=== PATIENT | female | born 2000 ===

== ENCOUNTER → 2020-02-12 11:30 | Outpatient (BNVA) | payer BC, OTHER, SELFPAY | PROVIDERS: PCP Physician Assistant; Referring Provider Physician Assistant; Visit Provider Internal Medicine Gastroenterology | DX: Z76.89 Persons encountering health services in other specified circumstances (principal) ==

== ENCOUNTER 2020-03-27 14:07 | Outpatient (REF) | payer BC, OTHER, SELFPAY | END 2020-03-27 14:08 | disposition home or self-care (01) | LOC: HO.LAB 14:07 | PROVIDERS: PCP Physician Assistant; Visit Provider Internal Medicine | DX: Z20.828 Contact with and (suspected) exposure to other viral communicable diseases (principal) | CPT/HCPCS: C9803; U0003 ==

== ENCOUNTER 2020-04-29 10:54 | Outpatient (REF) | payer BC, OTHER, SELFPAY ==
--- NOTE | 2020-04-29 11:18 | XR_ITS ---
EXAMINATION: XR ABDOMEN COMPLETE CLINICAL INDICATION: Generalized abdominal pain COMPARISON: None TECHNIQUE: 2 views of the abdomen. FINDINGS: The bowel gas pattern is normal with no evidence of ileus or obstruction. No unusual soft tissue calcifications are noted. The bones are unremarkable. XR/XR abdomen min 2V IMPRESSION: Unremarkable examination.
[2020-04-29 11:31] LABS: MANUAL DIFF FLAG NO
[2020-04-29 11:36] LABS: Basophils Percent Auto 0.8 % (0-2); Eosinophils Absolute Auto 0.1 X10*3/uL (0.0-0.4); Eosinophils Percent Auto 2.3 % (0-4); Hematocrit 39.1 % (37-47); Hemoglobin 13.3 g/dl (12.0-16.0); Imm Gran Abs Auto 0.01 X10*3/uL (0.00-0.03); Imm Gran Pct Auto 0.2 % (0.0-0.4); Lymphocytes Absolute Auto 1.6 X10*3/uL (1.2-4.9); Lymphocytes Percent Auto 30.2 % (20-40); Mean Corpuscular Hemoglobin 30.2 pg (27.0-33.0); Mean Corpuscular Volume 88.7 fL (80-98); Monocytes Absolute Auto 0.4 X10*3/uL (0.1-1.2); Monocytes Percent Auto 7.6 % (2-11); Neutrophils Absolute Auto 3.1 X10*3/uL (2.0-8.3); Neutrophils Percent Auto 58.9 % (45-73); Platelet Count 365 X10*3/uL (160-400); Red Blood Count 4.41 X10*6/uL (4.20-5.50); Red Cell Distribution Width 12.8 % (11.0-16.0); White Blood Count 5.3 X10*3/uL (4.8-10.8)
[2020-04-29 11:58] LABS: Alanine Aminotransferase 9 U/L (0-31); Albumin Level 4.6 g/dL (3.5-5.0); Alkaline Phosphatase 50 U/L (39-117); Anion Gap 14 (12-20); Aspartate Amino Transferase 12 U/L (5-31); Bilirubin Direct 0.3 mg/dL (0.0-0.5); Bilirubin Total 0.6 mg/dL (0.0-1.0); Blood Urea Nitrogen 6 mg/dL (9-16); Calcium 9.6 mg/dL (8.4-10.2); Carbon Dioxide 27 mmol/L (22-29); Chloride 104 mmol/L (96-108); Estimated Glomerular Filt Rate > 60; Glucose Fasting 78 mg/dL (60-99); Sodium 141 mmol/L (135-145); Total Protein 7.4 g/dL (6.5-8.0)
== END 2020-04-29 10:55 | disposition home or self-care (01) ==
LOC: HO.LAB 10:54
PROVIDERS: Absent Provider Physician Assistant; PCP Physician Assistant; Visit Provider Nurse Practitioner Family
DX: R10.84 Generalized abdominal pain (principal); R11.0 Nausea; K21.9 Gastro-esophageal reflux disease without esophagitis
CPT/HCPCS: 36415; 74019; 80048; 80076; 85025

== ENCOUNTER → 2020-05-13 11:34 | Outpatient (BNVA) | payer BC, OTHER, SELFPAY | PROVIDERS: PCP Physician Assistant; Visit Provider Internal Medicine Gastroenterology ==

== ENCOUNTER 2020-05-21 09:05 | Outpatient (REF) | payer BC, OTHER, SELFPAY ==
--- NOTE | ~2020-05-21 | FL_ITS ---
EXAMINATION: SMALL BOWEL CLINICAL INFORMATION: Generalized abdominal pain. COMPARISON: None. TECHNIQUE: KUB was obtained. Subsequently, 2 cups of barium was administered and sequential images obtained over the abdomen. FINDINGS: KUB: There is scattered stool and gas seen. No distention. Following oral administration of 2 cups of barium, there is good opacification of stomach, duodenal bulb and sweep. There is contrast opacifying small bowel loops which are normal in course and caliber. No stricture, distention or mass effect seen. On spot images, the ileocecal junction, terminal ileum and cecum appear normal. Appendix is not seen. The small bowel transit time is 60 minutes. FLUOROSCOPY TIME: 0.5 minutes. DOSE AREA PRODUCT: 2.366 uGy-m2 (microgray-meter squared). FL/FL upper GI small bowel IMPRESSION: Unremarkable small bowel follow-through.
== END 2020-05-21 09:06 | disposition home or self-care (01) ==
LOC: HO.XRAY 09:05
PROVIDERS: Visit Provider Physician Assistant
DX: R10.84 Generalized abdominal pain (principal)
CPT/HCPCS: 74240; 74248

== ENCOUNTER 2021-04-21 05:53 | Emergency (ER) | payer BC, SELFPAY ==
--- NOTE | ~2021-04-21 | CT_ITS ---
EXAMINATION: CT ABDOMEN AND PELVIS WITH CONTRAST CLINICAL INFORMATION: Abdominal pain. COMPARISON: Small bowel follow-through fluoroscopic study dated from 05/21/2020 and abdominal ultrasound dated from 11/02/2019. TECHNIQUE: Multidetector volumetric images were obtained from the superior aspect of the liver through the pubic symphysis following administration 85 mL of Omnipaque 350 intravenous contrast. Sagittal and coronal reformatted images were obtained on the technologist's workstation. Oral contrast: No This CT examination was performed using dose optimization techniques as appropriate, variously including the following: *Automated exposure control *Adjustment of mA and/or kV according to patient size (this includes techniques or standardized protocols for targeted exams where dose is matched to indication/reason for exam; i.e. extremities or head) *Use of iterative reconstruction technique DLP: 414 mGy-cm FINDINGS: LUNG BASES: The visualized lung bases are unremarkable. LIVER, GALLBLADDER, AND BILIARY TREE: The liver is normal in size, shape, and attenuation. No focal hepatic lesion or biliary ductal dilatation is present. The gallbladder is unremarkable with no evidence of radiopaque gallstones, gallbladder wall thickening, or obvious pericholecystic inflammatory changes. PANCREAS: Unremarkable. SPLEEN: Unremarkable. ADRENAL GLANDS: Unremarkable. KIDNEYS AND URETERS: There are patchy bilateral nephrograms with a few too small to characterize cortical hypodensities that likely represent simple cysts. No nephrolithiasis or hydronephrosis. No significant perinephric fat stranding. BLADDER: Unremarkable. GASTROINTESTINAL TRACT: The stomach and the small bowel are nondilated. Normal appendix. The distal colon is under distended which limits assessment of wall thickening. However, there is no significant pericolic inflammatory changes to suspect acute colitis or acute diverticulitis. No bowel obstruction. ABDOMINAL WALL: No significant hernia is appreciated. LYMPH NODES: There is subtle symmetric fat stranding of the lower anterior mesentery (5:20) which is likely in part related with volume averaging and of uncertain significance. There is no lymphadenopathy by size criteria. VASCULAR: Unremarkable. PELVIC VISCERA: Questionable small intramural fibroid in the fundus measuring 1.2 cm on image 34 of series 5. The left ovary is identified on image 55 and the right ovary is identified on image 61 of series 3. These are within normal limits. There is trace amount of free fluid layering in the cul-de-sac which is likely physiologic. OSSEOUS STRUCTURES: No acute or aggressive osseous abnormalities. CT/CT abdomen pelvis w con IMPRESSION: Bilateral striated nephrograms are indeterminate and could be related with acute pyelonephritis in the appropriate clinical context. This critical result was discussed with Dr. Grace at 04/21/2021 10:31 AM and it was ascertained that the content and urgency of the report was understood at the time of direct communication.
[2021-04-21 06:09] VITALS: BP 108/58; PULSE 96; RESP 20; TEMP 35.6; O2SAT 100; BMI 23.8
[2021-04-21] MEDS: ondansetron HCL 4 MG/2 ML VIAL IVPUSH ×2 (06:13→07:50)
--- NOTE | 2021-04-21 06:21 | PC.NURSE ---
Pt medicated for vomiting. Pt aware of plan for urine sample once able.
--- NOTE | 2021-04-21 07:25 | PC.NURSE ---
awaiting md stock, c/o severe low abd pain, skin wpd, still has nausea, no vomitting
--- NOTE | 2021-04-21 07:40 | ED.FEMALEGU ---
HPI - Female Genitourinary General Chief complaint: Urogenital-Female Stated complaint: vomiting Time Seen by Provider: 04/21/21 06:04 Source: patient Mode of arrival: ambulatory Limitations: no limitations History of Present Illness HPI Narrative: This is a 21 years old of female presented to the emergency department with chief complaint of nausea abdominal cramps, she states that each time she gets periods she get nausea and vomiting MD elicited complaint: other (vomiting) Onset (ago): day(s) (1) Severity: moderate Female Urogenital Radiation: Non-Radiating Quality of pain: cramping Consistency: constant Exacerbating factors: none Relieving factors: none Treatment prior to arrival: none Related Data Previous Rx's Medication Instructions Recorded metronidazole 1 % topical gel 1 appl TOPICAL DAILY 30 Days #60 g 08/13/20 ondansetron HCl 8 mg tablet 8 mg PO Q12H PRN #30 tab 08/13/20 promethazine 12.5 mg tablet 12.5 mg PO BEDTIME PRN 30 Days #30 03/30/21 tab MDD 1 pantoprazole 20 mg tablet,delayed 20 mg PO DAILY #30 tab 04/13/21 release cephalexin 500 mg capsule 500 mg PO Q8H #21 cap 04/21/21 metoclopramide HCl 10 mg tablet 10 mg PO Q6H PRN #15 tab 04/21/21 (Reglan) Allergies Allergy/AdvReac Type Severity Reaction Status Date / Time seasonal Allergy Unknown sneezing, Uncoded 04/21/21 06:13 stuffy nose Review of Systems Constitutional: Constitutional: Reports no additional constitutional complaints Cardiovascular: Cardiovascular: Reports no additional cardiovascular complaints Respiratory: Respiratory: Reports no additional respiratory complaints Gastrointestinal: Gastrointestinal: Reports no additional gastrointestinal complaints [facility] Past Medical History Medical History GERD (gastroesophageal reflux disease) Headache Nausea Surgical History History of placement of ear tubes Family History Family History Father In good health Mother Mood disorder Depression Chronic mental illness Maternal Grandmother Lymphoma Social History Social History Household Members: Family Household Members Other:: Mother Alcohol intake: never Advance Directives: No Advance Directives Information Provided: Yes Patient : No 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 [employer] Physical Exam Vital Signs: Vital Signs: Last Vital Signs Temp 98.8 F 04/21/21 10:36 Pulse 61 04/21/21 10:36 Resp 16 04/21/21 10:36 BP 114/80 04/21/21 10:36 Pulse Ox 100 04/21/21 10:36 BMI result Body Mass Index 23.8 Const: General: cooperative Nutritional Appearance: average body habitus Orientation/consciousness: patient oriented x3 Limitations: no limitations HENMT: Head: Yes normal to inspection General nose exam: Normal external nose present Face and sinus: Yes normal facial exam Mouth: Normal oral and palatal mucosa present Neck: Neck: Yes normal visual inspection and Yes full ROM Chest: Chest palpation & inspection: normal inspection of the chest Resp: Effort & Inspection: normal respiratory effort Auscultation: clear to auscultation bilaterally Cardio: Jugular venous distension: no JVD Rate: regular rate Rhythm: regular rhythm GI: Other: soft no tender no peritoneal sign : External Female Exam: normal external appearance Speculum Exam - Vagina: normal appearance of the vagina Speculum Exam - Cervix: normal appearance of the cervix and Other cervical findings present (minimal bleeding) Skin: General skin exam: no rashes or lesions noted and elasticity normal Wounds: no wounds Neuro: General: patient oriented x3 Course Reevaluation(s) Reevaluation #1: She is feeling much better now she is tolerating p.o. well CT scan read by the radiologist as a possible pyelo, but UA is not impressive. At this will discharge pt home with follow-up with primary care physician,I will give a couse of AB given reading in the ct MDM - Female Genitourinary Lab Data Result diagrams: 04/21/21 07:44 04/21/21 07:44 Labs: Lab Results 04/21/21 04/21/21 04/21/21 Range/Units 07:44 07:44 10:33 WBC 14.0 H (4.8-10.8) X10*3/uL RBC 4.49 (4.20-5.50) X10*6/uL Hgb 13.7 (12.0-16.0) g/dl Hct 39.6 (37.0-47.0) % MCV 88.2 (80.0-98.0) fL MCH 30.5 (27.0-33.0) pg MCHC 34.6 (31.0-35.0) g/dl RDW 12.4 (11.0-16.0) % Plt Count 368 (160-400) X10*3/uL MPV 9.3 L (9.4-12.3) fL Immature Gran % (Auto) 0.6 H (0.0-0.4) % Neut % (Auto) 78.9 H (45-73) % Lymph % (Auto) 10.2 L (20-40) % [place] % (Auto) 9.3 (2-11) % Eos % (Auto) 0.6 (0-4) % Baso % (Auto) 0.4 (0-2) % Lymph # (Auto) 1.4 (1.2-4.9) X10*3/uL [place] # (Auto) 1.3 H (0.1-1.2) X10*3/uL Eos # (Auto) 0.1 (0.0-0.4) X10*3/uL Baso # (Auto) 0.1 (0.0-0.2) X10*3/uL Abs Immat Gran (auto) 0.09 H (0.00-0.03) X10*3/uL Absolute Neuts (auto) 11.1 H (2.0-8.3) x10*3/uL Absolute Nucleated RBC 0.000 (0.0-0.012) X10*3/uL Nucleated RBC % (auto) 0.0 (0.0-0.2) /100WBC Sodium 140 (135-145) mmol/L Potassium 3.3 (3.3-5.1) mmol/L Chloride 109 H (96-108) mmol/L Carbon Dioxide 18 L (22-29) mmol/L Anion Gap 16 (12-20) BUN 12 (9-16) mg/dL Creatinine 0.88 (0.5-1.4) mg/dL Estim Creat Clear Calc 79.9 Estimated GFR > 60 Random Glucose 148 H (60-115) mg/dL Calcium 10.0 (8.4-10.2) mg/dL Total Bilirubin 0.6 (0.0-1.0) mg/dL AST 14 (5-31) U/L ALT 13 (0-31) U/L Alkaline Phosphatase 52 (39-117) U/L Total Protein 7.3 (6.5-8.0) g/dL Albumin 4.2 (3.5-5.0) g/dL Beta HCG, Quant < 2 mIU/mL Urine Color PINK Urine Appearance HAZY Urine pH 7.0 (5.0-8.0) Ur Specific [place] 1.015 (1.005-1.025) Urine Protein TRACE (NEG-TRACE) MG/DL Urine Glucose (UA) NEG (NEG) MG/DL Urine Ketones 15 (NEG) MG/DL Urine Blood 3+ H (NEG) Urine Nitrite NEG (NEG) Ur Leukocyte Esterase TRACE H (NEG) Urine RBC TNTC H (0) /HPF Urine WBC 1-4 (0-4) /HPF Ur Squamous Epith Cells 1+ /LPF Urine Bacteria NONE /LPF Urine Test (NEGATIVE) 04/21/21 Range/Units 10:33 WBC (4.8-10.8) X10*3/uL RBC (4.20-5.50) X10*6/uL Hgb (12.0-16.0) g/dl Hct (37.0-47.0) % MCV (80.0-98.0) fL MCH (27.0-33.0) pg MCHC (31.0-35.0) g/dl RDW (11.0-16.0) % Plt Count (160-400) X10*3/uL MPV (9.4-12.3) fL Immature Gran % (Auto) (0.0-0.4) % Neut % (Auto) (45-73) % Lymph % (Auto) (20-40) % [place] % (Auto) (2-11) % Eos % (Auto) (0-4) % Baso % (Auto) (0-2) % Lymph # (Auto) (1.2-4.9) X10*3/uL [place] # (Auto) (0.1-1.2) X10*3/uL Eos # (Auto) (0.0-0.4) X10*3/uL Baso # (Auto) (0.0-0.2) X10*3/uL Abs Immat Gran (auto) (0.00-0.03) X10*3/uL Absolute Neuts (auto) (2.0-8.3) x10*3/uL Absolute Nucleated RBC (0.0-0.012) X10*3/uL Nucleated RBC % (auto) (0.0-0.2) /100WBC Sodium (135-145) mmol/L Potassium (3.3-5.1) mmol/L Chloride (96-108) mmol/L Carbon Dioxide (22-29) mmol/L Anion Gap (12-20) BUN (9-16) mg/dL Creatinine (0.5-1.4) mg/dL Estim Creat Clear Calc Estimated GFR Random Glucose (60-115) mg/dL Calcium (8.4-10.2) mg/dL Total Bilirubin (0.0-1.0) mg/dL AST (5-31) U/L ALT (0-31) U/L Alkaline Phosphatase (39-117) U/L Total Protein (6.5-8.0) g/dL Albumin (3.5-5.0) g/dL Beta HCG, Quant mIU/mL Urine Color Urine Appearance Urine pH (5.0-8.0) Ur Specific [place] (1.005-1.025) Urine Protein (NEG-TRACE) MG/DL Urine Glucose (UA) (NEG) MG/DL Urine Ketones (NEG) MG/DL Urine Blood (NEG) Urine Nitrite (NEG) Ur Leukocyte Esterase (NEG) Urine RBC (0) /HPF Urine WBC (0-4) /HPF Ur Squamous Epith Cells /LPF Urine Bacteria /LPF Urine Test NEGATIVE (NEGATIVE) Imaging Data CT scan - abdomen: Radiologist's impression: anterior mesentery (5:20) which is likely in part related with volume averaging and of uncertain significance. There is no lymphadenopathy by size criteria. VASCULAR: Unremarkable. PELVIC VISCERA: Questionable small intramural fibroid in the fundus measuring 1.2 cm on image 34 of series 5. The left ovary is identified on image 55 and the right ovary is identified on image 61 of series 3. These are within normal limits. There is trace amount of free fluid layering in the cul-de-sac which is likely physiologic.? OSSEOUS STRUCTURES: No acute or aggressive osseous abnormalities.? CT/CT abdomen pelvis w con IMPRESSION: ? Bilateral striated nephrograms are indeterminate and could be related with acute pyelonephritis in the appropriate clinical context. ? This critical result was discussed with Dr. Grace at 04/21/2021 10:31 AM and it was ascertained that the content and urgency of the report was understood at the time of direct communication. ? Dictated By: Daphnie Solano Signed By: <Electronically signed by Daphnie? Russ in OV> 04/21/21 1032 DD/ 0954 TD/TT:? 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: Dictated By: Discharge Plan Discharge Clinical Impression: Vomiting, UTI (urinary tract infection), Nausea Patient Disposition: Home, Self-Care Instructions: Acute Nausea and Vomiting (ED) Additional Instructions: Follow-up with your primary care physician, clear liquid diet today, return if you worse Prescriptions: New cephalexin 500 mg capsule 500 mg PO Q8H Qty: 21 RF: 0 metoclopramide HCl [Reglan] 10 mg tablet 10 mg PO Q6H PRN (Reason: nausea and vomiting) Qty: 15 RF: 0 No Action promethazine 12.5 mg tablet 12.5 mg PO BEDTIME MDD 1 PRN (Reason: nausea and vomiting) 30 Days Qty: 30 RF: 3 pantoprazole 20 mg tablet,delayed release (DR/EC) 20 mg PO DAILY Qty: 30 RF: 3 metronidazole 1 % gel 1 appl topical DAILY 30 Days Qty: 60 RF: 0 ondansetron HCl 8 mg tablet 8 mg PO Q12H PRN (Reason: nausea and vomiting) Qty: 30 RF: 1 Referrals: Derek Dia PA-C [Primary Care Provider] - 2 days
[2021-04-21 07:47] LABS: MANUAL DIFF FLAG NO
[2021-04-21] MEDS: Ketorolac Tromethamine 30 MG/ML VIAL 15 MG IVPUSH (07:47)
[2021-04-21] MEDS: 0.9 % Sodium Chloride 1,000 ML 999 ML IVCONT ×3 (07:50→10:07)
[2021-04-21 07:51] LABS: Basophils Absolute Auto 0.1 X10*3/uL (0.0-0.2); Basophils Percent Auto 0.4 % (0-2); Eosinophils Absolute Auto 0.1 X10*3/uL (0.0-0.4); Eosinophils Percent Auto 0.6 % (0-4); Hematocrit 39.6 % (37.0-47.0); Hemoglobin 13.7 g/dl (12.0-16.0); Imm Gran Abs Auto 0.09 X10*3/uL (0.00-0.03); Imm Gran Pct Auto 0.6 % (0.0-0.4); Lymphocytes Absolute Auto 1.4 X10*3/uL (1.2-4.9); Lymphocytes Percent Auto 10.2 % (20-40); Mean Corpuscular HGB Conc 34.6 g/dl (31.0-35.0); Mean Corpuscular Hemoglobin 30.5 pg (27.0-33.0); Mean Corpuscular Volume 88.2 fL (80.0-98.0); Mean Platelet Volume 9.3 fL (9.4-12.3); Monocytes Absolute Auto 1.3 X10*3/uL (0.1-1.2); Monocytes Percent Auto 9.3 % (2-11); Neutrophils Absolute Auto 11.1 x10*3/uL (2.0-8.3); Neutrophils Percent Auto 78.9 % (45-73); Platelet Count 368 X10*3/uL (160-400); Red Blood Count 4.49 X10*6/uL (4.20-5.50); Red Cell Distribution Width 12.4 % (11.0-16.0)
[2021-04-21 08:06] LABS: Alanine Aminotransferase 13 U/L (0-31); Albumin Level 4.2 g/dL (3.5-5.0); Alkaline Phosphatase 52 U/L (39-117); Anion Gap 16 (12-20); Aspartate Amino Transferase 14 U/L (5-31); Bilirubin Total 0.6 mg/dL (0.0-1.0); Blood Urea Nitrogen 12 mg/dL (9-16); Carbon Dioxide 18 mmol/L (22-29); Chloride 109 mmol/L (96-108); Creatinine Clr Calc Pharmacy 79.9; Estimated Glomerular Filt Rate > 60; Glucose Random 148 mg/dL (60-115); Potassium 3.3 mmol/L (3.3-5.1); Sodium 140 mmol/L (135-145); Total Protein 7.3 g/dL (6.5-8.0)
[2021-04-21 08:12] LABS: HCG Quantitative < 2 mIU/mL
[2021-04-21] MEDS: diphenhydrAMINE HCL 50 MG/ML VIAL 12.5 MG IVPUSH (09:29)
[2021-04-21] MEDS: Metoclopramide HCl 10 MG/2 ML VIAL IVPUSH (09:32)
[2021-04-21] MEDS: iohexoL 350 MG/ML 100 ML INFUS..BTL 85 ML IV (09:33)
[2021-04-21 10:36] VITALS: BP 114/80; PULSE 61; RESP 16; TEMP 37.1; O2SAT 100
[2021-04-21 10:44] LABS: Appearance Urine HAZY; Glucose Urine UA NEG (NEG); Leukocyte Esterase Urine TRACE (NEG); Nitrite Urine NEG (NEG); Specific Gravity - Urine 1.015 (1.005-1.025); UACC Culture Trigger YES; Urine Blood 3+ (NEG); Urine Ketones 15 MG/DL (NEG); Urine Protein TRACE MG/DL (NEG-TRACE)
[2021-04-21 10:45] LABS: Color Urine PINK
[2021-04-21 10:47] LABS: UPreg QC Valid YES; Urine Pregnancy NEGATIVE (NEGATIVE)
[2021-04-21 10:59] LABS: RBC Urine TNTC /HPF (0); Squamous Epithelial Cell Urine 1+ /LPF
[2021-04-21] MEDS: cefTRIAXone sodium 1 GM in 0.9 % Sodium Chloride 50 ML IV (12:06)
== END 2021-04-21 14:26 | disposition home or self-care (01) ==
PROVIDERS: Student in an Organized Health Care Education/Training Program; Emergency Provider Emergency Medicine; PCP Physician Assistant
DX: R11.2 Nausea with vomiting, unspecified (principal); N39.0 Urinary tract infection, site not specified
CPT/HCPCS: 36415; 74177; 80053; 81001; 81025; 84702; 85025; 87086; 87147; 96361; 96365; 96375; 96376; 99283; 99285; J0696; J1200; J1885; J2405; J2765; Q9967

== ENCOUNTER 2021-05-15 13:27 | Emergency (ER) | payer BC, SELFPAY ==
[2021-05-15 13:36] VITALS: BP 111/68; PULSE 97; RESP 16; TEMP 36.4; O2SAT 100; BMI 23.8
[2021-05-15 14:10] LABS: MANUAL DIFF FLAG NO
[2021-05-15 14:15] LABS: Basophils Percent Auto 0.4 % (0-2); Eosinophils Percent Auto 0.2 % (0-4); Hematocrit 39.7 % (37.0-47.0); Hemoglobin 13.6 g/dl (12.0-16.0); Imm Gran Abs Auto 0.05 X10*3/uL (0.00-0.03); Imm Gran Pct Auto 0.5 % (0.0-0.4); Lymphocytes Absolute Auto 0.8 X10*3/uL (1.2-4.9); Lymphocytes Percent Auto 8.6 % (20-40); Mean Corpuscular HGB Conc 34.3 g/dl (31.0-35.0); Mean Corpuscular Hemoglobin 30.6 pg (27.0-33.0); Mean Corpuscular Volume 89.4 fL (80.0-98.0); Mean Platelet Volume 9.5 fL (9.4-12.3); Monocytes Absolute Auto 0.6 X10*3/uL (0.1-1.2); Neutrophils Absolute Auto 7.9 x10*3/uL (2.0-8.3); Neutrophils Percent Auto 84.3 % (45-73); Platelet Count 336 X10*3/uL (160-400); Red Blood Count 4.44 X10*6/uL (4.20-5.50); Red Cell Distribution Width 12.4 % (11.0-16.0); White Blood Count 9.4 X10*3/uL (4.8-10.8)
[2021-05-15 14:29] LABS: Alanine Aminotransferase 10 U/L (0-31); Albumin Level 4.4 g/dL (3.5-5.0); Alkaline Phosphatase 54 U/L (39-117); Anion Gap 15 (12-20); Aspartate Amino Transferase 16 U/L (5-31); Bilirubin Total 0.7 mg/dL (0.0-1.0); Blood Urea Nitrogen 7 mg/dL (9-16); Calcium 9.5 mg/dL (8.4-10.2); Carbon Dioxide 20 mmol/L (22-29); Chloride 109 mmol/L (96-108); Creatinine Clr Calc Pharmacy 108.2; Estimated Glomerular Filt Rate > 60; Glucose Random 106 mg/dL (60-115); Potassium 3.6 mmol/L (3.3-5.1); Sodium 140 mmol/L (135-145); Total Protein 7.5 g/dL (6.5-8.0)
[2021-05-15 15:12] VITALS: BP 112/63; PULSE 97; RESP 16; TEMP 36.8; O2SAT 99
[2021-05-15 15:23] LABS: Appearance Urine CLEAR; Color Urine YELLOW; Glucose Urine UA NEG (NEG); Leukocyte Esterase Urine NEG (NEG); Nitrite Urine NEG (NEG); PH 7.5 (5.0-8.0); UACC Culture Trigger NO; Urine Blood 3+ (NEG); Urine Ketones 40 MG/DL (NEG); Urine Protein TRACE MG/DL (NEG-TRACE)
[2021-05-15 15:24] LABS: UPreg QC Valid YES; Urine Pregnancy NEGATIVE (NEGATIVE)
[2021-05-15 15:30] LABS: Bacteria Urine 1+ /LPF; Squamous Epithelial Cell Urine 1+ /LPF; WBC Urine 0 /HPF (0-4)
[2021-05-15] MEDS: Ondansetron ODT 4 MG TAB.RAPDIS TRANSLINGU (15:30)
--- NOTE | 2021-05-15 16:43 | ED_ITS ---
HPI - Abdominal Pain General Chief Complaint: Abdominal Pain Stated Complaint: Abd pain/Vomiting/Chills Time Seen by Provider: 05/15/21 16:42 Source: patient Mode of arrival: ambulatory Limitations: no limitations History of Present Illness HPI narrative: 21-year-old female healthy presents to the ED for painful menstruation. Patient states patient states every time she is on her menstruation she has severe abdo power cramping pain with nausea and vomiting and once her menstruation done the symptoms resolved. Patient states having these symptoms since she started having menstruation in her early teens. Patient states she has never followed up with OBGYN doctor for this issue. Patient states mother has similar issue but then started taking control pill and no longer had menstruation and symptoms resolved. Denies any recent trauma or any recent unprotected sex. Patient states no dysuria or hematuria. Related Data Previous Rx's Medication Instructions Recorded metronidazole 1 % topical gel 1 appl TOPICAL DAILY 30 Days #60 g 08/13/20 ondansetron HCl 8 mg tablet 8 mg PO Q12H PRN #30 tab 08/13/20 promethazine 12.5 mg tablet 12.5 mg PO BEDTIME PRN 30 Days #30 03/30/21 tab MDD 1 pantoprazole 20 mg tablet,delayed 20 mg PO DAILY #30 tab 04/13/21 release cephalexin 500 mg capsule 500 mg PO Q8H #21 cap 04/21/21 metoclopramide HCl 10 mg tablet 10 mg PO Q6H PRN #15 tab 04/21/21 (Reglan) naproxen 500 mg tablet 500 mg PO BID PRN 10 Days #20 tab 05/15/21 Allergies Allergy/AdvReac Type Severity Reaction Status Date / Time seasonal Allergy Unknown sneezing, Uncoded 04/21/21 06:13 stuffy nose Review of Systems Review of Systems Painful menstruation with nausea abdominal cramping Yes all other systems are reviewed and are negative Physical Exam Verdana 4l Vital Signs: Verdana 4d Verdana 4d Vital Signs: Verdana 4d Verdana 4Bd Last Vital Signs Verdana 4d Compliance Monitor New 4d Compliance Monitor New 4d Temp 98.3 F 05/15/21 15:12 Compliance Monitor New 4d Pulse 97 05/15/21 15:12 Compliance Monitor New 4d Resp 16 05/15/21 15:12 BP 112/63 05/15/21 15:12 Pulse Ox 99 05/15/21 15:12 BMI result Body Mass Index 23.8 Const: General: cooperative, healthy appearing, comfortable, no acute distress, well developed, alert, awake and Physically active Orientation/consciousness: oriented to time and patient oriented x3 HENMT: Head: Yes normal to inspection, Yes No palpable skull fracture present and Yes normocephalic Eyes: General: appearance normal, both eyes and all related structures Neck: Neck: Yes normal visual inspection, Yes full ROM, Yes no lymphadenopathy, Yes no meningeal signs, Yes trachea midline, Yes supple, No anterior neck swelling and No tender Chest: Chest palpation & inspection: normal inspection of the chest and normal palpation of entire chest wall Resp: Effort & Inspection: normal respiratory effort and able to speak in complete sentences Auscultation: clear to auscultation bilaterally Cardio: Jugular venous distension: no JVD Heart sounds: S1 normal heart sound present and S2 normal heart sound present GI: Inspection: Yes normal to inspection and No abdominal wall ecchymosis Palpation (GI): Soft to palpation, not firm, nontender, no guarding and not rigid : General: No CVA tenderness and Yes no CVA tenderness Back/Spine/Pelvis: Back: no CVA tenderness, No CVA tenderness and No back tenderness Skin: General skin exam: no rashes or lesions noted and elasticity normal Neuro: General: oriented to time, patient oriented x3, gait normal, no meningeal signs and CN's II-XI intact bilaterally Cranial nerves: Yes CN's II-XII intact bilaterally Extrem: General: Yes normal to inspection and Yes full ROM Psych: Appearance: grossly normal, well kempt and not disheveled Course Course Course Narrative: Patient will have basic labs and UA she sent. Pain med orders. Reevaluation(s) Reevaluation #1: Patient's abdominal cramping resolved after receiving Toradol. Patient states nausea resolved after receiving Zofran. Patient presently denies having any heavy vaginal bleeding. Patient states bleeding is normal flow. patient informed she may need to follow-up with OBGYN to re-evaluate for outpatient ultrasound and also to be evaluated for the endometriosis. Patient given information to call Dr. Street Time: 16:50 MDM - Abdominal Pain MDM Narrative Medical decision making narrative: Dysmenorrhea Lab Data Result diagrams: 05/15/21 14:06 05/15/21 14:06 Labs: Lab Results 05/15/21 05/15/21 05/15/21 Range/Units 14:06 14:06 15:13 WBC 9.4 (4.8-10.8) X10*3/uL RBC 4.44 (4.20-5.50) X10*6/uL Hgb 13.6 (12.0-16.0) g/dl Hct 39.7 (37.0-47.0) % MCV 89.4 (80.0-98.0) fL MCH 30.6 (27.0-33.0) pg MCHC 34.3 (31.0-35.0) g/dl RDW 12.4 (11.0-16.0) % Plt Count 336 (160-400) X10*3/uL MPV 9.5 (9.4-12.3) fL Immature Gran % (Auto) 0.5 H (0.0-0.4) % Neut % (Auto) 84.3 H (45-73) % Lymph % (Auto) 8.6 L (20-40) % [place] % (Auto) 6.0 (2-11) % Eos % (Auto) 0.2 (0-4) % Baso % (Auto) 0.4 (0-2) % Lymph # (Auto) 0.8 L (1.2-4.9) X10*3/uL [place] # (Auto) 0.6 (0.1-1.2) X10*3/uL Eos # (Auto) 0.0 (0.0-0.4) X10*3/uL Baso # (Auto) 0.0 (0.0-0.2) X10*3/uL Abs Immat Gran (auto) 0.05 H (0.00-0.03) X10*3/uL Absolute Neuts (auto) 7.9 (2.0-8.3) x10*3/uL Absolute Nucleated RBC 0.000 (0.0-0.012) X10*3/uL Nucleated RBC % (auto) 0.0 (0.0-0.2) /100WBC Sodium 140 (135-145) mmol/L Potassium 3.6 (3.3-5.1) mmol/L Chloride 109 H (96-108) mmol/L Carbon Dioxide 20 L (22-29) mmol/L Anion Gap 15 (12-20) BUN 7 L (9-16) mg/dL Creatinine 0.65 (0.5-1.4) mg/dL Estim Creat Clear Calc 108.2 Estimated GFR > 60 Random Glucose 106 (60-115) mg/dL Calcium 9.5 (8.4-10.2) mg/dL Total Bilirubin 0.7 (0.0-1.0) mg/dL AST 16 (5-31) U/L ALT 10 (0-31) U/L Alkaline Phosphatase 54 (39-117) U/L Total Protein 7.5 (6.5-8.0) g/dL Albumin 4.4 (3.5-5.0) g/dL Urine Color YELLOW Urine Appearance CLEAR Urine pH 7.5 (5.0-8.0) Ur Specific [place] 1.010 (1.005-1.025) Urine Protein TRACE (NEG-TRACE) MG/DL Urine Glucose (UA) NEG (NEG) MG/DL Urine Ketones 40 (NEG) MG/DL Urine Blood 3+ H (NEG) Urine Nitrite NEG (NEG) Ur Leukocyte Esterase NEG (NEG) Urine RBC 15-29 H (0) /HPF Urine WBC 0 (0-4) /HPF Ur Squamous Epith Cells 1+ /LPF Urine Bacteria 1+ /LPF Urine Test (NEGATIVE) 05/15/21 Range/Units 15:13 WBC (4.8-10.8) X10*3/uL RBC (4.20-5.50) X10*6/uL Hgb (12.0-16.0) g/dl Hct (37.0-47.0) % MCV (80.0-98.0) fL MCH (27.0-33.0) pg MCHC (31.0-35.0) g/dl RDW (11.0-16.0) % Plt Count (160-400) X10*3/uL MPV (9.4-12.3) fL Immature Gran % (Auto) (0.0-0.4) % Neut % (Auto) (45-73) % Lymph % (Auto) (20-40) % [place] % (Auto) (2-11) % Eos % (Auto) (0-4) % Baso % (Auto) (0-2) % Lymph # (Auto) (1.2-4.9) X10*3/uL [place] # (Auto) (0.1-1.2) X10*3/uL Eos # (Auto) (0.0-0.4) X10*3/uL Baso # (Auto) (0.0-0.2) X10*3/uL Abs Immat Gran (auto) (0.00-0.03) X10*3/uL Absolute Neuts (auto) (2.0-8.3) x10*3/uL Absolute Nucleated RBC (0.0-0.012) X10*3/uL Nucleated RBC % (auto) (0.0-0.2) /100WBC Sodium (135-145) mmol/L Potassium (3.3-5.1) mmol/L Chloride (96-108) mmol/L Carbon Dioxide (22-29) mmol/L Anion Gap (12-20) BUN (9-16) mg/dL Creatinine (0.5-1.4) mg/dL Estim Creat Clear Calc Estimated GFR Random Glucose (60-115) mg/dL Calcium (8.4-10.2) mg/dL Total Bilirubin (0.0-1.0) mg/dL AST (5-31) U/L ALT (0-31) U/L Alkaline Phosphatase (39-117) U/L Total Protein (6.5-8.0) g/dL Albumin (3.5-5.0) g/dL Urine Color Urine Appearance Urine pH (5.0-8.0) Ur Specific [place] (1.005-1.025) Urine Protein (NEG-TRACE) MG/DL Urine Glucose (UA) (NEG) MG/DL Urine Ketones (NEG) MG/DL Urine Blood (NEG) Urine Nitrite (NEG) Ur Leukocyte Esterase (NEG) Urine RBC (0) /HPF Urine WBC (0-4) /HPF Ur Squamous Epith Cells /LPF Urine Bacteria /LPF Urine Test NEGATIVE (NEGATIVE) Discharge Plan Discharge Clinical Impression: Dysmenorrhea Patient Disposition: Home, Self-Care Instructions: Dysmenorrhea (ED) Additional Instructions: Your blood work and urine came back normal. Please follow-up with your primary care provider. You should follow-up with outpatient OBGYN for further evaluation. Return to ED for any worsening abdominal pain, profuse vaginal bleeding, weakness, dizziness, flank pain, fever, chills, dysuria, or any other concerning symptoms. Prescriptions: New naproxen 500 mg tablet 500 mg PO BID PRN (Reason: pain) 10 Days Qty: 20 0RF No Action promethazine 12.5 mg tablet 12.5 mg PO BEDTIME MDD 1 PRN (Reason: nausea and vomiting) 30 Days Qty: 30 3RF Rx Instructions: Take one tablet by mouth once a day at bedtime as needed for nausea pantoprazole 20 mg tablet,delayed release (DR/EC) 20 mg PO DAILY Qty: 30 3RF cephalexin 500 mg capsule 500 mg PO Q8H Qty: 21 0RF metoclopramide HCl [Reglan] 10 mg tablet 10 mg PO Q6H PRN (Reason: nausea and vomiting) Qty: 15 0RF metronidazole 1 % gel 1 appl topical DAILY 30 Days Qty: 60 0RF ondansetron HCl 8 mg tablet 8 mg PO Q12H PRN (Reason: nausea and vomiting) Qty: 30 1RF Referrals: Kirit Street MD [Physician] - 2 days (Dysmenorrhea) Interventions: ED Discharge Assessment Last Done: 05/15/21 17:09 Discharge Date/Time: 05/15/21 17:10 Print Language: [place] [facility] Past Medical History Medical History GERD (gastroesophageal reflux disease) Headache Nausea Surgical History History of placement of ear tubes Family History Family History Father In good health Mother Mood disorder Depression Chronic mental illness Maternal Grandmother Lymphoma Social History Social History Household Members: Family Household Members Other:: Mother Alcohol intake: never Advance Directives: No Advance Directives Information Provided: No 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
== END 2021-05-15 17:10 | disposition home or self-care (01) ==
PROVIDERS: Emergency Provider Emergency Medicine Emergency Medical Services; PCP Physician Assistant
DX: N94.6 Dysmenorrhea, unspecified (principal); R11.0 Nausea
CPT/HCPCS: 36415; 80053; 81001; 81025; 85025; 99283; 99284

== ENCOUNTER → 2021-06-11 08:55 | Outpatient (BNVA) | payer BC, SELFPAY | PROVIDERS: PCP Physician Assistant; Visit Provider Advanced Practice Midwife ==

== ENCOUNTER 2021-12-10 11:58 | Outpatient (REF) | payer BC, SELFPAY ==
[2021-12-10 14:07] LABS: Hematocrit 40.9 % (37.0-47.0); Hemoglobin 13.7 g/dl (12.0-16.0); Mean Corpuscular HGB Conc 33.5 g/dl (31.0-35.0); Mean Corpuscular Hemoglobin 30.4 pg (27.0-33.0); Mean Corpuscular Volume 90.7 fL (80.0-98.0); Mean Platelet Volume 9.9 fL (9.4-12.3); Platelet Count 386 X10*3/uL (160-400); Red Blood Count 4.51 X10*6/uL (4.20-5.50); Red Cell Distribution Width 12.6 % (11.0-16.0); White Blood Count 8.1 X10*3/uL (4.8-10.8)
== END 2021-12-10 11:59 | disposition home or self-care (01) ==
LOC: HO.HMGCLDS 11:58
PROVIDERS: Emergency Medicine; PCP Physician Assistant; Visit Provider Physician Assistant
DX: R53.83 Other fatigue (principal)
CPT/HCPCS: 36415; 85027

== ENCOUNTER 2021-12-16 17:37 | Emergency (ER) | payer BC, SELFPAY ==
[2021-12-16 17:40] VITALS: BP 134/88; PULSE 81; RESP 18; TEMP 36.7; O2SAT 100; BMI 22.8
[2021-12-17 00:08] VITALS: BP 131/74; PULSE 68; RESP 16; TEMP 36.6; O2SAT 100
--- NOTE | 2021-12-17 00:47 | ED_ITS ---
HPI - General Adult General Chief complaint: Weakness Stated complaint: R side numbness/body aches Time Seen by Provider: 12/17/21 00:45 Source: patient and family Limitations: no limitations History of Present Illness HPI narrative: This is a 21-year-old female with a history of dysmenorrhea, depression, and some new, GERD, atypical chest pain, chronic abdominal pain, who complains that for several days she has had pain in her body, also a feeling of tingling in her right arm right leg and left leg. She also gets a tingling that goes up into her throat and tongue, which causes her to have trouble swallowing sometimes. Symptoms wax and wane. Patient denies any headache. She denies any fever. She denies any neck pain or stiffness. She denies any chest pain or shortness of breath. She has had nausea but denies vomiting. She was seen at a clinic objectively last week and had blood work done but does not know the results. She had a form with her PCP however it was canceled Related Data Previous Rx's Medication Instructions Recorded metoclopramide HCl 10 mg tablet 10 mg PO Q6H PRN nausea and 04/21/21 (Reglan) vomiting #15 tabs naproxen 500 mg tablet 500 mg PO BID PRN pain 10 days #20 05/15/21 tabs levonorgestrel 0.15 mg-ethinyl 1 tab PO DAILY #91 ea 06/11/21 estradiol 30 mcg tablets,3 mos pack(91) (Aura) ondansetron 4 mg disintegrating 4 mg PO QID PRN nausea and 06/16/21 tablet vomiting #14 tabs hydroxyzine HCl 10 mg tablet 20 mg PO BEDTIME 15 days #30 tabs 08/18/21 promethazine 12.5 mg tablet 12.5 mg PO BEDTIME PRN nausea and 10/06/21 vomiting 30 days #30 tabs ondansetron HCl 8 mg tablet 8 mg PO Q12H PRN nausea and 10/21/21 vomiting #30 tabs Allergies Allergy/AdvReac Type Severity Reaction Status Date / Time seasonal Allergy Unknown sneezing, Uncoded 12/10/21 11:20 stuffy nose Review of Systems Review of Systems: Yes all other systems are reviewed and are negative Constitutional: Constitutional: Reports as per HPI and Denies fever(s) Eyes: Eyes: Reports as per HPI, Reports no additional eye complaints and Denies blurry vision Comments: Patient did have brief blurred vision right eye but it resolved ENT: Reports system reviewed and no additional complaints, except as documented, Reports as per HPI, Denies nasal congestion, Denies nasal discharge and Denies sore throat Cardiovascular: Cardiovascular: Reports as per HPI, Denies chest pain and Denies dyspnea Respiratory: Respiratory: Reports as per HPI, Denies cough and Denies dyspnea Gastrointestinal: Gastrointestinal: Reports as per HPI, Denies abdominal pain, Denies diarrhea, Reports nausea and Denies vomiting Genitourinary: Comments: Irregular menses, was on control pill until a few weeks ago, had started in July Musculoskeletal: Musculoskeletal: Reports no additional musculoskeletal complaints and Denies numbness Integumentary/Breasts: Skin/Breast: Reports as per HPI and Denies rash Neurologic: Reports as per HPI, Denies focal weakness, Denies numbness and Reports paresthesias Psychiatric: Psychiatric: Reports no additional psychiatric complaints and Reports as per HPI Endocrine: Endocrine: Reports no additional endocrine complaints and Reports as per HPI Hematologic/Lymphatic: Hematologic/Lymphatic: Reports no additional hematologic/lymphatic complaints, Reports as per HPI and Reports other (No peripheral edema) [facility] Past Medical History Medical History GERD (gastroesophageal reflux disease) Headache Nausea Surgical History History of placement of ear tubes Family History Family History Father In good health Mother Mood disorder Depression Chronic mental illness Maternal Grandmother Lymphoma History of breast cancer Social History Social History (Updated 08/18/21 @ 16:20 by Derek Dia PA-C) Household Members: Family Household Members Other:: Mother Housing: Apartment Alcohol intake: never Patient Tobacco Use Status: Never used Tobacco e-Cigarette/Vaping Use: Never Used Second Hand Smoke Exposure: No Use of substances other than those prescribed or required for medical reasons: No Substance Use Type: Marijuana Advance Directives: No Advance Directives Information Provided: No service: No 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al status: student 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: [employer]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- [employer] Cognitive needs: No Hearing needs: No Vision needs: Yes (Glasses) Physical Exam ED Vital Signs: Vital Signs - 24 hr 12/16/21 17:40 12/17/21 00:08 Temperature 98.0 F 97.9 F Pulse Rate 81 68 Respiratory Rate 18 16 Blood Pressure 134/88 131/74 Pulse Oximetry 100 100 Oxygen Delivery Method Room Air Room Air BMI result Body Mass Index 22.8 Const General: no acute distress Orientation/consciousness: patient oriented x3 HENMT Head: Yes normal to inspection General nose exam: Normal external nose present Mouth: moist mucous membranes Throat: Yes posterior oropharynx normal, Yes tonsils normal and Yes uvula midline Eyes Eyelids: Yes eyelids normal Conjunctivae: conjunctivae normal Pupils: Equal, round and reactive pupils present Neck Neck: Yes supple Resp Effort & Inspection: normal respiratory effort Auscultation: clear to auscultation bilaterally Cardio Rate: regular rate Rhythm: regular rhythm Heart sounds: S1 normal heart sound present, S2 normal heart sound present, no gallops, no murmurs and no rubs GI Inspection: No distended Palpation (GI): Soft to palpation and nontender Auscultation: normal bowel sounds Skin General skin exam: other (Warm and dry) Neuro General: patient oriented x3 and CN's II-XI intact bilaterally Cranial nerves: Yes Equal, round and reactive pupils present Extrem General: Yes no pedal edema Psych Affect: normal affect Attitude: cooperative Medical Decision Making [facility] Narrative Medical decision making narrative: Patient with multiple complaints, states symptoms are worse when she is at work. Patient appears well clinically. The patient can have an outpatient workup by her primary care physician, may need Neurology referral. Doubt systemic neurologic disorder such as multiple sclerosis. Symptoms do not seem to fit into any particular pattern which might suggest collagen vascular disease. Doubt tick-borne illness. CBC drawn recently in clinic was normal. Discharge Plan Discharge Clinical Impression: Paresthesias, Myalgia Patient Disposition: Home, Self-Care Instructions: Paresthesia (ED), Musculoskeletal Pain (ED) Additional Instructions: Follow-up with her primary care physician. You can also follow up with Neurology Prescriptions: No Action ondansetron 4 mg tablet,disintegrating 4 mg PO QID PRN (Reason: nausea and vomiting) Qty: 14 0RF promethazine 12.5 mg tablet 12.5 mg PO BEDTIME MDD 1 PRN (Reason: nausea and vomiting) 30 Days Qty: 30 3RF Rx Instructions: Take one tablet by mouth once a day at bedtime as needed for nausea ondansetron HCl 8 mg tablet 8 mg PO Q12H PRN (Reason: nausea and vomiting) Qty: 30 1RF metoclopramide HCl [Reglan] 10 mg tablet 10 mg PO Q6H PRN (Reason: nausea and vomiting) Qty: 15 0RF naproxen 500 mg tablet 500 mg PO BID PRN (Reason: pain) 10 Days Qty: 20 0RF hydroxyzine HCl 10 mg tablet 20 mg PO BEDTIME 15 Days Qty: 30 0RF levonorgestrel-ethinyl estrad [Jolessa] 0.15 mg-30 mcg (91) tablets,dose pack,3 month 1 tab PO DAILY Qty: 91 1RF Referrals: Taryn Johnson MD [Physician] - 1 week Stand Alone Forms: Work/School Release Interventions: ED Discharge Assessment Last Done: 12/17/21 01:19 Discharge Date/Time: 12/17/21 01:23
== END 2021-12-17 01:23 | disposition home or self-care (01) ==
PROVIDERS: Emergency Provider Emergency Medicine; PCP Physician Assistant
DX: R20.2 Paresthesia of skin (principal); M79.10 Myalgia, unspecified site; Z79.899 Other long term (current) drug therapy; F12.90 Cannabis use, unspecified, uncomplicated
CPT/HCPCS: 99282; 99284

== ENCOUNTER 2021-12-23 11:39 | Outpatient (REF) | payer BC, SELFPAY ==
[2021-12-23 13:51] LABS: Hematocrit 39.4 % (37.0-47.0); Hemoglobin 13.5 g/dl (12.0-16.0); Mean Corpuscular HGB Conc 34.3 g/dl (31.0-35.0); Mean Corpuscular Hemoglobin 30.3 pg (27.0-33.0); Mean Corpuscular Volume 88.5 fL (80.0-98.0); Mean Platelet Volume 10.4 fL (9.4-12.3); Platelet Count 337 X10*3/uL (160-400); Red Blood Count 4.45 X10*6/uL (4.20-5.50); Red Cell Distribution Width 12.4 % (11.0-16.0); White Blood Count 5.6 X10*3/uL (4.8-10.8)
[2021-12-23 14:02] LABS: Anion Gap 12 (12-20); Blood Urea Nitrogen 8 mg/dL (9-16); Calcium 9.3 mg/dL (8.4-10.2); Carbon Dioxide 25 mmol/L (22-29); Chloride 106 mmol/L (96-108); Estimated Glomerular Filt Rate > 60; Glucose Random 89 mg/dL (60-115); Potassium 4.3 mmol/L (3.3-5.1); Sodium 139 mmol/L (135-145)
[2021-12-23 14:23] LABS: Vitamin D 25-OH Total 8.5 ng/mL (>30)
[2021-12-23 14:48] LABS: Folate 11.6 ng/mL (> or = 4.0); Vitamin B12 337 pg/mL (200-900)
[2021-12-26 05:21] LABS: Lyme Abs Screen <0.90 index
[2021-12-26 17:46] LABS: Cyclic Citrullinated Peptide <16 UNITS
[2021-12-27 14:47] LABS: Anti Nuclear Antibody Screen NEGATIVE (NEGATIVE)
[2021-12-29 22:57] LABS: Anti DNA DS Antibody 6 IU/mL
== END 2021-12-23 11:40 | disposition home or self-care (01) ==
LOC: HO.10HDL 11:39
PROVIDERS: Visit Provider Physician Assistant
DX: M79.10 Myalgia, unspecified site (principal); E53.8 Deficiency of other specified B group vitamins; R20.2 Paresthesia of skin
CPT/HCPCS: 36415; 80048; 82306; 82607; 82746; 85027; 86038; 86039; 86200; 86225; 86617; 86618

== ENCOUNTER 2022-03-17 10:00 | Outpatient (RCR) | payer BC, SELFPAY ==
--- NOTE | 2022-02-20 10:47 | MHC.PT.EP ---
[facility] [place] Office [place] Office [place] Office [address] Abena Lainez [address] [phone] F: [phone] F: [phone] F: [phone] F: [phone] Physical Therapy Plan of Care Date of Evaluation: Date of Surgery: n/a Diagnosis: pain in R leg, pain in L leg Assessment: Patient is a 21 year old female presenting to PT with complaints of pain in her B legs but more specifically her entire body R>L. Pt reports onset of pain began July 2021 due to insidious onset. She presents today with impairments in pain, LE strength, balance, reports of N+T. Pt's current occupation is at [employer], with baseline physical activities including work, ADLs, stair negotiation, ambulating. Pt expresses retirement goal of reducing pain/sx, and is motivated to work towards this in PT. Clinical presentation today is somewhat unclear as she is presenting with whole body sx and is pending further work up by a neurologist and scale agent however at this time pt will benefit from skilled PT to address the following problems and impairments noted upon evaluation: pain, LE strength, balance, reports of N+T. These problems limit the patient with the following functional activities: ambulating, stair negotiation, ADLs, work. The prescribed treatment plan of care is medically necessary. Co-morbidities of none were identified and taken into considerations of plan of care. Pt was educated on HEP, role of PT, prognosis, POC. Frequency and Duration: The patient will be seen 2 x week x 4 weeks Short Term Goals: Pt will demonstrate improved hip MMT to at least 4+/5 in 2 weeks for improved lumbopelvic stability. Pt will demonstrate ability to SLS on foam with min ankle or hip strategy for improved balance in 2 weeks. Residential Goals: Pt will demonstrate improved LEFI score by 9 points in 4 weeks for improved functional mobility. Pt will demonstrate improved ability to negotiate stairs with min to no pain/feelings of weakness in 4 weeks for improved access to her home. Pt will demonstrate ability to complete ADLs and work with less reports of fatigue in 4 weeks for return to PLOF. Treatment Plan: Modalities to reduce pain, spasms and effusion. Manual therapy to restore motion and function. Therapeutic exercise to improve strength and flexibility. Neuromuscular re-education for posture and balance. Therapeutic activities to return to functional activities of daily living. Electronically signed by: Dasia Joaquin, PT, DPT, ATC Please sign and return to therapist. Thank you for your referral.
--- NOTE | 2022-04-20 15:57 | MHC.PT.DC ---
[facility] [place] Office [place] Office [place] Office [address]z [address] [phone] F: [phone] F: [phone] F: [phone] F: [phone] Physical Therapy Discharge Report Diagnosis: pain in R leg, pain in L leg Date of Surgery: n/a Date of Evaluation: 02/20/22 Date of Discharge: 04/20/22 Treatments to Date: 6 Cancellations to Date: 2 No Shows to Date: 1 Discharge Status: Visit Non-compliance Discharge Summary: Pt has not returned to skilled PT in >30 days. Pt status unknown at this time and to be d/c per policy. Electronically signed by: Dasia Joaquin, PT, DPT, ATC Please sign and return to therapist. Thank you for your referral.
== END 2022-04-20 15:57 | disposition home or self-care (01) ==
LOC: HO.PTCHIC 10:00
PROVIDERS: PCP Physician Assistant; Visit Provider Physician Assistant
DX: M79.604 Pain in right leg (principal); M79.605 Pain in left leg
CPT/HCPCS: 97110; 97162

== ENCOUNTER 2022-03-31 08:26 | Outpatient (REF) | payer BC, SELFPAY ==
--- NOTE | ~2022-03-31 | MR_ITS ---
EXAMINATION: MR BRAIN WITHOUT CONTRAST CLINICAL INFORMATION: Ocular pain. Paresthesias. COMPARISON: None. TECHNIQUE: Multiplanar, multisequence imaging of the brain was performed without contrast. FINDINGS: No diffusion abnormalities are identified to suggest an acute infarct. The ventricles are normal in size. No mass effect or midline shift is seen. No brain parenchymal signal abnormality is noted. No extra-axial fluid collections are seen. The brainstem and cerebellum are normal. 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 The gradient refocused acquisition demonstrates no pathologic magnetic susceptibility artifact to indicate underlying acute or chronic blood products. The craniovertebral junction, marrow signal, and midline structures are normal. The major intracranial flow voids at the level of the [place] are preserved. The dural venous sinus flow voids are maintained. The mastoid air cells and paranasal sinuses are well aerated. 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 Otherwise, relatively normal MRI of the brain.
== END 2022-03-31 08:27 | disposition home or self-care (01) ==
LOC: HO.MRI 08:26
PROVIDERS: Visit Provider Psychiatry & Neurology Neurology
DX: H57.10 Ocular pain, unspecified eye (principal); R20.0 Anesthesia of skin; R20.2 Paresthesia of skin
CPT/HCPCS: 70551

== ENCOUNTER → 2022-05-12 07:59 | Outpatient (BNVA) | payer BC, SELFPAY | PROVIDERS: PCP Physician Assistant; Visit Provider Internal Medicine Endocrinology, Diabetes & Metabolism | DX: E23.6 Other disorders of pituitary gland (principal) ==

== ENCOUNTER 2022-05-12 09:03 | Outpatient (REF) | payer BC, SELFPAY ==
[2022-05-12 11:47] LABS: Osmolality Urine 778 mosm/kg (373-1093)
[2022-05-12 12:07] LABS: Anion Gap 12 (12-20); Blood Urea Nitrogen 8 mg/dL (9-16); Calcium 9.6 mg/dL (8.4-10.2); Carbon Dioxide 26 mmol/L (22-29); Chloride 106 mmol/L (96-108); Estimated Glomerular Filt Rate > 60; Glucose Random 86 mg/dL (60-115); Potassium 4.2 mmol/L (3.3-5.1); Sodium 140 mmol/L (135-145)
[2022-05-12 12:11] LABS: Free T4 (Free Thyroxine) 0.91 ng/dL (0.71-1.85); Thyroid Stimulating Hormone 1.42 uIU/mL (0.32-4.0)
[2022-05-12 12:47] LABS: Cortisol Random 18.2 ug/dL
[2022-05-13 22:20] LABS: Prolactin 14.4 ng/mL
== END 2022-05-12 09:04 | disposition home or self-care (01) ==
LOC: HO.10HDL 09:03
PROVIDERS: Visit Provider Internal Medicine Endocrinology, Diabetes & Metabolism
DX: E23.6 Other disorders of pituitary gland (principal)
CPT/HCPCS: 36415; 80048; 82533; 83935; 84146; 84439; 84443

== ENCOUNTER 2022-10-01 07:21 | Emergency (ER) | payer BC, SELFPAY ==
--- NOTE | ~2022-10-01 | US_ITS ---
EXAMINATION: US PELVIS CLINICAL INFORMATION: Pelvic pain COMPARISON: CT abdomen pelvis 04/21/2021, pelvic ultrasound 05/29/2019 TECHNIQUE: Ultrasound of the pelvis is performed using both transabdominal and transvaginal transducers along with Doppler. Transvaginal imaging is performed due to inadequate visualization transabdominally. FINDINGS: Uterus: The uterus is anteverted and measures 6.4 x 3.6 x 4.1 cm. The double wall endometrial thickness is 0.5 mm. The uterus is smooth in contour and has normal myometrial echogenicity. No visible fibroid. Nabothian cysts are present in the cervix. Adnexa: Both ovaries are visualized. There is normal color flow to the adnexa. There is no ovarian torsion. There is no pelvic ascites or fluid collection. Right ovary measures 2.8 x 3.0 x 2.9 cm for a volume of 17.3 mL and includes a 2.7 x 2.7 x 2.4 cm isoechoic lesion possibly an endometrioma or a hemorrhagic cyst. Left ovary measures 3.6 x 2.8 x 2.5 cm for a volume of 13.2 mL which includes a avascular slightly hypoechoic lesion measuring 1.7 x 1.3 x 1.6 cm, also possibly a complex cyst or endometrioma There is normal arterial flow and venous flow in both ovaries. US/US pelvic ovarian doppler IMPRESSION: 1. No evidence of ovarian torsion. 2. Bilateral ovarian lesions as described above. These could represent hemorrhagic cysts or endometriomas. These are new findings when compared to 05/29/2019. Follow-up transabdominal and endovaginal study in 3 months is recommended.
--- NOTE | ~2022-10-01 | US_ITS ---
EXAMINATION: US PELVIS CLINICAL INFORMATION: Pelvic pain COMPARISON: CT abdomen pelvis 04/21/2021, pelvic ultrasound 05/29/2019 TECHNIQUE: Ultrasound of the pelvis is performed using both transabdominal and transvaginal transducers along with Doppler. Transvaginal imaging is performed due to inadequate visualization transabdominally. FINDINGS: Uterus: The uterus is anteverted and measures 6.4 x 3.6 x 4.1 cm. The double wall endometrial thickness is 0.5 mm. The uterus is smooth in contour and has normal myometrial echogenicity. No visible fibroid. Nabothian cysts are present in the cervix. Adnexa: Both ovaries are visualized. There is normal color flow to the adnexa. There is no ovarian torsion. There is no pelvic ascites or fluid collection. Right ovary measures 2.8 x 3.0 x 2.9 cm for a volume of 17.3 mL and includes a 2.7 x 2.7 x 2.4 cm isoechoic lesion possibly an endometrioma or a hemorrhagic cyst. Left ovary measures 3.6 x 2.8 x 2.5 cm for a volume of 13.2 mL which includes a avascular slightly hypoechoic lesion measuring 1.7 x 1.3 x 1.6 cm, also possibly a complex cyst or endometrioma There is normal arterial flow and venous flow in both ovaries. US/US pelvic and transvaginal IMPRESSION: 1. No evidence of ovarian torsion. 2. Bilateral ovarian lesions as described above. These could represent hemorrhagic cysts or endometriomas. These are new findings when compared to 05/29/2019. Follow-up transabdominal and endovaginal study in 3 months is recommended.
[2022-10-01 07:25] VITALS: BP 126/76; PULSE 80; RESP 16; TEMP 36.7; O2SAT 100; BMI 20.1
--- NOTE | 2022-10-01 08:10 | ED_ITS ---
HPI - Female Genitourinary General Chief complaint: Urogenital-Female Stated complaint: Abdominal Pain Time Seen by Provider: 10/01/22 07:32 Source: patient and family (Mother) Mode of arrival: ambulatory History of Present Illness HPI Narrative: 22-year-old female who presents with chronic, ongoing lower abdominal pelvic pain, last period was 2 days ago, this is not been associated with fever, chills but is been associated with nausea and difficulty urinating/defecating. Patient states she is not sexually active at this time. Related Data Home Medications Medication Instructions Recorded Confirmed meloxicam 15 mg tablet 15 mg PO DAILY 03/20/22 05/07/22 Previous Rx's Medication Instructions Recorded ondansetron 4 mg disintegrating 4 mg PO QID PRN nausea and 06/16/21 tablet vomiting #14 tabs promethazine 12.5 mg tablet 12.5 mg PO BEDTIME PRN nausea and 10/06/21 vomiting 30 days #30 tabs gabapentin 100 mg capsule See Rx Instructions PO BEDTIME #90 03/20/22 caps Allergies Allergy/AdvReac Type Severity Reaction Status Date / Time seasonal Allergy Unknown sneezing, Uncoded 05/07/22 16:38 stuffy nose Review of Systems Review of Systems: Pertinent positives and negatives as stated in HPI PMFSH Past Medical History Source: nursing notes reviewed Medical History Anxiety GERD (gastroesophageal reflux disease) Headache Nausea Surgical History History of placement of ear tubes Family History Family History Father Heart problem Osteoarthritis Mother Mood disorder Depression Chronic mental illness Maternal Grandmother Lymphoma History of breast cancer Social History Social History Household Members: Family Household Members Other:: Mother Housing: Apartment Alcohol intake: never Patient Tobacco Use Status: Never used Tobacco e-Cigarette/Vaping Use: Never Used Second Hand Smoke Exposure: No Substance Use Type: Marijuana Advance Directives: No Advance Directives Information Provided: No service: No 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al status: student 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 GENERAL: Well developed, thin, in moderate painful distress. HEAD: Normocephalic/atraumatic EYES: PERRLA, EOMI EARS: Ext canals without abnormality NOSE: Nares patent bilateral OROPHARYNX: no oral lesions noted, posterior pharynx clear NECK: Supple, no adenopathy LUNGS: Normal breath sounds. No adventitious sounds or accessory muscle use. SpO2<100> CARDIOVASCULAR: Regular rate and rhythm without noted murmurs ABDOMEN: Soft, tenderness in the suprapubic, non-distended with bowel sounds. MUSCULOSKELETAL: No tenderness, deformities, or effusions noted on gross inspection. EXTREMITIES: No cyanosis, clubbing or edema. SKIN: Inspection of the skin reveals no rashes NEUROLOGIC: Alert and oriented x 4. Strength and sensation to light touch were grossly intact x 4. Medications Administered Generic Name Dose Route Start Last Admin Trade Name Freq PRN Reason Stop Dose Admin Sodium Chloride 1,000 mls @ 999 mls/hr 10/01/22 15:00 10/01/22 15:06 Ns IV 10/01/22 16:00 999 mls/hr .Q1H1M MITZY Administration Discontinued Medications Generic Name Dose Route Start Last Admin Trade Name Freq PRN Reason Stop Dose Admin Sodium Chloride 1,000 mls @ 999 mls/hr 10/01/22 08:15 10/01/22 10:39 Ns IV 10/01/22 09:15 Infused .Q1H1M MITZY Infusion Potassium Chloride 10 meq in 100 mls @ 100 mls/hr 10/01/22 11:45 10/01/22 15:05 Potassium Chloride/H20 IV 10/01/22 13:44 100 mls/hr Q1H MITZY Administration Ketorolac Tromethamine 15 mg 10/01/22 08:09 10/01/22 09:05 Ketorolac Tromethamine 30 Mg/Ml Vial IVPUSH 10/01/22 08:10 15 mg ONCE ONE Administration Ondansetron HCl 4 mg 10/01/22 15:00 10/01/22 15:06 Ondansetron Hcl 4 Mg/2 Ml Vial IVPUSH 10/01/22 15:01 4 mg ONCE ONE Administration Potassium Chloride 60 meq 10/01/22 11:42 10/01/22 12:19 Potassium Chloride Er 20 Meq Tab.Er.Prt PO 10/01/22 11:43 60 meq ONCE ONE Administration Medical Decision Making Medical Decision Making [facility] Narrative: 0815: 22-year-old female with history and clinical presentation after review of prior documentation and problem list, my suspicion is that patient may have underlying endometriosis or interstitial cystitis but will rule out more concerning diagnoses such as ectopic/torsions/PID/UTI/renal colic. Low clinical suspicion for appendicitis/diverticulitis. - Labs, IVF, Toradol - Pelvic US 22-year-old female after review of all investigations my interpretation is that patient has any eating disorder there is led to her dehydration and hypokalemia, she is noted to have bilateral ovarian cysts for which she was encouraged to follow-up as an outpatient with her auto damage adjuster. I did reach out to the care team who provided additional information an outpatient resources for eating disorders and this was provided to the patient and her mother. She is hemodynamically stable, rehydrated in stable for discharge to home. Differential Diagnosis Please see the discussion above Lab Data Please see the discussion above 10/01/22 09:08 10/01/22 09:08 Labs: Lab Results 10/01/22 10/01/22 10/01/22 Range/Units 09:08 09:08 09:08 WBC 9.6 (4.8-10.8) X10*3/uL RBC 4.20 (4.20-5.50) X10*6/uL Hgb 13.0 (12.0-16.0) g/dl Hct 37.9 (37.0-47.0) % MCV 90.2 (80.0-98.0) fL MCH 31.0 (27.0-33.0) pg MCHC 34.3 (31.0-35.0) g/dl RDW 12.7 (11.0-16.0) % Plt Count 349 (160-400) X10*3/uL MPV 9.3 L (9.4-12.3) fL Immature Gran % (Auto) 0.6 H (0.0-0.4) % Neut % (Auto) 78.3 H (45-73) % Lymph % (Auto) 14.1 L (20-40) % [place] % (Auto) 6.0 (2-11) % Eos % (Auto) 0.5 (0-4) % Baso % (Auto) 0.5 (0-2) % Lymph # (Auto) 1.4 (1.2-4.9) X10*3/uL [place] # (Auto) 0.6 (0.1-1.2) X10*3/uL Eos # (Auto) 0.1 (0.0-0.4) X10*3/uL Baso # (Auto) 0.1 (0.0-0.2) X10*3/uL Abs Immat Gran (auto) 0.06 H (0.00-0.03) X10*3/uL Absolute Neuts (auto) 7.5 (2.0-8.3) x10*3/uL Absolute Nucleated RBC 0.000 (0.0-0.012) X10*3/uL Nucleated RBC % (auto) 0.0 (0.0-0.2) /100WBC Sodium 137 (135-145) mmol/L Potassium 2.7 L D (3.3-5.1) mmol/L Chloride 106 (96-108) mmol/L Carbon Dioxide 18 L (22-29) mmol/L Anion Gap 16 (12-20) BUN 10 (9-16) mg/dL Creatinine 0.69 (0.5-1.4) mg/dL Estim Creat Clear Calc 100.7 Estimated GFR > 60 Random Glucose 136 H (60-115) mg/dL Calcium 9.5 (8.4-10.2) mg/dL Magnesium 1.7 (1.6-2.6) mg/dL Total Bilirubin 1.1 H (0.0-1.0) mg/dL AST 14 (5-31) U/L ALT 8 (0-31) U/L Alkaline Phosphatase 54 (39-117) U/L Total Protein 7.2 (6.5-8.0) g/dL Albumin 4.3 (3.5-5.0) g/dL Beta HCG, Quant mIU/mL Urine Color Urine Appearance Urine pH (5.0-9.0) Ur Specific [place] (1.005-1.025) Urine Protein (Neg-Trace) mg/dL Urine Glucose (UA) (Negative) mg/dL Urine Ketones (Negative) mg/dL Urine Blood (Negative) Urine Nitrite (Negative) Ur Leukocyte Esterase (Negative) Urine Test (NEGATIVE) Chlam trachomat DNA PCR NOT DETECTED (Not Detect.) N.gonorrhoeae DNA (PCR) NOT DETECTED (Not Detect.) 10/01/22 10/01/22 10/01/22 Range/Units 09:08 09:09 09:09 WBC (4.8-10.8) X10*3/uL RBC (4.20-5.50) X10*6/uL Hgb (12.0-16.0) g/dl Hct (37.0-47.0) % MCV (80.0-98.0) fL MCH (27.0-33.0) pg MCHC (31.0-35.0) g/dl RDW (11.0-16.0) % Plt Count (160-400) X10*3/uL MPV (9.4-12.3) fL Immature Gran % (Auto) (0.0-0.4) % Neut % (Auto) (45-73) % Lymph % (Auto) (20-40) % [place] % (Auto) (2-11) % Eos % (Auto) (0-4) % Baso % (Auto) (0-2) % Lymph # (Auto) (1.2-4.9) X10*3/uL [place] # (Auto) (0.1-1.2) X10*3/uL Eos # (Auto) (0.0-0.4) X10*3/uL Baso # (Auto) (0.0-0.2) X10*3/uL Abs Immat Gran (auto) (0.00-0.03) X10*3/uL Absolute Neuts (auto) (2.0-8.3) x10*3/uL Absolute Nucleated RBC (0.0-0.012) X10*3/uL Nucleated RBC % (auto) (0.0-0.2) /100WBC Sodium (135-145) mmol/L Potassium (3.3-5.1) mmol/L Chloride (96-108) mmol/L Carbon Dioxide (22-29) mmol/L Anion Gap (12-20) BUN (9-16) mg/dL Creatinine (0.5-1.4) mg/dL Estim Creat Clear Calc Estimated GFR Random Glucose (60-115) mg/dL Calcium (8.4-10.2) mg/dL Magnesium (1.6-2.6) mg/dL Total Bilirubin (0.0-1.0) mg/dL AST (5-31) U/L ALT (0-31) U/L Alkaline Phosphatase (39-117) U/L Total Protein (6.5-8.0) g/dL Albumin (3.5-5.0) g/dL Beta HCG, Quant < 2 mIU/mL Urine Color Yellow Urine Appearance Turbid Urine pH 8.0 (5.0-9.0) Ur Specific [place] 1.020 (1.005-1.025) Urine Protein Negative (Neg-Trace) mg/dL Urine Glucose (UA) Negative (Negative) mg/dL Urine Ketones >=160 (Negative) mg/dL Urine Blood Negative (Negative) Urine Nitrite Negative (Negative) Ur Leukocyte Esterase Negative (Negative) Urine Test NEGATIVE (NEGATIVE) Chlam trachomat DNA PCR (Not Detect.) N.gonorrhoeae DNA (PCR) (Not Detect.) 10/01/22 Range/Units 15:12 WBC (4.8-10.8) X10*3/uL RBC (4.20-5.50) X10*6/uL Hgb (12.0-16.0) g/dl Hct (37.0-47.0) % MCV (80.0-98.0) fL MCH (27.0-33.0) pg MCHC (31.0-35.0) g/dl RDW (11.0-16.0) % Plt Count (160-400) X10*3/uL MPV (9.4-12.3) fL Immature Gran % (Auto) (0.0-0.4) % Neut % (Auto) (45-73) % Lymph % (Auto) (20-40) % [place] % (Auto) (2-11) % Eos % (Auto) (0-4) % Baso % (Auto) (0-2) % Lymph # (Auto) (1.2-4.9) X10*3/uL [place] # (Auto) (0.1-1.2) X10*3/uL Eos # (Auto) (0.0-0.4) X10*3/uL Baso # (Auto) (0.0-0.2) X10*3/uL Abs Immat Gran (auto) (0.00-0.03) X10*3/uL Absolute Neuts (auto) (2.0-8.3) x10*3/uL Absolute Nucleated RBC (0.0-0.012) X10*3/uL Nucleated RBC % (auto) (0.0-0.2) /100WBC Sodium 138 (135-145) mmol/L Potassium 3.6 D (3.3-5.1) mmol/L Chloride 113 H (96-108) mmol/L Carbon Dioxide 19 L (22-29) mmol/L Anion Gap 10 L (12-20) BUN 8 L (9-16) mg/dL Creatinine 0.54 (0.5-1.4) mg/dL Estim Creat Clear Calc 128.7 Estimated GFR > 60 Random Glucose 90 (60-115) mg/dL Calcium 8.3 L D (8.4-10.2) mg/dL Magnesium (1.6-2.6) mg/dL Total Bilirubin (0.0-1.0) mg/dL AST (5-31) U/L ALT (0-31) U/L Alkaline Phosphatase (39-117) U/L Total Protein (6.5-8.0) g/dL Albumin (3.5-5.0) g/dL Beta HCG, Quant mIU/mL Urine Color Urine Appearance Urine pH (5.0-9.0) Ur Specific [place] (1.005-1.025) Urine Protein (Neg-Trace) mg/dL Urine Glucose (UA) (Negative) mg/dL Urine Ketones (Negative) mg/dL Urine Blood (Negative) Urine Nitrite (Negative) Ur Leukocyte Esterase (Negative) Urine Test (NEGATIVE) Chlam trachomat DNA PCR (Not Detect.) N.gonorrhoeae DNA (PCR) (Not Detect.) Independent Interpretation I performed an independent interpretation of an: EKG Interpretation: Normal sinus rhythm, HR -68, no STEMI, NV/QRS/QTC is within normal limits. Radiology Impression Radiologist Impression: My interpretation is in agreement with radiology's impression. External Record Review External record reviewed: Outpatient record and Prior outpatient labs Discharge Plan Discharge Clinical Impression: Eating disorder, Dehydration, Hypokalemia, Ovarian cyst, bilateral Patient Disposition: Home, Self-Care Instructions: Ovarian Cyst (ED), Dehydration (ED), Potassium Content of Foods List (ED), Hypokalemia (ED), Cognitive Behavioral Therapy (ED) Additional Instructions: 1. Eating disorder: Please follow-up with the outpatient resources that you have been provided with. 2. Ovarian Cysts: Please follow-up with your auto damage adjuster for re-evaluation and further outpatient management. Return to the ER for any worsening symptoms. Prescriptions: No Action ondansetron 4 mg tablet,disintegrating 4 mg PO QID PRN (Reason: nausea and vomiting) Qty: 14 0RF promethazine 12.5 mg tablet 12.5 mg PO BEDTIME MDD 1 PRN (Reason: nausea and vomiting) 30 Days Qty: 30 3RF Rx Instructions: Take one tablet by mouth once a day at bedtime as needed for nausea meloxicam 15 mg tablet 15 mg PO DAILY gabapentin 100 mg capsule See Rx Instructions PO BEDTIME Qty: 90 3RF Rx Instructions: 1-3 caps orally bedtime; Referrals: Derek Dia PA-C [Primary Care Provider] -
[2022-10-01] MEDS: Ketorolac Tromethamine 30 MG/ML VIAL 15 MG IVPUSH (09:05)
[2022-10-01] MEDS: 0.9 % Sodium Chloride 1,000 ML 999 ML IV ×2 (09:06→15:06)
[2022-10-01 09:19] LABS: MANUAL DIFF FLAG NO
[2022-10-01 09:20] LABS: Basophils Absolute Auto 0.1 X10*3/uL (0.0-0.2); Basophils Percent Auto 0.5 % (0-2); Eosinophils Absolute Auto 0.1 X10*3/uL (0.0-0.4); Eosinophils Percent Auto 0.5 % (0-4); Hematocrit 37.9 % (37.0-47.0); Imm Gran Abs Auto 0.06 X10*3/uL (0.00-0.03); Imm Gran Pct Auto 0.6 % (0.0-0.4); Lymphocytes Absolute Auto 1.4 X10*3/uL (1.2-4.9); Lymphocytes Percent Auto 14.1 % (20-40); Mean Corpuscular HGB Conc 34.3 g/dl (31.0-35.0); Mean Corpuscular Volume 90.2 fL (80.0-98.0); Mean Platelet Volume 9.3 fL (9.4-12.3); Monocytes Absolute Auto 0.6 X10*3/uL (0.1-1.2); Neutrophils Absolute Auto 7.5 x10*3/uL (2.0-8.3); Neutrophils Percent Auto 78.3 % (45-73); Platelet Count 349 X10*3/uL (160-400); Red Cell Distribution Width 12.7 % (11.0-16.0); White Blood Count 9.6 X10*3/uL (4.8-10.8)
[2022-10-01 09:21] LABS: Appearance Urine Turbid; Color Urine Yellow; Glucose Urine UA Negative (Negative); Leukocyte Esterase Urine Negative (Negative); Nitrite Urine Negative (Negative); Urine Blood Negative (Negative); Urine Ketones >=160 mg/dL (Negative); Urine Protein Negative (Neg-Trace)
--- NOTE | 2022-10-01 09:21 | PC.NURSE ---
20g iv inserted in LAC, pt c/o 8/ abd pain, both pain med and iv fluid given as ordered. pt taken to ultra sound. mom at bedside.
[2022-10-01 09:24] LABS: UPreg QC Valid YES; Urine Pregnancy NEGATIVE (NEGATIVE)
[2022-10-01 09:36] LABS: Alanine Aminotransferase 8 U/L (0-31); Albumin Level 4.3 g/dL (3.5-5.0); Alkaline Phosphatase 54 U/L (39-117); Anion Gap 16 (12-20); Aspartate Amino Transferase 14 U/L (5-31); Bilirubin Total 1.1 mg/dL (0.0-1.0); Blood Urea Nitrogen 10 mg/dL (9-16); Calcium 9.5 mg/dL (8.4-10.2); Carbon Dioxide 18 mmol/L (22-29); Chloride 106 mmol/L (96-108); Creatinine Clr Calc Pharmacy 100.7; Estimated Glomerular Filt Rate > 60; Glucose Random 136 mg/dL (60-115); Potassium 2.7 mmol/L (3.3-5.1); Sodium 137 mmol/L (135-145); Total Protein 7.2 g/dL (6.5-8.0)
[2022-10-01 09:47] LABS: HCG Quantitative < 2 mIU/mL
--- NOTE | 2022-10-01 09:54 | ECG_ITS ---
Test Reason : HYPOKALEMIA Blood Pressure : / mmHG Vent. Rate : 068 BPM Atrial Rate : 068 BPM P-R Int : 196 ms QRS Dur : 068 ms QT Int : 386 ms P-R-T Axes : 047 045 005 degrees QTc Int : 410 ms Normal sinus rhythm Normal ECG When compared with ECG of 23-OCT-2019 22:30, No significant change was found Referred By: Silke Verdugo Electronically Signed By:NABIL LIANG
[2022-10-01 11:00] LABS: CT PCR NOT DETECTED (Not Detect.); NG PCR NOT DETECTED (Not Detect.)
[2022-10-01 11:27] LABS: Magnesium 1.7 mg/dL (1.6-2.6)
[2022-10-01] MEDS: Potassium Chloride ER 20 MEQ TAB.ER.PRT 60 MEQ PO (12:19)
[2022-10-01] MEDS: Potassium Chloride/H20 10 MEQ/100 ML PIGGYBACK 100 MEQ IV ×2 (12:33→15:05)
--- NOTE | 2022-10-01 12:44 | PC.NURSE ---
pt's mother reported bright red blood after pt tried to have a bm. this rn noted 3 spots of bright red blood observed in the toilet. pt reports that she feels like she has to have a bm but nothing comes out when she goes to the toilet. PO Magnesium and iv Magnesium given as ordered. pt continues to report nausea/continues to spit up, small amount of bile observed, Dr. Verdugo aware. will continue to observe. mother at bedside.
--- NOTE | 2022-10-01 13:41 | P.CONOB_ITS ---
ACCOUNT SERVICES MANAGER - CN: HPI Data of Consult Consult date: 10/01/22 Primary Care Provider: Derek Dia PA-C Consult Narrative Narrative: I was consulted Ashley Wick who is a 22 year old female 22-year-old female presented to the emergency roon with chronic, ongoing lower abdominal pelvic pain, last menstrual period was 2 days ago no associated fever, chills. The workup in the emergency room include the following CBC, chemistry, hCG less than 2, urine all negative, GC/CT negative and a pelvic ultrasound cc:: CC: OB [facility] Past Medical History Medical History Anxiety GERD (gastroesophageal reflux disease) Headache Nausea Family History Family History Father Heart problem Osteoarthritis Mother Mood disorder Depression Chronic mental illness Maternal Grandmother Lymphoma History of breast cancer Surgical History Surgical History History of placement of ear tubes Social History Social History Household Members: Family Household Members Other:: Mother Housing: Apartment Alcohol intake: never Patient Tobacco Use Status: Never used Tobacco e-Cigarette/Vaping Use: Never Used Second Hand Smoke Exposure: No Substance Use Type: Marijuana Advance Directives: No Advance Directives Information Provided: No service: No 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al status: student 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- [employer] Cognitive needs: No Hearing needs: No Vision needs: Yes (Glasses) Meds Allergies Allergy/AdvReac Type Severity Reaction Status Date / Time seasonal Allergy Unknown sneezing, Uncoded 05/07/22 16:38 stuffy nose Active Medications: Current Medications Potassium Chloride (Potassium Chloride/H20) 10 meq in 100 mls @ 100 mls/hr IV Q1H MITZY Stop: 10/01/22 13:44 Last Admin: 10/01/22 12:33 Dose: 100 mls/hr Home Medications Medication Instructions Recorded Confirmed Last Taken Type meloxicam 15 mg tablet 15 mg PO DAILY 03/20/22 05/07/22 Unknown History ACCOUNT SERVICES MANAGER Physical Exam Vitals Vital signs: Temp Pulse Resp BP Pulse Ox O2 Del Method 98.1 F 80 16 126/76 100 Room Air 10/01/22 07:25 10/01/22 07:25 10/01/22 07:25 10/01/22 07:25 10/01/22 07:25 10/01/22 07:25 BMI result Body Mass Index 20.1 Additional Comments: Reported by Dr. Verdugo as benign abdominal exam ACCOUNT SERVICES MANAGER - Results Labs 10/01/22 09:08 10/01/22 09:08 Labs: Short CBC 10/01/22 Range/Units 09:08 WBC 9.6 (4.8-10.8) X10*3/uL Hgb 13.0 (12.0-16.0) g/dl Hct 37.9 (37.0-47.0) % Plt Count 349 (160-400) X10*3/uL BMP 10/01/22 09:08 Sodium 137 Potassium 2.7 L D Chloride 106 Carbon Dioxide 18 L BUN 10 Creatinine 0.69 Calcium 9.5 Liver Function 10/01/22 Range/Units 09:08 Total Bilirubin 1.1 H (0.0-1.0) mg/dL AST 14 (5-31) U/L ALT 8 (0-31) U/L Alkaline Phosphatase 54 (39-117) U/L Albumin 4.3 (3.5-5.0) g/dL Urine 10/01/22 10/01/22 Range/Units 09:09 09:09 Urine Color Yellow Urine Appearance Turbid Urine pH 8.0 (5.0-9.0) Ur Specific [place] 1.020 (1.005-1.025) Urine Protein Negative (Neg-Trace) mg/dL Urine Glucose (UA) Negative (Negative) mg/dL Urine Test NEGATIVE (NEGATIVE) Imaging US - abdomen: Radiologist's impression: ITS Impressions Doppler Study Ultrasound 10/01/22 10:42 IMPRESSION: 1. No evidence of ovarian torsion. 2. Bilateral ovarian lesions as described above. These could represent hemorrhagic cysts or endometriomas. These are new findings when compared to 05/29/2019. Follow-up transabdominal and endovaginal study in 3 months is recommended. Pelvic/Transvag US 10/01/22 10:42 IMPRESSION: 1. No evidence of ovarian torsion. 2. Bilateral ovarian lesions as described above. These could represent hemorrhagic cysts or endometriomas. These are new findings when compared to 05/29/2019. Follow-up transabdominal and endovaginal study in 3 months is recommended. Assessment and Plan (1) Complex cyst of both ovaries: Status: Acute Plan Discussed with Dr. Verdugo the differential diagnosis of the complex ovarian cyst by ultrasound, the main limitation of transvaginal ultrasonography alone as a diagnostic tool to distinguish benign from malignant masses relates to its lac k of specificity and low positive predictive value for cancer. The differential diagnosis discussed includes the following but not limited to: benign and malignant gynecological and non-gynecological causes. Recommended close outpatient follow-up and Instructions to be given the patient to come back to emergency room in case of worsening pelvic pain, fever above 100.4, nausea or vomiting or heavy vaginal bleeding. All questions were answered & the patient verbalized understanding and agreed with the plan. I spent a total of 20 minutes reviewing the chart, communicating with the emergency room provider and documenting in the medical record Time Spent With Patient Time: Total time managing care of this patient today ____ minutes.
[2022-10-01 14:21] VITALS: BP 121/79; PULSE 62; RESP 17; TEMP 36.6; O2SAT 100
[2022-10-01] MEDS: ondansetron HCL 4 MG/2 ML VIAL IVPUSH (15:06)
[2022-10-01 15:36] LABS: Anion Gap 10 (12-20); Blood Urea Nitrogen 8 mg/dL (9-16); Calcium 8.3 mg/dL (8.4-10.2); Carbon Dioxide 19 mmol/L (22-29); Chloride 113 mmol/L (96-108); Creatinine Clr Calc Pharmacy 128.7; Estimated Glomerular Filt Rate > 60; Glucose Random 90 mg/dL (60-115); Potassium 3.6 mmol/L (3.3-5.1); Sodium 138 mmol/L (135-145)
--- NOTE | 2022-10-01 15:57 | PC.NURSE ---
pt seen by Dr. Verdugo. second bag of magnesium started, fluid infusing. pt resting quietly, no apparent distress. mother at bedside
--- NOTE | 2022-10-01 16:14 | PC.NURSE ---
pt cleared for discharge. discharge instructions reviewed with pt and mother at her bedside. fluids ended, iv removed. family members present at the time of discharge
== END 2022-10-01 16:21 | disposition home or self-care (01) ==
PROVIDERS: Emergency Provider Student in an Organized Health Care Education/Training Program; PCP Physician Assistant
DX: N83.202 Unspecified ovarian cyst, left side (principal); N83.201 Unspecified ovarian cyst, right side; F50.9 Eating disorder, unspecified; Z68.20 Body mass index [BMI] 20.0-20.9, adult; E86.0 Dehydration; E87.6 Hypokalemia; R10.2 Pelvic and perineal pain
CPT/HCPCS: 0353U; 36415; 76830; 76856; 80048; 80053; 81003; 81025; 83735; 84702; 85025; 93005; 93975; 96361; 96365; 96366; 96375; 99284; J1885; J2405

== ENCOUNTER 2023-11-04 14:35 | Outpatient (AMB) | payer OTHER, SELFPAY ==
--- NOTE | 2023-11-04 14:37 | MHC.PC.OV ---
Vital Signs 11/04/23 14:38 Height 5 ft 2 in Weight 122 lb 4 oz BMI 22.4 BP 128/82 Blood Pressure Location Lt brachial Position Sitting Pulse 72 Pulse Source Pulse Oximeter Pulse Oximetry (%) 100 Oxygen Delivery Method Room Air Intake Visit Reasons: Pain/discomfort under left rib Maintenance Groundskeeper Required: No Accompanied by: Self / Same As Patient Allergies seasonal Allergy (Unknown, Uncoded 11/04/23 14:46) sneezing, stuffy nose Medication List - Last Reconciled 11/04/23 by Derek Dia PA-C gabapentin 1-3 caps orally bedtime; meloxicam 15 mg PO DAILY ondansetron 4 mg PO QID PRN promethazine 12.5 mg PO BEDTIME PRN 30 days MDD 1 Tobacco use date assessed: 05/07/22 HPI Pain/discomfort under left rib HPI Details Patient is a 23-year-old female here today for problem visit. Patient has a past medical history significant for depression, insomnia, GERD and chronic abdominal pain. Patient reports Over last few moths having pain and discomfort under her left rib. She reports when she wears a tight fitting bra and presses on her left rib area it causes her a lot of discomfort. Has been having to wear more overlying bras. Otherwise denies any, shortness of breath or pleuritic type pain. She also is interested in seeing an endometriosis specialist as she has been having chronic abdominal and pelvic plain for many years now and believes she has the diagnosis of endometriosis. She has spoken with her tile layer helper about her symptoms as well and has been offered control. [facility] Medical History Anxiety GERD (gastroesophageal reflux disease) Nausea Headache Surgical History History of placement of ear tubes Family History Father Heart problem Osteoarthritis Mother Mood disorder Depression Chronic mental illness Maternal Grandmother Lymphoma History of breast cancer Social History Household Members: Family Household Members Other:: Mother Housing: Apartment Alcohol intake: never Patient Tobacco Use Status: Never used Tobacco e-Cigarette/Vaping Use: Never Used Second Hand Smoke Exposure: No Substance Use Type: Marijuana service: No 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al status: student 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 1. Little interest or pleasure in doing things: not at all 2. Feeling down, depressed, or hopeless: not at all 3. Trouble falling or staying asleep, or sleeping too much: not at all 4. Feeling tired or having little energy: not at all 5. Poor appetite or overeating: not at all 6. Feeling bad about yourself - or that you are a failure or have let yourself or your family down: not at all 7. Trouble concentrating on things, such as reading the newspaper or watching television: not at all 8. Moving or speaking so slowly that other people could have noticed. Or the opposite - being so fidgety or restless that you have been moving around a lot more than usual: not at all 9. Thoughts that you would be better off or of hurting yourself in some way: not at all Total score: 0 Depression Screening Interpretation: Negative Depression Screening Done: Yes 32583 - PHQ-9 Billing: Yes Source: Developed by Drs. Emmanuel Shea, Natalie Brown, Jey Diez and colleagues, with an educational marilee from [employer]. Thrive Questionnaire Date Thrive assessed: 11/04/23 I am a: Patient What is your living situation today?: I have a steady place to live Within the past 12 months, did the food you bought not last and you didn't have the money to get more?: Never true Within the past 12 months, did you worry whether your food would run out before you got money to buy more?: Never true Do you have trouble paying for medicines?: No Do you have trouble getting transportation to medical appointments?: No Do you have trouble paying your heating and electricity bill?: No Do you have trouble taking care of your child, family member or friend?: No Do you have trouble with day-to-day activities such as bathing, preparing meals, shopping, managing finances, etc.?: No Are you currently unemployed and looking for a job?: No Are you interested in more education?: No Please select the resources that you would like help with: None Currently or been in a relationship where the following occur: No concerns reported THRIVE Score: 0 AUDIT C Alcohol Use Questionnaire (AUDIT-C) 1. How often do you have a drink containing alcohol?: Never 3. How often do you have six or more drinks on one occasion?: Never Total Score: 0 CISCO-7 AMB Questionnaire CISCO-7 Date CISCO - 7 assessed: 11/04/23 Feeling nervous, anxious, or on edge: 0 = Not at all Not being able to stop or control worryin = Not at all Worrying too much about different things: 0 = Not at all Trouble relaxin = Not at all Being so restless that it is hard to sit still: 0 = Not at all Becoming easily annoyed or irritable: 0 = Not at all Feeling afraid as if something awful might happen: 0 = Not at all Total CISCO-7 score (0-4 normal; 5-9 mild; 10-14 moderate; 15-21 severe): 0 Source: Developed by Drs. Emmanuel Shea, Natalie Brown, Jey Diez and colleagues, with an educational marilee from [employer]. CISCO-7 Assessment Billing CISCO-7 Assessment Tool: CISCO-7 Assessment 64790 Review of Systems Const Denies headache(s) Eyes Denies loss of vision ENT Denies vertigo, Denies dizziness, Denies headache(s) and Denies sore throat Card Denies chest pain, Denies leg edema and Denies lightheadedness Resp Denies cough, Denies hemoptysis and Denies wheezing GI Reports abdominal pain, Denies melena, Denies constipation, Denies diarrhea and Denies vomiting Denies urinary frequency, Denies dysuria and Denies urinary urgency Musc Reports back pain, Denies arthralgias, Denies joint swelling, Denies numbness and Denies tingling Neuro Denies Abnormal speech present, Denies behavioral changes, Denies vertigo, Denies dizziness, Denies headache(s), Denies loss of vision, Denies memory loss, Denies numbness and Denies tingling Psych Denies anxiety, Denies behavioral changes, Denies depression, Denies memory loss and Denies panic attacks Jaspreet/Lymph Denies easy bleeding and Denies easy bruising Aller/Immun Denies wheezing Physical exam (Primary Care) Vital Signs: Last Vital Signs Pulse 72 11/04/23 14:38 BP 128/82 11/04/23 14:38 Pulse Ox 100 11/04/23 14:38 Oxygen Delivery Method Room Air 11/04/23 14:38 BMI result Body Mass Index 22.4 Tobacco/Smoking Status: Tobacco use Status Tobacco use date assessed 05/07/22 11/04/23 14:39 Patient Tobacco Use Status Never used Tobacco 11/04/23 14:39 e-Cigarette/Vaping Use Never Used 11/04/23 14:39 PHQ-9: PHQ-9 Score PHQ-9: Total score 0 11/04/23 14:45 Depression Screening Interpretation: Negative Thrive Assessment: Date of Thrive Assessment Date Thrive assessed 11/04/23 11/04/23 14:41 Currently or been in a relationship where the following occur: No concerns reported Const General: healthy appearing, no acute distress, alert and awake Nutritional Appearance: well nourished Orientation/consciousness: oriented to person, oriented to place and oriented to time HENMT Ears: TM's normal bilaterally General nose exam: Normal nasal mucous membranes and turbinates present Eyes Conjunctivae: conjunctivae normal Sclerae: sclerae normal Pupils: Equal, round and reactive pupils present Neck Neck: Yes no lymphadenopathy and Yes no JVD Thyroid: Thyroid normal Carotids: no bruits Resp Effort & Inspection: normal respiratory effort and not tachypneic Auscultation: no crackles, no rales, no rhonchi and no wheezes Cardio Rate: regular rate Rhythm: regular rhythm Heart sounds: no murmurs and normal S1 and S2 GI Palpation (GI): Soft to palpation, nontender, no hepatomegaly and no splenomegaly Auscultation: normal bowel sounds Skin General skin exam: no rashes or lesions noted and dry skin Neuro General: oriented to person, oriented to place and oriented to time Cranial nerves: Yes Equal, round and reactive pupils present Speech: No Abnormal speech present Gait exam (Neuro): Normal gait present Motor exam (neuro): no tremor noted Extrem Right upper extremity: full ROM Left upper extremity: full ROM Right lower extremity: full ROM; no edema Left lower extremity: full ROM; no edema Psych Mental Status: mental status grossly normal Speech and movement: Normal speech and movement present Affect: normal affect Attitude: cooperative Thought process: Normal thought process present Assessment and Plan Assessment & Plan (1) Rib pain on left side: Code(s): R07.81 - Pleurodynia Plan: Reports chronic left rib pain. She reports the pain is worse when she has a broad that is pressing on that area. Had to wear more overlying bras. Will send for x-ray of the left ribs to evaluate for any bone lesion. (2) Chronic pelvic pain in female: Code(s): R10.2 - Pelvic and perineal pain; G89.29 - Other chronic pain Plan: Patient has been dealing with chronic pelvic pain, dysmenorrhea, pain with sexual activity and GI symptoms for many years now believes she has endometriosis. She would like to see specialist in [facility] (Dr. Marte) at [facility] (3) Screening for diabetes mellitus (DM): Code(s): Z13.1 - Encounter for screening for diabetes mellitus (4) Thoracic spine pain: Code(s): M54.6 - Pain in thoracic spine Plan: Will likely benefit from physical therapy Orders: Orders XR ribs LT 2V Today R07.81 - Pleurodynia Complete Blood Count no Diff Today K21.9 - Gastro-esophageal reflux disease without esophagitis Comprehensive Seth. Panel Fast Today Z13.1 - Encounter for screening for diabetes mellitus PT Evaluation and Treatment Today M54.6 - Pain in thoracic spine Referrals SENIOR APPLICATIONS ENGINEER Referral G89.29 - Other chronic pain, R10.2 - Pelvic and perineal pain Coding Level of Care Code Est Pt Level 4 (97521) Diagnoses Rib pain on left side R07.81 Chronic pelvic pain in female R10.2; G89.29 Screening for diabetes mellitus (DM) Z13.1 Thoracic spine pain M54.6 Additional Codes CISCO-7 Assessment Billing - CISCO-7 Assessment Tool: CISCO-7 Assessment 06055 ([id number])
[2023-11-04 14:38] VITALS: BP 128/82; PULSE 72; O2SAT 100; BMI 22.4
== END 2023-11-04 14:59 | disposition home or self-care (01) ==
PROVIDERS: PCP Physician Assistant; Visit Provider Physician Assistant
DX: R07.81 Pleurodynia (principal); R10.2 Pelvic and perineal pain; G89.29 Other chronic pain; Z13.1 Encounter for screening for diabetes mellitus; M54.6 Pain in thoracic spine
CPT/HCPCS: 99214

== ENCOUNTER 2024-01-06 08:46 | Outpatient (AMB) | payer OTHER, SELFPAY ==
--- NOTE | 2024-01-06 08:53 | A.OFFPC_ITS ---
Vital Signs 01/06/24 08:54 Height 5 ft 2 in Weight 120 lb 6 oz BMI 22.0 BP 100/62 Blood Pressure Location Lt brachial Position Sitting Pulse 71 Pulse Source Pulse Oximeter Pulse Oximetry (%) 99 Oxygen Delivery Method Room Air Intake Visit Reasons: PE Intake Note: Patient is here today for a physical. Bowl Attendant Required: No Global Supply Chain Director: Not Required per policy Accompanied by: Self / Same As Patient Allergies seasonal Allergy (Unknown, Uncoded 01/06/24 09:32) sneezing, stuffy nose Medication List - Last Reconciled 01/06/24 by Derek Dia PA-C desogestrel-ethinyl estradiol 0.15-0.03 mg (Apri) 1 tab PO DAILY Tobacco use date assessed: 01/06/24 Dental Screening Dental Screen Date: 01/06/24 Did you have a dental visit in the last 12 months?: No Did you have a dental problem in the last 6 months where you did not have access to dental care?: No Was dental information given to patient?: No HPI PE HPI Details Patient is a 23-year-old female here today for an annual physical. Patient has a past medical history significant for depression, insomnia, GERD and chronic cyclic abdominal pain--> ? Endometriosis. Patient reports concerns today. She also is interested in seeing an endometriosis specialist as she has been having chronic abdominal and pelvic plain for many years now and believes she has the diagnosis of endometriosis. She has spoken with her certified performance technologist about her symptoms as well and has been offered control. 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 Medical History (Updated 01/10/24 @ 07:35 by Derek Dia PA-C) Rathke's cleft cyst Anxiety GERD (gastroesophageal reflux disease) Nausea Headache Surgical History History of placement of ear tubes Family History Father Heart problem Osteoarthritis Mother Mood disorder Depression Chronic mental illness Maternal Grandmother Lymphoma History of breast cancer Other Substance use disorder Social History (Updated 01/06/24 @ 09:36 by Derek South, PA-C) Household Members: Family Household Members Other:: Mother Housing: Apartment Alcohol intake: never Patient Tobacco Use Status: Never used Tobacco e-Cigarette/Vaping Use: Never Used Second Hand Smoke Exposure: No Substance Use Type: Marijuana service: No 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al status: employed 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 1. Little interest or pleasure in doing things: not at all 2. Feeling down, depressed, or hopeless: several days 3. Trouble falling or staying asleep, or sleeping too much: not at all 4. Feeling tired or having little energy: several days 5. Poor appetite or overeating: several days 6. Feeling bad about yourself - or that you are a failure or have let yourself or your family down: not at all 7. Trouble concentrating on things, such as reading the newspaper or watching television: not at all 8. Moving or speaking so slowly that other people could have noticed. Or the opposite - being so fidgety or restless that you have been moving around a lot more than usual: not at all 9. Thoughts that you would be better off or of hurting yourself in some way: not at all Total score: 3 Depression Screening Interpretation: Positive Depression Screening Follow-up: Existing condition Depression Screening Done: Yes 92459 - PHQ-9 Billing: Yes Source: Developed by Drs. Emmanuel Shea, Natalie Brown, Jey Diez and colleagues, with an educational marilee from [employer]. Thrive Questionnaire Date Thrive assessed: 01/06/24 I am a: Patient What is your living situation today?: I have a steady place to live Within the past 12 months, did the food you bought not last and you didn't have the money to get more?: Never true Within the past 12 months, did you worry whether your food would run out before you got money to buy more?: Never true Do you have trouble paying for medicines?: No Do you have trouble getting transportation to medical appointments?: No Do you have trouble paying your heating and electricity bill?: No Do you have trouble taking care of your child, family member or friend?: No Do you have trouble with day-to-day activities such as bathing, preparing meals, shopping, managing finances, etc.?: No Are you currently unemployed and looking for a job?: No Are you interested in more education?: I choose not to answer this question Please select the resources that you would like help with: None Currently or been in a relationship where the following occur: No concerns reported THRIVE Score: 0 AUDIT C Alcohol Use Questionnaire (AUDIT-C) 1. How often do you have a drink containing alcohol?: Never Total Score: 0 CISCO-7 AMB Questionnaire CISCO-7 Date CISCO - 7 assessed: 01/06/24 Feeling nervous, anxious, or on edge: 0 = Not at all Not being able to stop or control worryin = Not at all Worrying too much about different things: 1 = Several days Trouble relaxin = Not at all Being so restless that it is hard to sit still: 0 = Not at all Becoming easily annoyed or irritable: 0 = Not at all Feeling afraid as if something awful might happen: 0 = Not at all Total CISCO-7 score (0-4 normal; 5-9 mild; 10-14 moderate; 15-21 severe): 1 Source: Developed by Drs. Emmanuel Shea, Natalie Brown, Jey Diez and colleagues, with an educational marilee from [employer]. CISCO-7 Assessment Billing CISCO-7 Assessment Tool: CISCO-7 Assessment 63414 Review of Systems Const Denies body aches, Denies chills, Denies excessive sweating, Denies fatigue, Denies fever(s) and Denies headache(s) Eyes Denies blurry vision ENT Denies dysphagia, Denies vertigo, Denies dizziness, Denies headache(s), Denies hearing loss and Denies tinnitus Card Denies chest pain, Denies chest pain with activity, Denies syncope, Denies irregular heart rhythm and Denies dyspnea Resp Denies chest congestion, Denies cough, Denies hemoptysis, Denies dyspnea and Denies wheezing GI Denies abdominal pain, Denies melena, Denies hematochezia, Denies coffee ground emesis, Denies dysphagia, Denies diarrhea, Denies nausea and Denies vomiting Denies urinary frequency, Denies dysuria, Denies urinary hesitancy and Denies urinary urgency Musc Denies arthralgias, Denies limited range of motion, Denies muscle cramps and Denies muscle weakness Skin/Breast Denies rash and Denies skin ulcer Neuro Denies Abnormal speech present, Denies confusion, Denies vertigo, Denies dizziness, Denies syncope, Denies headache(s), Denies memory loss and Denies seizure-like activity Psych Denies anxiety, Denies confusion, Denies depression, Denies memory loss, Denies panic attacks and Denies paranoia Endo Denies excessive sweating, Denies fatigue, Denies flushing, Denies polydipsia and Denies polyuria Aller/Immun Denies wheezing Physical exam (Primary Care) Vital Signs: Last Vital Signs Pulse 71 01/06/24 08:54 BP 100/62 01/06/24 08:54 Pulse Ox 99 01/06/24 08:54 Oxygen Delivery Method Room Air 01/06/24 08:54 BMI result Body Mass Index 22.0 Tobacco/Smoking Status: Tobacco use Status Tobacco use date assessed 01/06/24 01/06/24 08:59 Patient Tobacco Use Status Never used Tobacco 01/06/24 09:36 e-Cigarette/Vaping Use Never Used 01/06/24 09:36 PHQ-9: PHQ-9 Score PHQ-9: Total score 3 01/06/24 09:40 Depression Screening Interpretation: Positive Depression Screening Follow-up: Existing condition Thrive Assessment: Date of Thrive Assessment Date Thrive assessed 01/06/24 01/06/24 08:59 Currently or been in a relationship where the following occur: No concerns reported Const General: cooperative, comfortable, no acute distress, alert and awake; No confusion Orientation/consciousness: oriented to person, oriented to place, patient oriented x3 and No confusion HENMT Head: Yes normocephalic Ears: external ears normal and TM's normal bilaterally Face and sinus: No sinus tenderness Mouth: Normal oral and palatal mucosa present and tongue normal Teeth and gingiva: dentition normal and gingiva normal Throat: Yes posterior oropharynx normal, Yes tonsils normal and Yes uvula midline Eyes Conjunctivae: conjunctivae normal Sclerae: sclerae normal Pupils: Equal, round and reactive pupils present EOM: EOMs intact bilaterally Direct Ophthalmoscopy: No no photophobia Neck Neck: Yes no lymphadenopathy, No tender and Yes no JVD Thyroid: Thyroid normal Carotids: no bruits Chest Chest palpation & inspection: no tenderness Resp Effort & Inspection: normal respiratory effort, no audible wheezes, not labored and no stridor Auscultation: no crackles, no rales, no rhonchi and no wheezes Cardio Jugular venous distension: no JVD Rate: regular rate, not bradycardic and not tachycardic Rhythm: regular rhythm Bruits: no carotid bruits Peripheral pulses: Peripheral pulses 2+ throughout GI Inspection: Yes normal to inspection, No abdominal wall ecchymosis and No visible herniation Palpation (GI): Soft to palpation, nontender, no guarding, not rigid and No hepatosplenomegaly present Auscultation: normoactive bowel sounds General: Yes no CVA tenderness Back/Spine/Pelvis Back: no CVA tenderness and No back tenderness Cervical Spine: cervical ROM normal Thoracic/Lumbar Spine: thoracic and lumbar spine normal to inspection, straight leg raise negative bilaterally, No thoraco-lumbar ROM limited and No lumbar spinal tenderness Skin Lesions: no lesions Rashes: no rashes Wounds: no wounds Neuro General: oriented to person, oriented to place, patient oriented x3, CN's II-XI intact bilaterally and No confusion Cranial nerves: Yes Equal, round and reactive pupils present and Yes Normal accommodation reflex present Cognition (Neuro): normal cognition Speech: No Abnormal speech present Gait exam (Neuro): Normal gait present Motor exam (neuro): 5/5 motor strength present throughout Extrem Right upper extremity: full ROM; no cyanosis Left upper extremity: full ROM; no cyanosis Right lower extremity: no edema Left lower extremity: no edema Psych Appearance: grossly normal Mental Status: mental status grossly normal Affect: normal affect Attitude: cooperative Thought process: Normal thought process present Assessment and Plan Assessment & Plan (1) Annual physical exam: Code(s): Z00.00 - Encounter for general adult medical examination without abnormal findings (2) Chronic pelvic pain in female: Code(s): R10.2 - Pelvic and perineal pain; G89.29 - Other chronic pain Plan: Patient has been dealing with chronic pelvic pain, dysmenorrhea, pain with sexual activity and GI symptoms for many years now believes she has endometriosis. She has not found an endometriosis specialist that will take her insurance. She is continuing to do research to find a provider. Coding Level of Care Code Est Pt Prev Care 18-39y(54370) Diagnoses Annual physical exam Z00.00 Chronic pelvic pain in female R10.2; G89.29 Additional Codes CISCO-7 Assessment Billing - CISCO-7 Assessment Tool: CISCO-7 Assessment 78740 ([id number])
[2024-01-06 08:54] VITALS: BP 100/62; PULSE 71; O2SAT 99; BMI 22.0
== END 2024-01-06 09:43 | disposition home or self-care (01) ==
PROVIDERS: PCP Physician Assistant; Visit Provider Physician Assistant
DX: Z00.00 Encounter for general adult medical examination without abnormal findings (principal); R10.2 Pelvic and perineal pain; G89.29 Other chronic pain

== ENCOUNTER → 2024-01-06 08:46 | Outpatient (BNVA) | payer OTHER, SELFPAY | PROVIDERS: PCP Physician Assistant; Visit Provider Physician Assistant | DX: Z00.01 Encounter for general adult medical examination with abnormal findings (principal); R10.2 Pelvic and perineal pain; G89.29 Other chronic pain | CPT/HCPCS: 96127; 99395 ==

== ENCOUNTER 2024-01-10 15:02 | Outpatient (REF) | payer OTHER, SELFPAY ==
--- NOTE | ~2024-01-10 | XR_ITS ---
EXAMINATION: XR RIBS, LEFT CLINICAL INFORMATION: R07.81 - Pleurodynia COMPARISON: None available. TECHNIQUE: PA view of the chest, and 3 views left RIBS. FINDINGS: Lungs are clear. No consolidation, pneumothorax, or pleural effusion. The cardiomediastinal silhouette and pulmonary vasculature are normal. Osseous structures are unremarkable. Ribs are intact. No fractures are identified. XR/XR ribs LT min 3V w CXR1V IMPRESSION: 1. Lungs are clear. Cardiomediastinal silhouette is normal. 2. No definite left rib fracture appreciated. Cannot exclude costochondral injury. Electronically signed by: Emmanuel Huang MD 03/19/2024 03:38 PM EST
== END 2024-01-10 15:03 | disposition home or self-care (01) ==
LOC: HO.XRAY 15:02
PROVIDERS: PCP Physician Assistant; Visit Provider Physician Assistant
DX: R07.81 Pleurodynia (principal)
CPT/HCPCS: 71101

== ENCOUNTER → 2024-01-10 15:04 | Outpatient (BNV) | payer OTHER, SELFPAY | PROVIDERS: PCP Physician Assistant; Visit Provider Radiology Diagnostic Radiology | DX: R07.81 Pleurodynia (principal) | CPT/HCPCS: 71101 ==

== ENCOUNTER 2024-01-17 15:00 | Outpatient (RCR) | payer OTHER, SELFPAY ==
--- NOTE | 2023-12-31 16:10 | MHC.PT.EP ---
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 PRESENTS TO PT WITH L RIB AREA PAIN, SOME DECREASED TRUNK ROM. GOOD OVERALL CERVICAL AND SHOULDER ROM WITH SOME DECREASE IN UPPER BODY STRENGTH. Pt WITH POOR POSTURE AND RIB ASYMMETRY (BUT NO SCOLIOSIS) NOTED (AWAITING XRAY REPORT). SHOULD BENEFIT FROM PT TO ADDRESS THESE ISSUES WITH STRETCH/STRENGTHENING PROGRAM Frequency and Duration: The patient will be seen 1X/WK X 6 WKS Short Term Goals: 1. INCREAESE POSTURE AWARENESS AND AWARENESS UPPER BODY CARE 2. 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 I HEP WITH DC EX PROGRAM 2. DECREASED UPPER BODY PAIN AT LEAST 50% WITH ADLS Treatment Plan: Modalities to reduce pain, spasms and effusion. Manual therapy to restore motion and function. Therapeutic exercise to improve strength and flexibility. Neuromuscular re-education for posture and balance. Therapeutic activities to return to functional activities of daily living. Electronically signed by: RICHARD TINAJERO PT Please sign and return to therapist. Thank you for your referral.
--- NOTE | 2024-02-11 09:48 | MHC.PT.DC ---
[facility] Office [place] Office [place] Office [address] Abena Lainez [address] [phone] F: [phone] F: [phone] F: [phone] F: [phone] Physical Therapy Discharge Report Diagnosis: THORACIC SPINE PAIN Date of Surgery: NA Date of Evaluation: 12/31/23 Date of Discharge: 02/11/24 Treatments to Date: 3 Cancellations to Date: No Shows to Date: Discharge Status: Patient Elected to Stop Discharge Summary: PER ASSESSMENT AT LAST VISIT (01/16) BY STACY SANTOS PT,DPT Continued thoracic mobility exercises without increase in symptoms. STM performed with some muscular restrictions throughout left lumbar PS. Progressed periscapular stabilization with addition of wall clocks. Continue to progress per pt tolerance Pt THEN CANCELLED NEXT 2 VISIT WITHOUT FURTHER VISITS SCHEDULED Electronically signed by: RICHARD TINAJERO PT Please sign and return to therapist. Thank you for your referral.
== END 2024-02-11 09:54 | disposition home or self-care (01) ==
LOC: HO.PT 15:00
PROVIDERS: PCP Physician Assistant; Visit Provider Physician Assistant
DX: M54.6 Pain in thoracic spine (principal)
CPT/HCPCS: 97110; 97161; 97535

== ENCOUNTER 2024-05-19 07:40 | Outpatient (REF) | payer OTHER, SELFPAY ==
--- OUTSIDE RECORDS SUMMARY | 2024-05-19 07:42 | XMS_ITS | Clinical Summary ---
Author Organization [facility] ity Address [address] [place] [address] Care Team Providers Care Truck Service Manager Name Role Phone Derek Dia Primary Care Provider Allergies No known active allergies Medications Medication Sig Dispensed Refills Start Date End Date Status desogestreL-ethinyl estradioL (Apri) 0.15-0.03 mg per tablet Take 1 Tablet by mouth daily. 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 Surgical History Surgery Date Site/Laterality Comments OTHER SURGICAL HISTORY Bilateral PROCEDURE: HISTORY OTHER; COMMENT: ear tubes Family History Medical History Relation Name Comments Breast cancer Maternal Grandmother Lymphoma Maternal Grandmother Other: HIV/AIDS Maternal Grandmother Cancer of Small Bowel Neg Hx Colon cancer Neg Hx Kidney cancer Neg Hx Ovarian cancer Neg Hx Pancreatic cancer Neg Hx Uterine cancer Neg Hx Relation Name Status Comments Maternal Grandmother Social History Tobacco Use Types Packs/Day Years Used Date Smoking Tobacco: Never Smokeless Tobacco: Never Sex and Gender Information Value Date Recorded Sex Assigned at Not on file Gender Identity Not on file Sexual Orientation Not on file Obstetrics History Last Filed Vital Signs Vital Sign Reading Time Taken Comments Blood Pressure - - Pulse 88 10/07/2023 2:09 PM EDT Temperature - - Respiratory Rate - - Oxygen Saturation - - Inhaled Oxygen Concentration - - Weight 54.9 kg (121 lb) 10/07/2023 2:09 PM EDT Height 157.5 cm (5' 2 ) 10/07/2023 2:09 PM EDT Body Mass Index 22.13 10/07/2023 2:09 PM EDT Plan of Treatment Upcoming Encounters Date Type Department Care Team (Late st Contact Info) Description 07/18/2024 3:00 PM EDT Office Visit Orthopedic Surgery [facility] [address] [facility] [address] [place] [phone] William Atkins, DPM [address] [facility] [address] [place] [address] Health Maintenance Due Date Last Done Comments Gonorrhea/Chlamydia Screening 2000 HPV Vaccines (1 - 3-dose series) 2015 DTaP,Tdap,and Td Vaccines (1 - Tdap) 2019 Hepatitis B Vaccines (1 of 3 - 19+ 3-dose series) 2019 Cervical Cancer Screening: P ap Smear 2021 COVID-19 Vaccine (1 - 2023-2 5 season) 2023 Influenza Vaccine (#1) 2023 Depression Screening 01/25/2024 HIV Screening 01/25/2024 Hepatitis C Screening 01/25/2024 Social Influencers of Health Screening 01/25/2024 HIB Vaccines Aged Out No longer eligi ble based on patient's age to complete this topic Hepatitis A Vaccines Aged Out No long er eligible based on patient's age to complete this topic IPV Vaccines Aged Out No longer eligi ble based on patient's age to complete this topic MMR Vaccines Aged Out No longer eligi ble based on patient's age to complete this topic Meningococcal ACWY Vaccine Aged Out N o longer eligible based on patient's age to complete this topic Pneumococcal Vaccine: Pediat rics (0 to 5 Years) and At-Risk Patients (6 to 64 Years) Aged Out No longer eligible b ased on patient's age to complete this topic RSV Immunization Patients Un duane 20 months Aged Out No longer eligible b ased on patient's age to complete this topic Varicella Vaccines Aged Out No longer eligible based on patient's age to complete this topic Care Teams Truck Service Manager Relationship Specialty Start Date End Date Derek Dia PA [address] [place] [phone] PCP - General 09/22/23
[2024-05-19 08:23] LABS: Hematocrit 37.9 % (37.0-47.0); Hemoglobin 13.1 g/dl (12.0-16.0); Mean Corpuscular HGB Conc 34.6 g/dl (31.0-35.0); Mean Corpuscular Hemoglobin 31.2 pg (27.0-33.0); Mean Corpuscular Volume 90.2 fL (80.0-98.0); Mean Platelet Volume 9.9 fL (9.4-12.3); Platelet Count 311 X10*3/uL (160-400); Red Cell Distribution Width 12.8 % (11.0-16.0); White Blood Count 6.3 X10*3/uL (4.8-10.8)
[2024-05-19 08:30] LABS: Estimated Average Glucose 103 mg/dL; Hemoglobin A1c % 5.2 % (<6.0); Total Hemoglobin (HGBA1C) 3434.4052 umol/L
[2024-05-19 08:48] LABS: Appearance Urine Clear; Color Urine Yellow; Glucose Urine UA Negative (Negative); Leukocyte Esterase Urine Negative (Negative); Nitrite Urine Negative (Negative); Urine Blood Negative (Negative); Urine Ketones Negative (Negative); Urine Protein Negative (Neg-Trace)
[2024-05-19 08:58] LABS: Alanine Aminotransferase 29 U/L (0-31); Albumin Level 4.4 g/dL (3.5-5.0); Alkaline Phosphatase 56 U/L (39-117); Anion Gap 9 (12-20); Aspartate Amino Transferase 20 U/L (5-31); Bilirubin Total 0.4 mg/dL (0.0-1.0); Blood Urea Nitrogen 5 mg/dL (9-16); Calcium 9.2 mg/dL (8.4-10.2); Carbon Dioxide 24 mmol/L (22-29); Chloride 109 mmol/L (96-108); Estimated Glomerular Filt Rate > 60; Glucose Fasting 98 mg/dL (60-99); Potassium 3.7 mmol/L (3.3-5.1); Sodium 138 mmol/L (135-145); Total Protein 7.3 g/dL (6.5-8.0)
== END 2024-05-19 07:41 | disposition home or self-care (01) ==
LOC: HO.LAB 07:40
PROVIDERS: PCP Physician Assistant; Visit Provider Physician Assistant
DX: R35.0 Frequency of micturition (principal); R73.9 Hyperglycemia, unspecified; R30.0 Dysuria; K21.9 Gastro-esophageal reflux disease without esophagitis; Z13.1 Encounter for screening for diabetes mellitus
CPT/HCPCS: 36415; 80053; 81003; 83036; 85027

== ENCOUNTER 2024-06-09 02:26 | Emergency (ER) | payer OTHER, SELFPAY ==
--- NOTE | ~2024-06-09 | CT_ITS ---
EXAMINATION: CT ABDOMEN AND PELVIS WITH CONTRAST CLINICAL INFORMATION: Lower abdominal pain. COMPARISON: September 19, 2021. TECHNIQUE: Multidetector volumetric images were obtained from the superior aspect of the liver through the pubic symphysis following administration 85 mL of Omnipaque 350 intravenous contrast. Sagittal and coronal reformatted images were obtained on the technologist's workstation. Oral contrast: No This CT examination was performed using dose optimization techniques as appropriate, variously including the following: *Automated exposure control *Adjustment of mA and/or kV according to patient size (this includes techniques or standardized protocols for targeted exams where dose is matched to indication/reason for exam; i.e. extremities or head) *Use of iterative reconstruction technique. DLP: 371 mGy centimeter. FINDINGS: LUNG BASES: No acute airspace disease or discrete pulmonary nodule. LIVER, GALLBLADDER, AND BILIARY TREE: Liver measures 15 cm. No focal mass. There is a 4 mm hypodensity in the posterior right hepatic lobe too small to be fully characterized. Portal veins, hepatic veins and intrahepatic portion of the IVC are patent. No pericholecystic fluid collection or gallbladder wall thickening. Common bile duct measures 3 mm. PANCREAS: No focal lesion. No peripancreatic fluid collection. No main pancreatic ductal dilatation. SPLEEN: 7 cm. No focal lesion. ADRENAL GLANDS: No nodular lesion. KIDNEYS AND URETERS: Normal enhancement pattern of the renal parenchyma. No focal mass. Subcentimeter cyst, left kidney. No hydronephrosis. No gross nephrolithiasis. BLADDER: Fluid-filled. GASTROINTESTINAL TRACT: Stool within the large intestine. No intestinal obstruction pattern. No pneumatosis intestinalis. Appendix is normal. No pericolonic edema pattern. Collapsed appearance of the descending colon and proximal sigmoid colon. ABDOMINAL WALL: Small fat-containing umbilical hernia. LYMPH NODES: No lymphadenopathy, mesenteric or retroperitoneal. VASCULAR: No aneurysm or dissection, abdominal aorta. PELVIC VISCERA: 1.7 cm exophytic sessile pedicle uterine fibroid in the anterior fundus. No masses in the adnexa. OSSEOUS STRUCTURES: No acute fracture or listhesis in the axial skeleton. No gross lytic or blastic lesions. CT/CT abdomen pelvis w IV con IMPRESSION: Collapsed morphology pattern descending colon. No intestinal obstruction pattern. Small tiny fat-containing umbilical hernia. 1.7 cm uterine fibroid. 4 mm cystic lesion, right hepatic lobe. Consider cyst versus hamartoma. Subcentimeter cyst left kidney. Fleischner guidelines were followed. Electronically signed by: Fan Shepherd MD 06/09/2024 08:56 AM JU BREWSTER
[2024-06-09 02:31] VITALS: BP 106/53; PULSE 76; RESP 18; TEMP 36.6; O2SAT 100; BMI 19.4
[2024-06-09 03:53] LABS: Basophils Absolute Auto 0.1 X10*3/uL (0.0-0.2); Basophils Percent Auto 0.7 % (0-2); Eosinophils Absolute Auto 0.1 X10*3/uL (0.0-0.4); Eosinophils Percent Auto 0.6 % (0-4); Hematocrit 39.2 % (37.0-47.0); Imm Gran Abs Auto 0.04 X10*3/uL (0.00-0.03); Imm Gran Pct Auto 0.4 % (0.0-0.4); Lymphocytes Absolute Auto 1.9 X10*3/uL (1.2-4.9); Lymphocytes Percent Auto 17.7 % (20-40); MANUAL DIFF FLAG NO; Mean Corpuscular HGB Conc 35.7 g/dl (31.0-35.0); Mean Corpuscular Hemoglobin 31.7 pg (27.0-33.0); Mean Corpuscular Volume 88.7 fL (80.0-98.0); Mean Platelet Volume 9.2 fL (9.4-12.3); Monocytes Absolute Auto 0.8 X10*3/uL (0.1-1.2); Monocytes Percent Auto 7.6 % (2-11); Neutrophils Absolute Auto 7.8 x10*3/uL (2.0-8.3); Platelet Count 383 X10*3/uL (160-400); Red Blood Count 4.42 X10*6/uL (4.20-5.50); Red Cell Distribution Width 12.7 % (11.0-16.0); White Blood Count 10.7 X10*3/uL (4.8-10.8)
[2024-06-09 03:55] LABS: Appearance Urine Clear; Color Urine Yellow; Glucose Urine UA Negative (Negative); Leukocyte Esterase Urine Negative (Negative); Nitrite Urine Negative (Negative); PH 6.5 (5.0-9.0); Specific Gravity - Urine 1.025 (1.005-1.025); Urine Blood Negative (Negative); Urine Ketones 40 mg/dL (Negative); Urine Protein Trace mg/dL (Neg-Trace)
[2024-06-09 04:01] LABS: UPreg QC Valid YES; Urine Pregnancy NEGATIVE (NEGATIVE)
[2024-06-09 04:05] LABS: Anion Gap 14 (12-20); Blood Urea Nitrogen 11 mg/dL (9-16); Calcium 9.8 mg/dL (8.4-10.2); Carbon Dioxide 21 mmol/L (22-29); Chloride 109 mmol/L (96-108); Creatinine Clr Calc Pharmacy 103.3; Estimated Glomerular Filt Rate > 60; Glucose Random 123 mg/dL (60-115); Potassium 3.6 mmol/L (3.3-5.1); Sodium 140 mmol/L (135-145)
[2024-06-09 04:30] LABS: Influenza A PCR NEGATIVE (Negative); Influenza B PCR NEGATIVE (Negative); Resp Syncy Virus RNA Qual PCR NEGATIVE (Negative); SARS COV2 PCR INHOUSE NEGATIVE (Negative)
--- NOTE | 2024-06-09 05:44 | ED_ITS ---
HPI - Nausea/Vomiting/Diarrhea General Chief complaint: Nausea/Vomiting/Diarrhea Stated complaint: n/v weakness Time Seen by Provider: 06/09/24 05:28 Source: patient and family Mode of arrival: ambulatory Limitations: no limitations History of Present Illness ED Provider: DR. Lundberg HPI Narrative: 24-year-old female with known history of endometriosis and chronic abdominal pain, patient is prone to nausea and vomiting when she has an abdominal pain, presented with nausea, vomiting, abdominal pain x3 days. Patient declined any history of intra-abdominal surgery, last bowel movement was this morning and + passing flatus. Sexually not active, declined any chance of being , no dysuria, no frequency urination, no vaginal discharge. No fever, no chills, no exposure to a sick contacts, no recent travel. Related Data Home Medications ?Medication ?Instructions ?Recorded ?Confirmed desogestrel 0.15 mg-ethinyl 1 tab PO DAILY 01/06/24 01/06/24 estradiol 0.03 mg tablet (Apri) Allergies Allergy/AdvReac Type Severity Reaction Status Date / Time seasonal Allergy Unknown sneezing, Uncoded 06/09/24 02:33 stuffy nose Review of Systems 2 Review of Systems: All other systems are reviewed and are negative Constitutional: Reports as per HPI and Reports no additional constitutional complaints Eyes: Reports as per HPI and Reports no additional eye complaints Reports system reviewed and no additional complaints, except as documented Cardiovascular: Reports as per HPI and Reports no additional cardiovascular complaints Respiratory: Reports as per HPI and Reports no additional respiratory complaints Gastrointestinal: Reports as per HPI and Reports no additional gastrointestinal complaints Genitourinary: Reports no additional female genitourinary complaints Musculoskeletal: Reports no additional musculoskeletal complaints Skin/Breast: Reports system reviewed and no additional complaints, except as docu Psychiatric: Reports no additional psychiatric complaints Endocrine: Reports no additional endocrine complaints Hematologic/Lymphatic: Reports no additional hematologic/lymphatic complaints Allergic/Immunologic: Reports no additional allergic/immunologic complaints Reports system reviewed and no additional complaints, except as documented and Reports Abnormal speech present [facility] Past Medical History Medical History Rathke's cleft cyst Anxiety GERD (gastroesophageal reflux disease) Nausea Headache Surgical History History of placement of ear tubes Family History Family History Father Heart problem Osteoarthritis Mother Mood disorder Depression Chronic mental illness Maternal Grandmother Lymphoma History of breast cancer Other Substance use disorder Social History Social History Household Members: Family Household Members Other:: Mother Housing: Apartment Alcohol intake: never Patient Tobacco Use Status: Never used Tobacco Smoked in Last 30 Days: No e-Cigarette/Vaping Use: Never Used Second Hand Smoke Exposure: No Use of substances other than those prescribed or required for medical reasons: Yes Substance Use Type: Marijuana Advance Directives: No Advance Directives Information Provided: Yes Do you have a plan to hurt others: No Plan Patient : No service: No 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al status: employed 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 Blood pressure elevated. Heart rate normal. Respiratory rate normal. Temperature normal. Oxygen saturation normal. Appearance: Alert. Oriented X3. No acute distress. Head: Normal external exam. Normocephalic. Atraumatic. No Williamson signs noted. No raccoon eyes noted Eyes: PERRLA. EOMI. Conjunctiva and sclera normal. Eyelids normal. ENT: TM's Normal. Pharynx normal. Uvula midline. Moist mucous membranes. No trismus noted. No drooling noted. No muffled voice noted. Neck: Normal inspection. Neck supple. FROM. No adenopathy. Thyroid Normal. No meningeal signs. No neck mass noted. CVS: Normal heart rate and rhythm. Heart sound normal. No murmurs noted. Pulses normal throughout. Respiratory: No respiratory distress. Painless inspiration. Breath sounds normal. No wheezes/rales/rhonchi noted. Chest nontender. No accessory muscle usage noted or decreased air movement noted. Abdomen: Soft and nontender. Bowel sounds normal in all 4 quadrants. No distention noted. No organomegaly noted. No visible injury noted. Back: No CVA tenderness. Full range of motion noted. Skin: Skin warm and dry. Normal skin color. Normal skin turgor. No rashes/lesions/lacerations noted. Extremities: No lower extremity edema. Extremities exhibit normal range of motion. Extremities nontender. Neuro: Oriented X 3. Cranial nerve exam: II-XII are grossly intact No motor deficit. No sensory deficit. Reflexes normal. Course Reevaluation(s) Reevaluation #1: abdominal pain await for CT abdomen and pelvis signed out to Dr. silva Time: 06:49 Medications Administered Discontinued Medications Generic Name Dose Route Start Last Admin Trade Name Freq PRN Reason Stop Dose Admin Famotidine 20 mg 06/09/24 05:39 06/09/24 06:14 Famotidine/Pf 20 Mg/2 Ml Vial IVPUSH 06/09/24 05:40 20 mg ONCE ONE Administration Sodium Chloride 1,000 mls @ 999 mls/hr 06/09/24 05:41 06/09/24 06:11 Ns IV 06/09/24 06:41 999 mls/hr .Q1H1M ONE Administration Ketorolac Tromethamine 15 mg 06/09/24 05:38 06/09/24 06:13 Ketorolac Tromethamine 15 Mg/Ml Vial IVPUSH 06/09/24 05:39 15 mg ONCE ONE Administration Morphine Sulfate 1 mg 06/09/24 05:38 06/09/24 06:18 Morphine Sulfate 2 Mg/Ml Cartridge IVPUSH 06/09/24 05:39 1 mg ONCE ONE Administration Protocol Ondansetron HCl 4 mg 06/09/24 05:39 06/09/24 06:12 Ondansetron Hcl 4 Mg/2 Ml Vial IVPUSH 06/09/24 05:40 4 mg ONCE ONE Administration Medical Decision Making Differential Diagnosis Differential Diagnoses: The differential diagnosis associated with the presentation includes ( , UTI, pyelonephritis, acute diverticulitis, colitis, pancreatitis, acute appendicitis, severe anemia, electrolyte derangement. ) Admission/Observation Consideration of admission/observation: Escalation of care including admission/observation considered Lab Data MDM Lab Attestation statement: I reviewed the patient's lab results. 06/09/24 03:47 06/09/24 03:47 Labs: Lab Results 06/09/24 Range/Units 03:47 WBC 10.7 (4.8-10.8) X10*3/uL RBC 4.42 (4.20-5.50) X10*6/uL Hgb 14.0 (12.0-16.0) g/dl Hct 39.2 (37.0-47.0) % MCV 88.7 (80.0-98.0) fL MCH 31.7 (27.0-33.0) pg MCHC 35.7 H (31.0-35.0) g/dl RDW 12.7 (11.0-16.0) % Plt Count 383 (160-400) X10*3/uL MPV 9.2 L (9.4-12.3) fL Immature Gran % (Auto) 0.4 (0.0-0.4) % Neut % (Auto) 73.0 (45-73) % Lymph % (Auto) 17.7 L (20-40) % [place] % (Auto) 7.6 (2-11) % Eos % (Auto) 0.6 (0-4) % Baso % (Auto) 0.7 (0-2) % Lymph # (Auto) 1.9 (1.2-4.9) X10*3/uL [place] # (Auto) 0.8 (0.1-1.2) X10*3/uL Eos # (Auto) 0.1 (0.0-0.4) X10*3/uL Baso # (Auto) 0.1 (0.0-0.2) X10*3/uL Abs Immat Gran (auto) 0.04 H (0.00-0.03) X10*3/uL Absolute Neuts (auto) 7.8 (2.0-8.3) x10*3/uL Absolute Nucleated RBC 0.000 (0.0-0.012) X10*3/uL Nucleated RBC % (auto) 0.0 (0.0-0.2) /100WBC Sodium 140 (135-145) mmol/L Potassium 3.6 (3.3-5.1) mmol/L Chloride 109 H (96-108) mmol/L Carbon Dioxide 21 L (22-29) mmol/L Anion Gap 14 (12-20) BUN 11 (9-16) mg/dL Creatinine 0.68 (0.5-1.4) mg/dL Estim Creat Clear Calc 103.3 Estimated GFR > 60 Random Glucose 123 H (60-115) mg/dL Calcium 9.8 D (8.4-10.2) mg/dL Urine Color Yellow Urine Appearance Clear Urine pH 6.5 (5.0-9.0) Ur Specific [place] 1.025 (1.005-1.025) Urine Protein Trace (Neg-Trace) mg/dL Urine Glucose (UA) Negative (Negative) mg/dL Urine Ketones 40 (Negative) mg/dL Urine Blood Negative (Negative) Urine Nitrite Negative (Negative) Ur Leukocyte Esterase Negative (Negative) Urine Test NEGATIVE (NEGATIVE) Influenza Type A (PCR) NEGATIVE (Negative) Influenza Type B (PCR) NEGATIVE (Negative) RSV RNA Qual (PCR) NEGATIVE (Negative) SARS-CoV-2 RNA (RT-PCR) NEGATIVE (Negative) Discharge Plan Discharge Clinical Impression: Abdominal pain Patient Disposition: Still a Patient Prescriptions: No Action desogestrel-ethinyl estradiol [Apri] 0.15-0.03 mg tablet 1 tab PO DAILY Print Language: Tamazight
[2024-06-09] MEDS: 0.9 % Sodium Chloride 1,000 ML 999 ML IV (06:11)
[2024-06-09] MEDS: ondansetron HCL 4 MG/2 ML VIAL IVPUSH (06:12)
[2024-06-09] MEDS: Ketorolac Tromethamine 15 MG/ML VIAL IVPUSH (06:13)
[2024-06-09] MEDS: Famotidine/PF 20 MG/2 ML VIAL IVPUSH (06:14)
[2024-06-09 06:16] VITALS: BP 114/73; PULSE 76; RESP 19; TEMP 36.6; O2SAT 100
[2024-06-09] MEDS: Morphine Sulfate 2 MG/ML CARTRIDGE 1 MG IVPUSH (06:18)
--- NOTE | 2024-06-09 07:54 | MHC.EDTECH ---
Patient voided 200ccdak yellow urine
[2024-06-09] MEDS: iohexoL 350 MG/ML 100 ML INFUS..BTL IV (08:44)
[2024-06-09 09:10] VITALS: BP 128/84; PULSE 64; RESP 14; TEMP 36.6; O2SAT 100
[2024-06-09] MEDS: diphenhydrAMINE HCL 50 MG/ML VIAL 12.5 MG IVPUSH (09:14)
[2024-06-09] MEDS: Metoclopramide HCl 10 MG/2 ML VIAL IVPUSH (09:14)
== END 2024-06-09 10:13 | disposition home or self-care (01) ==
PROVIDERS: Emergency Medicine; Emergency Provider Emergency Medicine; PCP Physician Assistant
DX: R11.2 Nausea with vomiting, unspecified (principal); R10.9 Unspecified abdominal pain; Z79.899 Other long term (current) drug therapy; Z03.818 Encounter for observation for suspected exposure to other biological agents ruled out
CPT/HCPCS: 0241U; 36415; 74177; 80048; 81003; 81025; 85025; 96361; 96374; 96375; 99284; 99285; J1200; J1885; J2270; J2405; J2765; Q9967

== ENCOUNTER → 2024-06-09 05:41 | Outpatient (BNV) | payer OTHER, SELFPAY | PROVIDERS: Emergency Provider Emergency Medicine; PCP Physician Assistant; Visit Provider Radiology Diagnostic Radiology | DX: K63.89 Other specified diseases of intestine (principal); K44.9 Diaphragmatic hernia without obstruction or gangrene; N28.1 Cyst of kidney, acquired; D25.2 Subserosal leiomyoma of uterus | CPT/HCPCS: 74177 ==

== ENCOUNTER 2024-06-10 16:52 | Inpatient (IN) | payer OTHER, SELFPAY ==
--- NOTE | ~2024-06-10 | CT_ITS ---
EXAMINATION: CT HEAD WITHOUT CONTRAST CLINICAL INFORMATION: Vertigo/dizziness. History of paresthesias in upper lumbar pain. COMPARISON: None available. TECHNIQUE: Contiguous axial imaging was performed from the skull base to vertex without intravenous administration of contrast. This CT examination was performed using dose optimization techniques as appropriate, variously including the following: *Automated exposure control *Adjustment of mA and/or kV according to patient size (this includes techniques or standardized protocols for targeted exams where dose is matched to indication/reason for exam; i.e. extremities or head) *Use of iterative reconstruction technique DLP: 741 mGy/cm. FINDINGS: There is no acute intra-axial, extra-axial bleed, masses or midline shift. There is no acute infarction evolution. There is no edema. The urena to white matter differentiation is maintained normal. The lateral ventricles are symmetrical in size and configuration without enlargement. Bone windows reveal no calvarial abnormality. CT/CT head/brain wo IV con IMPRESSION: No acute intracranial process seen. Electronically signed by: Andre Mojica MD 06/13/2024 04:20 PM JU
--- NOTE | ~2024-06-10 | MR_ITS ---
CLINICAL HISTORY: intractable vertigo MR brain without gadolinium Comparison: CT same date, MRI 03/31/2022 Findings: Bilateral multifocal areas of white matter signal have developed. Demyelinating disease will need to be considered in this age group. No acute abnormalities on diffusion-weighted imaging. Midline structures are intact and within normal limits. Normal flow voids are noted within the vascular structures. Sinuses and mastoids are clear. Impression: New multifocal white matter signal abnormalities Findings are concerning for demyelinating disease This document has been electronically signed by: Maged Mcneil MD on 06/13/2024 18:18:02
--- NOTE | ~2024-06-10 | MR_ITS ---
EXAMINATION: MR CERVICAL SPINE WITHOUT AND WITH CONTRAST CLINICAL INFORMATION: Persistent vertigo. Concern for multiple sclerosis. COMPARISON: None available. TECHNIQUE: MRI of the cervical spine was obtained using routine sequences with and without contrast. Intravenous contrast: 5 mL of Gadavist was given intravenously FINDINGS: There is maintained cervical lordosis the vertebral heights, alignment and disc heights are normal. There is no disc bulge, herniation or spinal canal stenosis at any of the disc levels. The neural foramina are widely patent. The bone marrow signal is normal. The cord signal, cord caliber and cervical-medullary junction is normal. Post gadolinium there is no abnormal enhancement seen in cervical, upper thoracic cord are cervical medullary junction. MR/MR cervical spine wo/w con IMPRESSION: Unremarkable MRI cervical spine without and with contrast. Electronically signed by: Andre Mojica MD 06/14/2024 01:32 PM JU
--- NOTE | ~2024-06-10 | MR_ITS ---
EXAMINATION: MR BRAIN WITH CONTRAST CLINICAL INFORMATION: Persistent vertigo. Concerning for multiple sclerosis. COMPARISON: Noncontrast MRI brain dated June 13, 2024. TECHNIQUE: Axial T1 postcontrast. Coronal T1 postcontrast. Total IV contrast: (Gadavist) 5.0 mL. No reported immediate complications FINDINGS: Limited by patient's motion artifact. There is a 3 mm intra-axial enhancing signal at the subcortical white matter right middle frontal gyrus. There are 2 linear enhancing lesions in the deep white matter coronary radiata white matter, left frontal/parietal region. Thakur radiata MR/MR head/brain w con IMPRESSION: Supratentorial enhancing lesions. Electronically signed by: Fan Shepherd MD 06/14/2024 01:16 PM [facility]
--- NOTE | ~2024-06-10 | CT_ITS ---
EXAMINATION: CT HEAD WITH/WITHOUT CONTRAST CLINICAL INFORMATION: Vertigo. COMPARISON: June 13, 2024.. Correlated to MRI brain dated June 13, 2024. TECHNIQUE: Contiguous axial imaging was performed from the skull base to vertex before and after the administration of 85 mL of Omnipaque [address] examination was performed using dose optimization techniques as appropriate, variously including the following: *Automated exposure control *Adjustment of mA and/or kV according to patient size (this includes techniques or standardized protocols for targeted exams where dose is matched to indication/reason for exam; i.e. extremities or head) *Use of iterative reconstruction technique. Total DLP: 1450 mGy centimeter. FINDINGS: No acute intracranial hemorrhage, mass effect, midline shift, hydrocephalus or herniation. Tapia-white matter differentiation is normal. There is a 5 mm intrinsic hyperdensity in the sella region. No gross abnormal enhancing lesion within the intra-axial or the extra-axial compartment of the cranium. The visualized arterial and venous system are grossly patent. CT/CT head/brain wo/w IV con IMPRESSION: Demyelinating plaques are not evaluated on this examination. No gross abnormal enhancement. 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 Electronically signed by: Fan Shepherd MD 06/14/2024 12:08 PM [facility]
--- NOTE | ~2024-06-10 | US_ITS ---
CLINICAL HISTORY: abd pain, nausea US abdomen limited Comparison: CT/ID/SR - CT ABDOMEN PELVIS W IV CON - 06/09/24 08:24 EST Findings: Limited exam secondary to technical difficulties, examined early. The visualized pancreas is normal. The aorta and inferior vena cava are normal caliber. The liver is normal in size and echotexture. There is no intrahepatic bile duct dilatation. The common duct is 3 mm in diameter. The gallbladder is normal. There is no sonographic Weiner sign. The main portal vein is antegrade. The right kidney is 10.7 cm in length. No ascites. IMPRESSION: No evidence for cholecystitis, considering limitations. This document has been electronically signed by: Dandre Whiteside MD on 06/11/2024 00:00:34
--- NOTE | ~2024-06-10 | FL_ITS ---
FLUOROSCOPIC LUMBAR PUNCTURE INDICATION: Demyelinating disease on MRI TECHNIQUE: Risks and benefits and possible complications were discussed with the patient and the consent form was signed. Patient was placed prone on the fluoroscopy table. The back was prepped and draped in routine sterile fashion. Betadine was used as a skin antiseptic. Utilizing fluoroscopic guidance, the L3-4 interlaminar space was accessed with a 22 gauge Sixto spinal needle and clear CSF fluid was obtained. Opening pressure was 16 cm H2O in the left lateral decubitus position. 8 cc of fluid was sent for analysis. The needle was removed without immediate complications. Total fluoroscopy time: 0.5 min FL/FL guided lumbar puncture LP IMPRESSION: Successful fluoroscopic guided lumbar puncture at L3-L4. Opening pressure was 16 cm H2O. This procedure was performed by Philipp Gimenez PA-C and supervised by Dr. Huang. Electronically signed by: Emmanuel Huang MD 06/19/2024 04:52 PM EDT
--- NOTE | 2024-06-10 16:53 | ED.NAVMDI ---
HPI - Nausea/Vomiting/Diarrhea General Chief complaint: Nausea/Vomiting/Diarrhea Stated complaint: dehydrated, nausea Time Seen by Provider: 06/10/24 17:13 Source: patient and family Mode of arrival: ambulatory Limitations: no limitations History of Present Illness ED Provider: DR. Lundberg HPI Narrative: 24-year-old female with known history of chronic abdominal pain, as per patient she is prone to have nausea and vomiting with the abdominal pain which thinks secondary to endometriosis however patient has not been formally diagnosed with endometriosis, patient was seen in ED on 06/09/2024 for similar presentation and felt better after was given medications. Patient admitted to smoking marijuana daily. Sexually not active declined any chance of being , no dysuria no frequency urination, no vaginal discharge, no fever, no chills, no exposure to sick contacts, no recent travel. Related Data Home Medications ?Medication ?Instructions ?Recorded ?Confirmed desogestrel 0.15 mg-ethinyl 1 tab PO DAILY 01/06/24 01/06/24 estradiol 0.03 mg tablet (Apri) Previous Rx's ?Medication ?Instructions ?Recorded ondansetron 4 mg disintegrating 4 mg PO Q6H PRN nausea and 06/09/24 tablet vomiting #10 tabs omeprazole 40 mg capsule,delayed 40 mg PO DAILY #14 caps 06/10/24 release ondansetron 4 mg disintegrating 4 mg PO Q8H PRN nausea and 06/10/24 tablet vomiting #7 tabs Allergies Allergy/AdvReac Type Severity Reaction Status Date / Time seasonal Allergy Unknown sneezing, Uncoded 06/10/24 16:58 stuffy nose Review of Systems Review of Systems: All other systems are reviewed and are negative Constitutional: Reports as per HPI and Reports no additional constitutional complaints Eyes: Reports as per HPI and Reports no additional eye complaints Reports system reviewed and no additional complaints, except as documented Cardiovascular: Reports as per HPI and Reports no additional cardiovascular complaints Respiratory: Reports as per HPI and Reports no additional respiratory complaints Gastrointestinal: Reports as per HPI and Reports no additional gastrointestinal complaints Genitourinary: Reports no additional female genitourinary complaints Musculoskeletal: Reports no additional musculoskeletal complaints Skin/Breast: Reports system reviewed and no additional complaints, except as docu Psychiatric: Reports no additional psychiatric complaints Endocrine: Reports no additional endocrine complaints Hematologic/Lymphatic: Reports no additional hematologic/lymphatic complaints Allergic/Immunologic: Reports no additional allergic/immunologic complaints Reports system reviewed and no additional complaints, except as documented and Reports Abnormal speech present [facility] Past Medical History Medical History Rathke's cleft cyst Anxiety GERD (gastroesophageal reflux disease) Nausea Headache Surgical History History of placement of ear tubes Family History Family History Father Heart problem Osteoarthritis Mother Mood disorder Depression Chronic mental illness Maternal Grandmother Lymphoma History of breast cancer Other Substance use disorder Social History Social History Household Members: Family Household Members Other:: Mother Housing: Apartment Alcohol intake: never Patient Tobacco Use Status: Never used Tobacco Smoked in Last 30 Days: No e-Cigarette/Vaping Use: Never Used Second Hand Smoke Exposure: No Use of substances other than those prescribed or required for medical reasons: Yes Substance Use Type: Marijuana Substance Use Frequency: Daily Last Used Substance: Days (ago) Advance Directives: No Advance Directives Information Provided: No service: No 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al status: employed 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 Blood pressure elevated. Heart rate normal. Respiratory rate normal. Temperature normal. Oxygen saturation normal. Appearance: Alert. Oriented X3. No acute distress. Head: Normal external exam. Normocephalic. Atraumatic. No Williamson signs noted. No raccoon eyes noted Eyes: PERRLA. EOMI. Conjunctiva and sclera normal. Eyelids normal. ENT: TM's Normal. Pharynx normal. Uvula midline. Moist mucous membranes. No trismus noted. No drooling noted. No muffled voice noted. Neck: Normal inspection. Neck supple. FROM. No adenopathy. Thyroid Normal. No meningeal signs. No neck mass noted. CVS: Normal heart rate and rhythm. Heart sound normal. No murmurs noted. Pulses normal throughout. Respiratory: No respiratory distress. Painless inspiration. Breath sounds normal. No wheezes/rales/rhonchi noted. Chest nontender. No accessory muscle usage noted or decreased air movement noted. Abdomen: Soft and nontender. Bowel sounds normal in all 4 quadrants. No distention noted. No organomegaly noted. No visible injury noted. Back: No CVA tenderness. Full range of motion noted. Skin: Skin warm and dry. Normal skin color. Normal skin turgor. No rashes/lesions/lacerations noted. Extremities: No lower extremity edema. Extremities exhibit normal range of motion. Extremities nontender. Neuro: Oriented X 3. Cranial nerve exam: II-XII are grossly intact No motor deficit. No sensory deficit. Reflexes normal. Course Course Course Narrative: This is a Rapid Medical Exam performed in triage by Rosy Choi PA-C. Full HPI, ROS and PE to be performed by primary ED provider. 24-year-old female PMHx endometriosis (self reported) and chronic abdominal pain, presenting to the ED c/o intractable N/V & inability to tolerate PO since Wednesday. Was d/c'd from our ED for similar sx on 06/09/24. denies abd pain at present PE: dry heaving during eval, tearful Plan: labs, UA, HARRIS Reevaluation(s) Reevaluation #1: Patient feels better able to tolerate p.o. intake, patient was instructed to stop smoking marijuana. Labs are unremarkable no signs of dehydration or electrolyte derangement. Low bicarb that improved after IV hydration. Start on PPI and follow-up with liquefaction and regasification helper. Time: 20:56 Reevaluation #2: Patient felt better and was able to tolerate p.o. intake while in the ED then shortly after patient started to vomit, patient overall do not feel well. With low bicarb, will continue with IV antiemetic medication on IV fluids will admit to the hospitalist service. Ultrasound of the abdomen showed no acute intra-abdominal pathology. Time: 00:11 Medications Administered Discontinued Medications Generic Name Dose Route Start Last Admin Trade Name All PRN Reason Stop Dose Admin Al Hydroxide/Mg Hydroxide 30 ml 06/10/24 17:26 06/10/24 18:11 Magnesium Hydrox/Alum Hydrox 30 Ml Oral.Susp PO 06/10/24 17:27 30 ml ONCE ONE Administration Droperidol 1.25 mg 06/10/24 22:02 06/10/24 23:19 Droperidol 5 Mg/2 Ml Vial IVPUSH 06/10/24 22:03 1.25 mg ONCE ONE Administration Famotidine 20 mg 06/10/24 17:26 06/10/24 18:11 Famotidine/Pf 20 Mg/2 Ml Vial IVPUSH 06/10/24 17:27 20 mg ONCE ONE Administration Lactated Ringer's 1,000 mls @ 999 mls/hr 06/10/24 17:00 06/10/24 18:11 Lr IV 06/10/24 18:00 Infused .Q1H1M MITZY Infusion Sodium Chloride 1,000 mls @ 999 mls/hr 06/10/24 20:51 06/10/24 22:25 Ns IV 06/10/24 21:51 Infused .Q1H1M ONE Infusion Lactated Ringer's 1,000 mls @ 999 mls/hr 06/10/24 22:45 06/10/24 23:23 Lr IV 06/10/24 23:45 999 mls/hr .Q1H1M MITZY Administration Ketorolac Tromethamine 30 mg 06/10/24 17:26 06/10/24 18:11 Ketorolac Tromethamine 30 Mg/Ml Vial IVPUSH 06/10/24 17:27 30 mg ONCE ONE Administration Lorazepam 0.5 mg 06/10/24 22:04 06/10/24 23:22 Lorazepam 2 Mg/Ml Vial IVPUSH 06/10/24 22:05 0.5 mg ONCE ONE Administration Ondansetron HCl 4 mg 06/10/24 17:26 06/10/24 18:11 Ondansetron Hcl 4 Mg/2 Ml Vial IVPUSH 06/10/24 17:27 4 mg ONCE ONE Administration Prochlorperazine Edisylate 10 mg 06/10/24 19:59 06/10/24 20:02 Prochlorperazine Edisylate 10 Mg/2 Ml Vial IVPUSH 06/10/24 20:00 10 mg ONCE ONE Administration Medical Decision Making Differential Diagnosis Differential Diagnoses: The differential diagnosis associated with the presentation includes (Dehydration, electrolyte derangement, severe anemia, drug-induced emesis, JUAN, .) Admission/Observation Consideration of admission/observation: Escalation of care including admission/observation considered Consult Healthcare Provider Management of the patient was discussed with: Hospitalist (Dr. Peterson) Lab Data MDM Lab Attestation statement: I reviewed the patient's lab results. 06/10/24 17:07 06/10/24 21:28 Labs: Lab Results 06/10/24 06/10/24 06/10/24 Range/Units 17:07 21:28 23:20 WBC 8.5 (4.8-10.8) X10*3/uL RBC 4.50 (4.20-5.50) X10*6/uL Hgb 14.1 (12.0-16.0) g/dl Hct 39.3 (37.0-47.0) % MCV 87.3 (80.0-98.0) fL MCH 31.3 (27.0-33.0) pg MCHC 35.9 H (31.0-35.0) g/dl RDW 12.5 (11.0-16.0) % Plt Count 384 (160-400) X10*3/uL MPV 9.2 L (9.4-12.3) fL Immature Gran % (Auto) 0.5 H (0.0-0.4) % Neut % (Auto) 57.7 (45-73) % Lymph % (Auto) 31.8 (20-40) % [place] % (Auto) 8.9 (2-11) % Eos % (Auto) 0.5 (0-4) % Baso % (Auto) 0.6 (0-2) % Lymph # (Auto) 2.7 (1.2-4.9) X10*3/uL [place] # (Auto) 0.8 (0.1-1.2) X10*3/uL Eos # (Auto) 0.0 (0.0-0.4) X10*3/uL Baso # (Auto) 0.1 (0.0-0.2) X10*3/uL Abs Immat Gran (auto) 0.04 H (0.00-0.03) X10*3/uL Absolute Neuts (auto) 4.9 (2.0-8.3) x10*3/uL Absolute Nucleated RBC 0.000 (0.0-0.012) X10*3/uL Nucleated RBC % (auto) 0.0 (0.0-0.2) /100WBC VBG pH 7.52 H (7.32-7.43) VBG pCO2 23 mmHg VBG pO2 90 mmHg VBG HCO3 19 L (22-26) mmol/L VBG O2 Saturation 99.0 % VBG Base Excess -1.1 mmol/L Sodium 139 138 (135-145) mmol/L Potassium 3.3 3.4 (3.3-5.1) mmol/L Chloride 110 H 112 H (96-108) mmol/L Carbon Dioxide 15 L 13 L (22-29) mmol/L Anion Gap 17 16 (12-20) BUN 10 8 L (9-16) mg/dL Creatinine 0.57 0.50 (0.5-1.4) mg/dL Estim Creat Clear Calc 120.4 137.2 Estimated GFR > 60 > 60 Random Glucose 79 76 (60-115) mg/dL Calcium 9.4 8.5 D (8.4-10.2) mg/dL Magnesium 1.8 (1.6-2.6) mg/dL Total Bilirubin 1.1 H (0.0-1.0) mg/dL Direct Bilirubin 0.4 (0.0-0.5) mg/dL AST 18 (5-31) U/L ALT 10 (0-31) U/L Alkaline Phosphatase 59 (39-117) U/L Total Protein 7.9 (6.5-8.0) g/dL Albumin 4.5 (3.5-5.0) g/dL Lipase 10 (8-78) U/L Beta HCG, Quant < 2 mIU/mL Influenza Type A (PCR) NEGATIVE (Negative) Influenza Type B (PCR) NEGATIVE (Negative) RSV RNA Qual (PCR) NEGATIVE (Negative) SARS-CoV-2 RNA (RT-PCR) NEGATIVE (Negative) Discharge Plan Discharge Clinical Impression: Acute vomiting, Cannabis abuse with unspecified cannabis-induced disorder Patient Disposition: Admitted As Inpatient Print Language: Bruneian
[2024-06-10 16:56] VITALS: BP 129/70; PULSE 92; RESP 18; TEMP 37.1; O2SAT 100; BMI 21.9
[2024-06-10] MEDS: Lactated Ringers 1,000 ML 999 ML IV ×2 (17:07→23:23)
[2024-06-10 17:14] LABS: MANUAL DIFF FLAG NO
[2024-06-10 17:16] LABS: Basophils Absolute Auto 0.1 X10*3/uL (0.0-0.2); Basophils Percent Auto 0.6 % (0-2); Eosinophils Percent Auto 0.5 % (0-4); Hematocrit 39.3 % (37.0-47.0); Hemoglobin 14.1 g/dl (12.0-16.0); Imm Gran Abs Auto 0.04 X10*3/uL (0.00-0.03); Imm Gran Pct Auto 0.5 % (0.0-0.4); Lymphocytes Absolute Auto 2.7 X10*3/uL (1.2-4.9); Lymphocytes Percent Auto 31.8 % (20-40); Mean Corpuscular HGB Conc 35.9 g/dl (31.0-35.0); Mean Corpuscular Hemoglobin 31.3 pg (27.0-33.0); Mean Corpuscular Volume 87.3 fL (80.0-98.0); Mean Platelet Volume 9.2 fL (9.4-12.3); Monocytes Absolute Auto 0.8 X10*3/uL (0.1-1.2); Monocytes Percent Auto 8.9 % (2-11); Neutrophils Absolute Auto 4.9 x10*3/uL (2.0-8.3); Neutrophils Percent Auto 57.7 % (45-73); Platelet Count 384 X10*3/uL (160-400); Red Cell Distribution Width 12.5 % (11.0-16.0); White Blood Count 8.5 X10*3/uL (4.8-10.8)
[2024-06-10 17:38] LABS: Alanine Aminotransferase 10 U/L (0-31); Albumin Level 4.5 g/dL (3.5-5.0); Alkaline Phosphatase 59 U/L (39-117); Anion Gap 17 (12-20); Aspartate Amino Transferase 18 U/L (5-31); Bilirubin Direct 0.4 mg/dL (0.0-0.5); Bilirubin Total 1.1 mg/dL (0.0-1.0); Blood Urea Nitrogen 10 mg/dL (9-16); Calcium 9.4 mg/dL (8.4-10.2); Carbon Dioxide 15 mmol/L (22-29); Chloride 110 mmol/L (96-108); Creatinine Clr Calc Pharmacy 120.4; Estimated Glomerular Filt Rate > 60; Glucose Random 79 mg/dL (60-115); Lipase 10 U/L (8-78); Magnesium 1.8 mg/dL (1.6-2.6); Potassium 3.3 mmol/L (3.3-5.1); Sodium 139 mmol/L (135-145); Total Protein 7.9 g/dL (6.5-8.0)
[2024-06-10 17:42] LABS: HCG Quantitative < 2 mIU/mL
[2024-06-10] MEDS: ondansetron HCL 4 MG/2 ML VIAL IVPUSH (18:11)
[2024-06-10] MEDS: Ketorolac Tromethamine 30 MG/ML VIAL IVPUSH (18:11)
[2024-06-10] MEDS: Famotidine/PF 20 MG/2 ML VIAL IVPUSH (18:11)
[2024-06-10] MEDS: Magnesium Hydrox/Alum Hydrox 30 ML ORAL.SUSP PO (18:11)
[2024-06-10 18:18] LABS: Influenza A PCR NEGATIVE (Negative); Influenza B PCR NEGATIVE (Negative); Resp Syncy Virus RNA Qual PCR NEGATIVE (Negative); SARS COV2 PCR INHOUSE NEGATIVE (Negative)
[2024-06-10] MEDS: Prochlorperazine Edisylate 10 MG/2 ML VIAL IVPUSH (20:02)
--- NOTE | 2024-06-10 20:06 | PC.NURSE ---
Pt a&ox4, no signs of distress. Pt reports 2/10 pain relieved with pain meds family at bedside Pt medicated per mar Plan of care ongoing.
[2024-06-10] MEDS: 0.9 % Sodium Chloride 1,000 ML 999 ML IV (21:18)
[2024-06-10 22:01] LABS: Anion Gap 16 (12-20); Blood Urea Nitrogen 8 mg/dL (9-16); Calcium 8.5 mg/dL (8.4-10.2); Carbon Dioxide 13 mmol/L (22-29); Chloride 112 mmol/L (96-108); Creatinine Clr Calc Pharmacy 137.2; Estimated Glomerular Filt Rate > 60; Glucose Random 76 mg/dL (60-115); Potassium 3.4 mmol/L (3.3-5.1); Sodium 138 mmol/L (135-145)
[2024-06-10] MEDS: droPERidol 5 MG/2 ML VIAL 1.25 MG IVPUSH (23:19)
[2024-06-10] MEDS: LORazepam 2 MG/ML VIAL 0.5 MG IVPUSH (23:22)
[2024-06-10 23:25] LABS: Venous Blood Gas Refer to POC result
[2024-06-10 23:26] LABS: VBG Base Excess -1.1 mmol/L; VBG HCO3 19 mmol/L (22-26); VBG pCO2 23 mmHg; VBG pH 7.52 (7.32-7.43); VBG pO2 90 mmHg
--- NOTE | 2024-06-10 23:39 | PC.NURSE ---
Pt medicated per [facility] Plan of care ongoing.
[2024-06-10 23:40] VITALS: BP 115/72; PULSE 73; RESP 18; TEMP 36.4; O2SAT 100
--- NOTE | 2024-06-10 23:48 | PC.NURSE ---
Urine sample requested per pt does not need to go. Plan of care ongoing.
[2024-06-11] VITALS (10 sets, daily range): BP systolic 111–132; BP diastolic 59–77; PULSE 75–93; RESP 12–20; TEMP 36.4–37; O2SAT 75–100
--- NOTE | 2024-06-11 00:46 | P.HPHOSP_ITS ---
History of Present Illness Date of Service: 06/11/24 Chief Complaint: Nausea/vomiting This is a 24-year-old female, not on prescription medications who presents to the emergency department for evaluation of nausea and vomiting. Patient was seen in the ER on 06/09 and discharged home with ondansetron. Patient states her nausea and vomiting have continued and she is unable to tolerate p.o. intake. Also has been having epigastric discomfort which is intermittent and unrelated to food intake. No symptoms of gastroesophageal reflux disease. Patient states she was also having diarrhea for the last 2 days but has stopped on the day of presentation. Endorses smoking marijuana every day. No dysuria, increased urinary frequency or urgency. No vaginal discharge. Patient thinks her symptoms are due to endometriosis but states she has never been diagnosed with endometriosis before. No fever, chills, chest pain, palpitations, shortness of breath, changes in urinary or bowel habits. In the emergency department, patient unable to tolerate p.o. intake and with continued nausea and vomiting. Review of Systems 2 Constitutional: Constitutional: Reports fatigue, Reports malaise, Reports poor appetite and Reports weakness Cardiovascular: Cardiovascular: Reports no additional cardiovascular complaints Respiratory: Respiratory: Reports no additional respiratory complaints Gastrointestinal: Gastrointestinal: Reports abdominal pain, Reports nausea and Reports vomiting Genitourinary: Genitourinary: Reports no additional female genitourinary complaints Neurologic: Reports weakness Endocrine: Endocrine: Reports fatigue [facility] Medical History Rathke's cleft cyst Anxiety GERD (gastroesophageal reflux disease) Nausea Headache Family History Father Heart problem Osteoarthritis Mother Mood disorder Depression Chronic mental illness Maternal Grandmother Lymphoma History of breast cancer Other Substance use disorder Surgical History History of placement of ear tubes Social History Household Members: Family Household Members Other:: Mother Housing: Apartment Alcohol intake: never Patient Tobacco Use Status: Never used Tobacco Smoked in Last 30 Days: No e-Cigarette/Vaping Use: Never Used Second Hand Smoke Exposure: No Use of substances other than those prescribed or required for medical reasons: Yes Substance Use Type: Marijuana Substance Use Frequency: Daily Last Used Substance: Days (ago) Advance Directives: No Advance Directives Information Provided: No service: No 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al status: employed 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 Cognitive needs: No Hearing needs: No Vision needs: Yes (Glasses) Meds Allergies Allergy/AdvReac Type Severity Reaction Status Date / Time seasonal Allergy Unknown sneezing, Uncoded 06/10/24 16:58 stuffy nose Home Medications ?Medication ?Instructions ?Recorded ?Confirmed ?Last Taken ?Type desogestrel 0.15 mg-ethinyl 1 tab PO DAILY 01/06/24 01/06/24 Unknown History estradiol 0.03 mg tablet (Apri) Physical Exam 2 Vital Signs and Narrative: Vital Signs: Last Vital Signs Temp 97.6 F 06/10/24 23:40 Pulse 73 06/10/24 23:40 Resp 18 06/10/24 23:40 BP 115/72 06/10/24 23:40 Pulse Ox 100 06/10/24 23:40 O2 Del Method Room Air 06/10/24 23:40 BMI result Body Mass Index 21.9 Young female lying in bed in no distress Neck supple, no JVD Regular rate and rhythm, S1-S2 heard Regular breath sounds bilaterally, no wheezing or crackles appreciated Abdomen soft nontender, no guarding, no rigidity Patient is awake, alert and oriented to self, place, time and person ; no focal motor deficit Psych: Normal mood No pedal edema Results Labs 06/10/24 17:07 06/10/24 21:28 Labs: Laboratory Results - last 24 hr 06/10/24 06/10/24 06/10/24 17:07 21:28 23:20 MCV 87.3 MCH 31.3 MCHC 35.9 H RDW 12.5 Plt Count 384 MPV 9.2 L Immature Gran % (Auto) 0.5 H Neut % (Auto) 57.7 Lymph % (Auto) 31.8 [place] % (Auto) 8.9 Eos % (Auto) 0.5 Baso % (Auto) 0.6 Lymph # (Auto) 2.7 [place] # (Auto) 0.8 Eos # (Auto) 0.0 Baso # (Auto) 0.1 Abs Immat Gran (auto) 0.04 H Absolute Neuts (auto) 4.9 Absolute Nucleated RBC 0.000 Nucleated RBC % (auto) 0.0 VBG pH 7.52 H VBG pCO2 23 VBG pO2 90 VBG HCO3 19 L VBG O2 Saturation 99.0 VBG Base Excess -1.1 Anion Gap 17 16 Estim Creat Clear Calc 120.4 137.2 Estimated GFR > 60 > 60 Random Glucose 79 76 Calcium 9.4 8.5 D Magnesium 1.8 Total Bilirubin 1.1 H Direct Bilirubin 0.4 AST 18 ALT 10 Alkaline Phosphatase 59 Total Protein 7.9 Albumin 4.5 Lipase 10 Beta HCG, Quant < 2 Influenza Type A (PCR) NEGATIVE Influenza Type B (PCR) NEGATIVE RSV RNA Qual (PCR) NEGATIVE SARS-CoV-2 RNA (RT-PCR) NEGATIVE Assessment and Plan (1) Nausea and vomiting: Status: Acute Plan This is a 24-year-old female, not on prescription medications who presents to the emergency department for evaluation of nausea and vomiting. #. Intractable nausea and vomiting: Will admit patient for observation as unable to tolerate p.o. intake. Clear liquid diet and advance as tolerated. Endorses smoking marijuana, concern for cannabinoid hyperemesis syndrome. Given droperidol in the ER. Supportive care and symptomatic treatment. Resuscitated with IV crystalloids. CT abdomen/pelvis on 06/09 without any acute abnormality. Abdominal ultrasound without any acute abnormality. #. Gastroesophageal reflux disease: On PPI DVT prophylaxis: Lovenox Full code Quality Stroke Does the patient have a stroke diagnosis?: No VTE Prior VTE?: No VTE Risk Level:: Medical - moderate - high VTE Device Contraindication: Treatment Not Indicated VTE Drug Contraindication: N/A - Med Ordered
[2024-06-11] MEDS: Enoxaparin Sodium 40 MG/0.4 ML SYRINGE SUBCUT (02:20)
--- NOTE | 2024-06-11 02:25 | PC.NURSE ---
Pt medicated per mar. Pt denies pain at this time. Plan of care ongoing.
[2024-06-11] MEDS: Omeprazole 40 MG CAPSULE.DR PO (06:50)
--- NOTE | 2024-06-11 07:00 | PC.NURSE ---
Report taken from Elizabeth Muller RN
[2024-06-11 07:03] LABS: Appearance Urine Clear; Color Urine Yellow; Glucose Urine UA Negative (Negative); Leukocyte Esterase Urine Negative (Negative); Nitrite Urine Negative (Negative); PH 5.5 (5.0-9.0); Specific Gravity - Urine 1.025 (1.005-1.025); Urine Blood Negative (Negative); Urine Ketones >=160 mg/dL (Negative); Urine Protein Negative (Neg-Trace)
[2024-06-11 07:23] LABS: Bacteria Urine Trace (None Seen); Hyaline Casts Urine 0-2 /LPF (0-2); RBC Urine 0-2 /HPF (0-2); UACC Culture Trigger YES
--- NOTE | 2024-06-11 07:42 | HO.PM.IMPN ---
Subjective Subjective Date of Service: 06/11/24 Interval History: Seen in follow up for cyclic vomiting Interval history: No vomiting since last night. Still reporting nausea and lightheadness. No syncope. Tolerating small amounts of clears. Mild epigastric pain. Reports symptoms often coincide with menstrual cycle Review of Systems Review of Systems: Yes all other systems are reviewed and are negative Physical Exam Vital Signs: Vital Signs: Last Vital Signs Temp 97.6 F 06/10/24 23:40 Pulse 75 06/11/24 06:15 Resp 18 06/11/24 06:15 BP 113/65 06/11/24 06:15 Pulse Ox 75 L 06/11/24 06:15 O2 Del Method Room Air 06/11/24 06:15 BMI result Body Mass Index 21.9 Constitutional - Awake and Alert, No apparent distress Eyes - PERRLA, EOMI Cardiovascular - S1S2, RRR, No edema Respiratory - Normal lung expansion, Normal respiratory effort, No respiratory distress, CTA bilaterally Gastrointestinal - NT / ND; +BS; No rebound or guarding Extremities - no calf tenderness bilaterally, no swelling Skin - Warm/Dry Neurological - Alert & oriented x3 Psychological - Appropriate affect Objective Data Active Medications Acetaminophen (Acetaminophen 325 Mg Tablet) 650 mg PO Q6H PRN PRN Reason: Pain, Mild 1-3,fever,headache Calcium Carbonate (Calcium Carbonate 750 Mg Tab.Chew) 750 mg PO Q4H PRN PRN Reason: Heartburn Enoxaparin Sodium (Enoxaparin Sodium 40 Mg/0.4 Ml Syringe) 40 mg SUBCUT Q24H [facility] Last Admin: 06/11/24 02:20 Dose: 40 mg Documented By: MAL Lactated Ringer's (Lr) 1,000 mls @ 150 mls/hr IVCONT .Q6H40M [facility] Magnesium Hydroxide (Milk Of Magnesia 30 Ml Oral.Susp) 30 ml PO DAILY PRN PRN Reason: Constipation Melatonin (Melatonin 3 Mg Tablet) 6 mg PO BEDTIME PRN PRN Reason: Insomnia Omeprazole (Omeprazole 40 Mg Capsule.Dr) 40 mg PO DAILY@0630 [facility] Last Admin: 06/11/24 06:50 Dose: 40 mg Documented By: MAL Ondansetron HCl (Ondansetron Hcl 4 Mg/2 Ml Vial) 4 mg IVPUSH Q8H PRN PRN Reason: Nausea and Vomiting Sodium Chloride (0.9 % Sodium Chloride Flush 3 Ml Syringe) 3 ml IVFLUSH QSHIFT [facility] Last Admin: 06/11/24 06:59 Dose: Not Given Documented By: GINO Non-Admin Reason: Previously Administered Labs 06/11/24 10:16 06/11/24 10:16 Labs: Laboratory Results - last 24 hr 06/10/24 06/10/24 06/10/24 17:07 21:28 23:20 MCV 87.3 MCH 31.3 MCHC 35.9 H RDW 12.5 Plt Count 384 MPV 9.2 L Immature Gran % (Auto) 0.5 H Neut % (Auto) 57.7 Lymph % (Auto) 31.8 [place] % (Auto) 8.9 Eos % (Auto) 0.5 Baso % (Auto) 0.6 Lymph # (Auto) 2.7 [place] # (Auto) 0.8 Eos # (Auto) 0.0 Baso # (Auto) 0.1 Abs Immat Gran (auto) 0.04 H Absolute Neuts (auto) 4.9 Absolute Nucleated RBC 0.000 Nucleated RBC % (auto) 0.0 VBG pH 7.52 H VBG pCO2 23 VBG pO2 90 VBG HCO3 19 L VBG O2 Saturation 99.0 VBG Base Excess -1.1 Anion Gap 17 16 Estim Creat Clear Calc 120.4 137.2 Estimated GFR > 60 > 60 Random Glucose 79 76 Calcium 9.4 8.5 D Magnesium 1.8 Total Bilirubin 1.1 H Direct Bilirubin 0.4 AST 18 ALT 10 Alkaline Phosphatase 59 Total Protein 7.9 Albumin 4.5 Lipase 10 Beta HCG, Quant < 2 Urine Color Urine Appearance Urine pH Ur Specific [place] Urine Protein Urine Glucose (UA) Urine Ketones Urine Blood Urine Nitrite Ur Leukocyte Esterase Urine RBC Urine WBC Ur Squamous Epith Cells Urine Bacteria Hyaline Casts Influenza Type A (PCR) NEGATIVE Influenza Type B (PCR) NEGATIVE RSV RNA Qual (PCR) NEGATIVE SARS-CoV-2 RNA (RT-PCR) NEGATIVE 06/11/24 06:55 MCV MCH MCHC RDW Plt Count MPV Immature Gran % (Auto) Neut % (Auto) Lymph % (Auto) [place] % (Auto) Eos % (Auto) Baso % (Auto) Lymph # (Auto) [place] # (Auto) Eos # (Auto) Baso # (Auto) Abs Immat Gran (auto) Absolute Neuts (auto) Absolute Nucleated RBC Nucleated RBC % (auto) VBG pH VBG pCO2 VBG pO2 VBG HCO3 VBG O2 Saturation VBG Base Excess Anion Gap Estim Creat Clear Calc Estimated GFR Random Glucose Calcium Magnesium Total Bilirubin Direct Bilirubin AST ALT Alkaline Phosphatase Total Protein Albumin Lipase Beta HCG, Quant Urine Color Yellow Urine Appearance Clear Urine pH 5.5 Ur Specific [place] 1.025 Urine Protein Negative Urine Glucose (UA) Negative Urine Ketones >=160 Urine Blood Negative Urine Nitrite Negative Ur Leukocyte Esterase Negative Urine RBC 0-2 Urine WBC 6-10 H Ur Squamous Epith Cells 6-10 Urine Bacteria Trace Hyaline Casts 0-2 Influenza Type A (PCR) Influenza Type B (PCR) RSV RNA Qual (PCR) SARS-CoV-2 RNA (RT-PCR) Assessment and Plan (1) Nausea and vomiting: Status: Acute Plan 24-year-old female, not on prescription medications who presents to the emergency department for evaluation of nausea and vomiting. #Intractable nausea and vomiting -possibly related to cannabis use (uses nightly to relax) vs r/t endometirosis given symptoms often coincide with menstrual cycle -Clear liquid diet and advance as tolerated -Supportive care and symptomatic treatment -continue IV fluids -antiemetics p.r.n. -CT abdomen/pelvis on 06/09 without any acute abnormality. Abdominal ultrasound without any acute abnormality. -add capsaicin -recommend discontinuation of marijuana. Follow-up with OBGYN regarding endometriosis #. Gastroesophageal reflux disease: On PPI DVT prophylaxis: Lovenox Full code Quality Stroke Does the patient have a stroke diagnosis?: No VTE Prior VTE?: No VTE Risk Level:: Medical - moderate - high VTE Device Contraindication: Treatment Not Indicated VTE Drug Contraindication: N/A - Med Ordered
[2024-06-11] MEDS: Lactated Ringers 1,000 ML 150 ML IVCONT ×3 (08:15→23:38)
--- NOTE | 2024-06-11 08:36 | PHA.MEDREC ---
Addendum entered by Yanet Corrigan [facility] 06/11/24 08:49: reviewed by pharmacist Original Note: Pharmacy Consult ? Medication Reconciliation Pharmacy has completed the medication reconciliation. Spoke with patient to confirm. She is not on any control or antibiotics currently. She had zofran at home prn that she took before coming in to the ED.
[2024-06-11 09:37] LABS: Amphetamine Screen Urine Not Detected (Not Detect); Barbiturates, Urine Not Detected (Not Detect); Benzodiazepines Screen Urine Not Detected (Not Detect); Buprenorphine Scr Not Detected (Not Detect); Cannabinoid Screen Urine POSITIVE (Not Detect); Cocaine Screen Urine Not Detected (Not Detect); Fentanyl, urine Not Detected (Not Detect); Methadone Screen, Urine Not Detected (Not Detect); Opiate Screen Urine Not Detected (Not Detect); Oxycodone Screen Urine Not Detected (Not Detect); Phencyclidine Screen Urine Not Detected (Not Detect)
[2024-06-11 10:20] LABS: MANUAL DIFF FLAG NO
[2024-06-11 10:22] LABS: Basophils Absolute Auto 0.1 X10*3/uL (0.0-0.2); Basophils Percent Auto 0.7 % (0-2); Eosinophils Percent Auto 0.1 % (0-4); Hematocrit 35.2 % (37.0-47.0); Hemoglobin 12.2 g/dl (12.0-16.0); Imm Gran Abs Auto 0.03 X10*3/uL (0.00-0.03); Imm Gran Pct Auto 0.4 % (0.0-0.4); Lymphocytes Absolute Auto 1.8 X10*3/uL (1.2-4.9); Lymphocytes Percent Auto 24.4 % (20-40); Mean Corpuscular HGB Conc 34.7 g/dl (31.0-35.0); Mean Corpuscular Volume 89.3 fL (80.0-98.0); Mean Platelet Volume 9.2 fL (9.4-12.3); Monocytes Absolute Auto 0.6 X10*3/uL (0.1-1.2); Monocytes Percent Auto 8.2 % (2-11); Neutrophils Absolute Auto 4.9 x10*3/uL (2.0-8.3); Neutrophils Percent Auto 66.2 % (45-73); Platelet Count 314 X10*3/uL (160-400); Red Blood Count 3.94 X10*6/uL (4.20-5.50); Red Cell Distribution Width 12.5 % (11.0-16.0); White Blood Count 7.3 X10*3/uL (4.8-10.8)
[2024-06-11 10:43] LABS: Anion Gap 12 (12-20); Blood Urea Nitrogen 5 mg/dL (9-16); Calcium 8.2 mg/dL (8.4-10.2); Carbon Dioxide 18 mmol/L (22-29); Chloride 112 mmol/L (96-108); Estimated Glomerular Filt Rate > 60; Glucose Random 91 mg/dL (60-115); Potassium 3.7 mmol/L (3.3-5.1); Sodium 138 mmol/L (135-145)
[2024-06-11] MEDS: ondansetron HCL 4 MG/2 ML VIAL IVPUSH (13:49)
--- NOTE | 2024-06-11 15:58 | MHC.CM.PN ---
CM MET WITH PT AND MOTHER AT BEDSIDE PT LIVES WITH HER MOTHER AND IS FULLY INDEPENDENT SHE HAS NO SERVICES OR DME AND WORKS PT DOES NOT HAVE A HCP, SHE DOES NOT WANT TO COMPLETE ONE TODAY PCP: STEFANIA DILL OBSERVATION NOTICE DELIVERED DCP: HOME NO SERVICES MOTHER TO TRANSPORT
--- NOTE | 2024-06-11 20:12 | PC.NURSE ---
this rn assumed care of pt, pt a&ox4, respirations even and unlabored. pt reporting dizziness at this time, neuros in tact. provider aware, orders as follows.
[2024-06-11] MEDS: Meclizine HCl 12.5 MG TABLET PO (20:13)
--- NOTE | 2024-06-11 23:40 | PC.NURSE ---
pt resting in stretcher, no acute distress noted, pt offers no complaints.
[2024-06-12] MEDS: Enoxaparin Sodium 40 MG/0.4 ML SYRINGE SUBCUT ×2 (01:36→23:47)
[2024-06-12 04:50] LABS: Anion Gap 12 (12-20); Blood Urea Nitrogen 5 mg/dL (9-16); Carbon Dioxide 20 mmol/L (22-29); Chloride 111 mmol/L (96-108); Creatinine Clr Calc Pharmacy 131.9; Estimated Glomerular Filt Rate > 60; Glucose Random 73 mg/dL (60-115); Potassium 3.3 mmol/L (3.3-5.1); Sodium 140 mmol/L (135-145)
[2024-06-12 06:10] VITALS: BP 122/76; PULSE 65; RESP 16; TEMP 37; O2SAT 100
[2024-06-12] MEDS: Lactated Ringers 1,000 ML 150 ML IVCONT (06:19)
[2024-06-12] MEDS: ondansetron HCL 4 MG/2 ML VIAL IVPUSH ×2 (06:20→14:20)
--- NOTE | 2024-06-12 06:23 | PC.NURSE ---
holding PO medication at this time d/t pt reporting nausea. pt medicated with prn zofran.
--- NOTE | 2024-06-12 07:52 | PC.NURSE ---
Assumed care of pt at 0700. Pt resting in bed quietly, a/ox3, respirations even and unlabored, no signs of increased wob/sob noted. Pt states feeling dizzy/headache. Remains on medical office manager for safety, HR 60s NSR. PRN Zofran given on previous shift by night RN. Pt states still nauseous. Morning Omeprazole held d/t pt feeling nauseous/vomiting, admitting PA made aware. Call jacob within reach, all needs met at this time.
[2024-06-12] MEDS: Omeprazole 40 MG CAPSULE.DR PO (08:13)
[2024-06-12] MEDS: Acetaminophen 325 MG TABLET 650 MG PO ×2 (08:13→18:33)
[2024-06-12] MEDS: Lactated Ringers 1,000 ML 100 ML IVCONT (14:20)
[2024-06-12 14:29] LABS: Appearance Urine Clear; Color Urine Yellow; Glucose Urine UA Negative (Negative); Leukocyte Esterase Urine Trace (Negative); Nitrite Urine Negative (Negative); PH 6.5 (5.0-9.0); UMIC TRIGGER UACC YES; Urine Blood Negative (Negative); Urine Ketones 80 mg/dL (Negative); Urine Protein Negative (Neg-Trace)
[2024-06-12 14:40] LABS: Bacteria Urine None Seen (None Seen); Hyaline Casts Urine 0-2 /LPF (0-2); RBC Urine 0-2 /HPF (0-2); UACC Culture Trigger YES
--- NOTE | 2024-06-12 17:52 | P.PNIM_ITS ---
Subjective Subjective Date of Service: 06/12/24 Interval History: Seen in follow up for cyclic vomiting Interval history: Continue with nausea but no ongoing vomiting. Mild suprapubic abdominal pain. Reports ongoing positional dizziness. Tolerating only small bites of jello and fluids Review of Systems Review of Systems: Yes all other systems are reviewed and are negative Physical Exam 2 Vital Signs: Vital Signs: Last Vital Signs Temp 98.6 F 06/12/24 06:10 Pulse 65 06/12/24 06:10 Resp 16 06/12/24 06:10 BP 122/76 06/12/24 06:10 Pulse Ox 100 06/12/24 06:10 O2 Del Method Room Air 06/12/24 06:10 BMI result Body Mass Index 21.9 Constitutional - Awake and Alert, No apparent distress Eyes - PERRLA, EOMI Cardiovascular - S1S2, RRR, No edema Respiratory - Normal lung expansion, Normal respiratory effort, No respiratory distress, CTA bilaterally Gastrointestinal - NT / ND; +BS; No rebound or guarding : Mild R flank pain Extremities - no calf tenderness bilaterally, no swelling Skin - Warm/Dry Neurological - Alert & oriented x3 Psychological - Appropriate affect Objective Data Active Medications Acetaminophen (Acetaminophen 325 Mg Tablet) 650 mg PO Q6H PRN PRN Reason: Pain, Mild 1-3,fever,headache Last Admin: 06/12/24 08:13 Dose: 650 mg Documented By: LAUREANO Calcium Carbonate (Calcium Carbonate 750 Mg Tab.Chew) 750 mg PO Q4H PRN PRN Reason: Heartburn Capsaicin (Capsaicin 0.025% Cream 60 Gm Tube) 1 appl TOPICAL QID PRN; Protocol PRN Reason: epigastric pain/nausea/vomitin Enoxaparin Sodium (Enoxaparin Sodium 40 Mg/0.4 Ml Syringe) 40 mg SUBCUT Q24H [facility] Last Admin: 06/12/24 01:36 Dose: 40 mg Documented By: NAT Lactated Ringer's (Lr) 1,000 mls @ 100 mls/hr IVCONT .Q10H [facility] Last Admin: 06/12/24 14:20 Dose: 100 mls/hr Documented By: LAUREANO Magnesium Hydroxide (Milk Of Magnesia 30 Ml Oral.Susp) 30 ml PO DAILY PRN PRN Reason: Constipation Melatonin (Melatonin 3 Mg Tablet) 6 mg PO BEDTIME PRN PRN Reason: Insomnia Omeprazole (Omeprazole 40 Mg Hemanth.) 40 mg PO DAILY@0630 [facility] Last Admin: 06/12/24 08:13 Dose: 40 mg Documented By: LAUREANO Ondansetron HCl (Ondansetron Hcl 4 Mg/2 Ml Vial) 4 mg IVPUSH Q8H PRN PRN Reason: Nausea and Vomiting Last Admin: 06/12/24 14:20 Dose: 4 mg Documented By: LAUREANO Sodium Chloride (0.9 % Sodium Chloride Flush 3 Ml Syringe) 3 ml IVFLUSH QSHIFT [facility] Last Admin: 06/12/24 16:05 Dose: Not Given Documented By: LAUREANO Non-Admin Reason: IV Running Labs 06/11/24 10:16 06/12/24 04:31 Labs: Laboratory Results - last 24 hr 06/12/24 06/12/24 04:31 14:24 Anion Gap 12 Estim Creat Clear Calc 131.9 Estimated GFR > 60 Random Glucose 73 Calcium 8.0 L Urine Color Yellow Urine Appearance Clear Urine pH 6.5 Ur Specific [place] 1.010 Urine Protein Negative Urine Glucose (UA) Negative Urine Ketones 80 Urine Blood Negative Urine Nitrite Negative Ur Leukocyte Esterase Trace H Urine RBC 0-2 Urine WBC 6-10 H Ur Squamous Epith Cells 3-5 Urine Bacteria None Seen Hyaline Casts 0-2 Microbiology Microbiology Results: Microbiology 06/11/24 Unknown Urine Culture - Final Urine clean catch - Clean Catch Midstream Assessment and Plan (1) Nausea and vomiting: Status: Acute Plan 24-year-old female, not on prescription medications who presents to the emergency department for evaluation of nausea and vomiting. #Intractable nausea and vomiting -possibly related to cannabis use (uses nightly to relax) vs r/t endometirosis given symptoms often coincide with menstrual cycle -Clear liquid diet and advance as tolerated -Supportive care and symptomatic treatment -continue IV fluids -antiemetics p.r.n. -CT abdomen/pelvis on 06/09 without any acute abnormality. Abdominal ultrasound without any acute abnormality. -add capsaicin -recommend discontinuation of marijuana. Follow-up with OBGYN regarding endometriosis -given flank pain, check UA #Positional lightheadedness -Check ortho VS -continue ivf #. Gastroesophageal reflux disease: On PPI DVT prophylaxis: Lovenox Full code Pt requires inpt stay at least 2 midnights due to limited PO intolerance, significant nausea requiring IV antiemetics and persisting positional lightheadness Quality Stroke Does the patient have a stroke diagnosis?: No VTE Prior VTE?: No VTE Risk Level:: Medical - moderate - high VTE Device Contraindication: Treatment Not Indicated VTE Drug Contraindication: N/A - Med Ordered
[2024-06-12 19:12] VITALS: BP 141/80; PULSE 57; RESP 16; TEMP 37.1; O2SAT 100
--- OUTSIDE RECORDS SUMMARY | 2024-06-12 19:18 | XMS_ITS | Clinical Summary ---
Author Organization [facility] ity Address [address] [place] [address] Care Team Providers Care Radiology Technician Name Role Phone Derek Dia Primary Care Provider [phone] Allergies No known active allergies Medications desogestreL-ethi nyl estradioL (Apri) 0.15-0.03 mg per tablet Take [...] Date Smoking Tobacco: Never Smokeless Tobacco: Never Comments Unknown Sex and Gender Information Value Date Recorded Sex Assigned at Not on file Legal Sex Female 11:41 AM EDT Gender Identity Not on file Sexual Orientation [...] 3:00 PM EDT Office Visit Orthopedic Surgery - [place] [address] [phone] William Atkins, DPRashad [address] [address] Health Maintenance Due Date Last Done Comments Gonorrhea/Chlamydia Screening 2000 HPV Vaccines (1 - 3-dose series) 2015 DTaP,Tdap,and Td Vaccines (1 - Tdap) 2019 Hepatitis B Vaccines (1 of 3 - 19+ 3-dose series) 2019 Cervical Cancer Screening: P ap Smear 2021 COVID-19 Vaccine ( - 2023-2 5 season) 2023 Influenza Vaccine [...] patient's age to complete this topic Meningococcal B Vacine Aged Out No lo nger eligible based on patient's age to complete [...] age to complete this topic Care Teams Radiology Technician Relationship Specialty Start Date End Date Derek Dia PA [address] [place] [id number] PCP - General 09/22/23
[2024-06-12] MEDS: Capsaicin 0.025% Cream 60 GM TUBE 1 APPL TOPICAL (20:59)
[2024-06-12] MEDS: Meclizine HCl 25 MG TABLET PO (23:47)
[2024-06-13] VITALS (7 sets, daily range): BP systolic 103–128; BP diastolic 56–78; PULSE 56–80; RESP 14–20; TEMP 36.1–36.6; O2SAT 96–100; BMI 21.1
[2024-06-13] MEDS: Lactated Ringers 1,000 ML 100 ML IVCONT (01:52)
--- NOTE | 2024-06-13 05:52 | PC.NURSE ---
nausea minimal overnight. capsaicin effective. no vomiting. meclizine was given for dizziniess with therapeutic effect. pt states needs are met. cont fluids running. plan of care ongoing
[2024-06-13] MEDS: Omeprazole 40 MG CAPSULE.DR PO (05:58)
[2024-06-13 06:22] LABS: Anion Gap 15 (12-20); Blood Urea Nitrogen 6 mg/dL (9-16); Calcium 8.9 mg/dL (8.4-10.2); Carbon Dioxide 18 mmol/L (22-29); Chloride 109 mmol/L (96-108); Creatinine Clr Calc Pharmacy 134.5; Estimated Glomerular Filt Rate > 60; Glucose Random 47 mg/dL (60-115); Potassium 3.1 mmol/L (3.3-5.1); Sodium 139 mmol/L (135-145)
[2024-06-13 06:59] LABS: Glucose, Whole Blood 109 mg/dL (60-115)
--- NOTE | 2024-06-13 08:16 | HO.PM.IMPN ---
Subjective Subjective Date of Service: 06/13/24 Interval History: Seen in follow up for cyclic vomiting Interval history: Feeling much better as far as nausea. She is able to tolerate full liquids. No ongoing vomiting or diarrhea. However, she still is experiencing significant vertigo with head movements and change of position that has been ongoing for the duration of her nausea, about 4 days. She also states that she has been experiencing intermittent tinnitus for several weeks. Denies any headaches, hearing loss, visual changes. No improvement with meclizine. Reports Myriam maneuver made her feel worse She also tells me that about 2 years ago she experienced bilateral paresthesias in the lower extremities as well as ocular pain. 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 Review of Systems Review of Systems: Yes all other systems are reviewed and are negative Physical Exam Vital Signs: Vital Signs: Last Vital Signs Temp 97.9 F 06/13/24 05:22 Pulse 80 06/13/24 05:22 Resp 14 06/13/24 05:22 BP 105/56 L 06/13/24 05:22 Pulse Ox 99 06/13/24 05:22 O2 Del Method Room Air 06/13/24 05:22 BMI result Body Mass Index 21.9 Constitutional - Awake and Alert, No apparent distress Eyes - PERRLA, EOMI Ears - external ears normal, canals clear, tympanic membrane pearly mclain with good cone of light and intact Cardiovascular - S1S2, RRR, No edema Respiratory - Normal lung expansion, Normal respiratory effort, No respiratory distress, CTA bilaterally Gastrointestinal - NT / ND; +BS; No rebound or guarding Extremities - no calf tenderness bilaterally, no swelling Skin - Warm/Dry Neurological - Alert & oriented x3, CN II-XII in tact, except for horizontal nystagmus Psychological - Appropriate affect Objective Data Active Medications Acetaminophen (Acetaminophen 325 Mg Tablet) 650 mg PO Q6H PRN PRN Reason: Pain, Mild 1-3,fever,headache Last Admin: 06/12/24 18:33 Dose: 650 mg Documented By: LAUREANO Calcium Carbonate (Calcium Carbonate 750 Mg Tab.Chew) 750 mg PO Q4H PRN PRN Reason: Heartburn Capsaicin (Capsaicin 0.025% Cream 60 Gm Tube) 1 appl TOPICAL QID PRN; Protocol PRN Reason: epigastric pain/nausea/vomitin Last Admin: 06/12/24 20:59 Dose: 1 appl Documented By: PABLO Enoxaparin Sodium (Enoxaparin Sodium 40 Mg/0.4 Ml Syringe) 40 mg SUBCUT Q24H [facility] Last Admin: 06/12/24 23:47 Dose: 40 mg Documented By: PABLO Lactated Ringer's (Lr) 1,000 mls @ 100 mls/hr IVCONT .Q10H [facility] Last Admin: 06/13/24 01:52 Dose: 100 mls/hr Documented By: PABLO Magnesium Hydroxide (Milk Of Magnesia 30 Ml Oral.Susp) 30 ml PO DAILY PRN PRN Reason: Constipation Meclizine HCl (Meclizine Hcl 25 Mg Tablet) 25 mg PO Q6H PRN PRN Reason: dizziness Last Admin: 06/12/24 23:47 Dose: 25 mg Documented By: PABLO Melatonin (Melatonin 3 Mg Tablet) 6 mg PO BEDTIME PRN PRN Reason: Insomnia Omeprazole (Omeprazole 40 Mg Capsule.Dr) 40 mg PO DAILY@0630 [facility] Last Admin: 06/13/24 05:58 Dose: 40 mg Documented By: PABLO Ondansetron HCl (Ondansetron Hcl 4 Mg/2 Ml Vial) 4 mg IVPUSH Q8H PRN PRN Reason: Nausea and Vomiting Last Admin: 06/12/24 14:20 Dose: 4 mg Documented By: LAUREANO Potassium Chloride (Potassium Chloride Packet 20 Meq Packet) 40 meq PO ONCE ONE Stop: 06/13/24 08:15 Sodium Chloride (0.9 % Sodium Chloride Flush 3 Ml Syringe) 3 ml IVFLUSH QSHIFT [facility] Last Admin: 06/13/24 00:00 Dose: Not Given Documented By: PABLO Non-Admin Reason: Previously Administered Labs 06/11/24 10:16 06/13/24 05:49 Labs: Laboratory Results - last 24 hr 06/12/24 06/13/24 06/13/24 14:24 05:49 06:56 Anion Gap 15 Estim Creat Clear Calc 134.5 Estimated GFR > 60 POC Glucose 109 Random Glucose 47 L* Calcium 8.9 D Urine Color Yellow Urine Appearance Clear Urine pH 6.5 Ur Specific [place] 1.010 Urine Protein Negative Urine Glucose (UA) Negative Urine Ketones 80 Urine Blood Negative Urine Nitrite Negative Ur Leukocyte Esterase Trace H Urine RBC 0-2 Urine WBC 6-10 H Ur Squamous Epith Cells 3-5 Urine Bacteria None Seen Hyaline Casts 0-2 Microbiology Microbiology Results: Microbiology 06/11/24 Unknown Urine Culture - Final Urine clean catch - Clean Catch Midstream Assessment and Plan (1) Nausea and vomiting: Status: Acute Plan 24-year-old female, not on prescription medications who presents to the emergency department for evaluation of nausea and vomiting. #Intractable nausea and vomiting -possibly related to cannabis use (uses nightly to relax) vs r/t endometirosis given symptoms often coincide with menstrual cycle -Tolerating diet advancement. Will dc fluids -Supportive care and symptomatic treatment -antiemetics p.r.n. -CT abdomen/pelvis on 06/09 without any acute abnormality. Abdominal ultrasound without any acute abnormality. -continue prn capsaicin -recommend discontinuation of marijuana. Follow-up with OBGYN regarding endometriosis #Persistent vertigo/tinnitus -Orthostatic VS negative -Meclizine ordered with no effect -continue ivf -PT eval for myriam maneuver- pt reports this made her feel worse therefore be PPV unlikely, ? Meniere's disease however no hearing loss -MRI of the brain ordered to evaluate for MS or other neuromuscular disorder. Per Radiology, check CT brain 1st which is ordered -neurology consult #. Gastroesophageal reflux disease: On PPI DVT prophylaxis: Lovenox Full code Pt requires inpt stay at least 2 midnights due to limited PO intolerance, significant nausea requiring IV antiemetics and persisting positional lightheadness resulting in gait instability Quality Stroke Does the patient have a stroke diagnosis?: No VTE Prior VTE?: No VTE Risk Level:: Medical - moderate - high VTE Device Contraindication: Treatment Not Indicated VTE Drug Contraindication: N/A - Med Ordered
[2024-06-13] MEDS: Potassium Chloride Packet 20 MEQ PACKET 40 MEQ PO (08:43)
[2024-06-13 08:46] LABS: Venous Blood Gas Refer to POC result
[2024-06-13 08:49] LABS: VBG Base Excess -2.1 mmol/L; VBG HCO3 22 mmol/L (22-26); VBG pCO2 39 mmHg; VBG pH 7.36 (7.32-7.43); VBG pO2 32 mmHg
[2024-06-13] MEDS: Meclizine HCl 25 MG TABLET PO (10:43)
[2024-06-13] MEDS: ondansetron HCL 4 MG/2 ML VIAL IVPUSH ×2 (14:46→23:22)
[2024-06-13] MEDS: 0.9 % Sodium Chloride Flush 3 ML SYRINGE IVFLUSH ×2 (14:48→23:22)
[2024-06-13] MEDS: Capsaicin 0.025% Cream 60 GM TUBE 1 APPL TOPICAL (20:52)
[2024-06-13] MEDS: Enoxaparin Sodium 40 MG/0.4 ML SYRINGE SUBCUT (23:22)
[2024-06-13 23:43] LABS: Glucose, Whole Blood 58 mg/dL (60-115)
[2024-06-14 00:43] LABS: Glucose, Whole Blood 57 mg/dL (60-115)
[2024-06-14] MEDS: Prochlorperazine Edisylate 10 MG/2 ML VIAL IVPUSH (01:36)
[2024-06-14] MEDS: KCl 40 mEq in 0.9 % Sodium Chl 40 MEQ/1,000 ML IV.SOLN 200 MEQ IVCONT (01:42)
[2024-06-14 03:05] VITALS: BP 109/66; PULSE 90; RESP 16; TEMP 36.6; O2SAT 99
--- NOTE | 2024-06-14 03:14 | PC.NURSE ---
Addendum entered by Cornelia Mendoza RN 06/14/24 03:21: 0300 blood sugar rechecked was 67. pt states good effect from compazine. Original Note: 2334 pt c/o nausea medicated with zofran 4mg IV pt also c/o of feeling off and wanted her blood sugar checked because it has been running low.Her blood sugar was 58 she was only able to tolerate 1 cup of apple juice and blood sugar was checked at 0030 was 57. was notified and pt medicated with compazine 10mg IV and IV fluids NS with 40meq kcl at 200/hr x 1 liter ordered.
[2024-06-14 03:16] LABS: Glucose, Whole Blood 67 mg/dL (60-115)
[2024-06-14] MEDS: Omeprazole 40 MG CAPSULE.DR PO (05:42)
[2024-06-14] MEDS: 0.9 % Sodium Chloride Flush 3 ML SYRINGE IVFLUSH ×3 (06:50→23:15)
[2024-06-14] MEDS: Capsaicin 0.025% Cream 60 GM TUBE 1 APPL TOPICAL (06:53)
[2024-06-14 07:11] LABS: Glucose, Whole Blood 67 mg/dL (60-115)
[2024-06-14 07:13] VITALS: BP 120/75; PULSE 75; RESP 16; TEMP 36.6; O2SAT 97
[2024-06-14] MEDS: Meclizine HCl 25 MG TABLET PO (08:05)
[2024-06-14] MEDS: ondansetron HCL 4 MG/2 ML VIAL IVPUSH (08:05)
--- NOTE | 2024-06-14 08:06 | P.PNIM_ITS ---
Subjective Subjective Date of Service: 06/14/24 Interval History: Seen in follow-up for nausea/vomiting and intractable vertigo Interval history: Patient reports persistent vertigo with head movement as well as ambulation/change in position though she is able to ambulate. She has been vomiting with Myriam maneuver. Further discussed symptoms with patient. She states she had an isolated episode of diarrhea on and has not had a bowel movement since. Her primary symptoms were nausea and vomiting which she states have occurred in the past related to her menstrual cycle. She has been tolerating p.o. and has been intermittently hypoglycemic to 47. Reports most recent hemoglobin A1c was 5.2%. She is also reporting flashes of light in the periphery of the left eye but denies any ocular pain or blurred vision. No pain with eye movements. Review of Systems Review of Systems: Yes all other systems are reviewed and are negative Physical Exam 2 Vital Signs: Vital Signs: Last Vital Signs Temp 97.9 F 06/14/24 07:13 Pulse 75 06/14/24 07:13 Resp 16 06/14/24 07:13 BP 120/75 06/14/24 07:13 Pulse Ox 97 06/14/24 07:13 O2 Del Method Room Air 06/14/24 07:13 BMI result Body Mass Index 21.1 Constitutional - Awake and Alert, No apparent distress Eyes - PERRLA, EOMI Cardiovascular - S1S2, RRR, No edema Respiratory - Normal lung expansion, Normal respiratory effort, No respiratory distress, CTA bilaterally Gastrointestinal - NT / ND; +BS; No rebound or guarding Extremities - no calf tenderness bilaterally, no swelling Skin - Warm/Dry Neurological - Alert & oriented x3, + L sided [place], CN otherwise in tact, 5/5 strength BUE and BLE Psychological - Appropriate affect Neuro: Other: She is alert and awake with normal spontaneity of speech fluency comprehension and affect. When I arrived, she was retching and vomiting some saliva. Speech was normal. Pupils were equal and reactive to light. No definite nystagmus was noted. Face was symmetrical. Uvaikf-vs-tpgn testing was normal. Deep tendon reflexes were 1 to 2+ with flexor plantars. She was able to get up and walk around with no significant difficulty. She had difficulty doing tandem gait. Objective Data Active Medications Acetaminophen (Acetaminophen 325 Mg Tablet) 650 mg PO Q6H PRN PRN Reason: Pain, Mild 1-3,fever,headache Last Admin: 06/12/24 18:33 Dose: 650 mg Documented By: LAUREANO Calcium Carbonate (Calcium Carbonate 750 Mg Tab.Chew) 750 mg PO Q4H PRN PRN Reason: Heartburn Capsaicin (Capsaicin 0.025% Cream 60 Gm Tube) 1 appl TOPICAL QID PRN; Protocol PRN Reason: epigastric pain/nausea/vomitin Last Admin: 06/14/24 06:53 Dose: 1 appl Documented By: COLLETTE Enoxaparin Sodium (Enoxaparin Sodium 40 Mg/0.4 Ml Syringe) 40 mg SUBCUT Q24H [facility] Last Admin: 06/13/24 23:22 Dose: 40 mg Documented By: MELA Magnesium Hydroxide (Milk Of Magnesia 30 Ml Oral.Susp) 30 ml PO DAILY PRN PRN Reason: Constipation Meclizine HCl (Meclizine Hcl 25 Mg Tablet) 25 mg PO Q6H PRN PRN Reason: dizziness Last Admin: 06/13/24 10:43 Dose: 25 mg Documented By: COLLETTE Melatonin (Melatonin 3 Mg Tablet) 6 mg PO BEDTIME PRN PRN Reason: Insomnia Omeprazole (Omeprazole 40 Mg Capsule.Dr) 40 mg PO DAILY@0630 [facility] Last Admin: 06/14/24 05:42 Dose: 40 mg Documented By: MELA Ondansetron HCl (Ondansetron Hcl 4 Mg/2 Ml Vial) 4 mg IVPUSH Q8H PRN PRN Reason: Nausea and Vomiting Last Admin: 06/13/24 23:22 Dose: 4 mg Documented By: MELA Sodium Chloride (0.9 % Sodium Chloride Flush 3 Ml Syringe) 3 ml IVFLUSH QSHIFT [facility] Last Admin: 06/14/24 06:50 Dose: 3 ml Documented By: COLLETTE Labs 06/11/24 10:16 06/14/24 08:08 Labs: Laboratory Results - last 24 hr 06/13/24 06/13/24 06/14/24 08:45 23:32 00:39 VBG pH 7.36 VBG pCO2 39 VBG pO2 32 VBG HCO3 22 VBG O2 Saturation 55.0 VBG Base Excess -2.1 POC Glucose 58 L* 57 L* 06/14/24 06/14/24 03:09 07:06 VBG pH VBG pCO2 VBG pO2 VBG HCO3 VBG O2 Saturation VBG Base Excess POC Glucose 67 67 Microbiology Microbiology Results: Microbiology 06/12/24 Unknown Urine Culture - Preliminary Urine clean catch - Clean Catch Midstream Culture too young to evaluate. Assessment and Plan (1) Nausea and vomiting: Status: Acute (2) Dizziness: Status: Acute Plan 24-year-old female, not on prescription medications who presents to the emergency department for evaluation of nausea and vomiting. #Intractable nausea and vomiting -possibly related to cannabis use (uses nightly to relax) vs r/t endometirosis given symptoms often coincide with menstrual cycle vs possible MS versus viral -Tolerating diet advancement. Will dc fluids -Supportive care and symptomatic treatment -antiemetics p.r.n. -CT abdomen/pelvis on 06/09 without any acute abnormality. Abdominal ultrasound without any acute abnormality. -continue prn capsaicin -recommend discontinuation of marijuana. Follow-up with OBGYN regarding endometriosis. See below #Persistent vertigo/tinnitus -Orthostatic VS negative -Meclizine ordered with no effect -continue ivf -PT eval for myriam maneuver- not tolerated with vomiting. Meniere's disease however no hearing loss -MRI of the brain which shows evidence of demyelinating disease. Given persistent vertigo with nausea/vomiting that seems to historically coincide with her menstrual cycle, hypoglycemia, flashes of light in the left peripheral vision and history of paresthesias and eye pain concern for MS -neurology input appreciated- LP ordered with CSF glucose, protein, cells, oligoclonal bands, and Gram stain culture. Also ordered Lyme serology, syphilis serology, HIV test, sed rate, double-stranded DNA titer and NORM. MRI brain with and without contrast as well as MRI of the cervical spine with and without contrast ordered -per neurology initiate 500 mg IV Solu-Medrol daily x3 days. Continue ondansetron #. Gastroesophageal reflux disease: On PPI DVT prophylaxis: Lovenox Full code Pt requires inpt stay at least 2 midnights due to limited PO intolerance, significant nausea requiring IV antiemetics and persisting positional lightheadness resulting in gait instability now on high-dose steroids for possible MS requiring further investigation with LP and MRI Quality Stroke Does the patient have a stroke diagnosis?: No VTE Prior VTE?: No VTE Risk Level:: Medical - moderate - high VTE Device Contraindication: Treatment Not Indicated VTE Drug Contraindication: N/A - Med Ordered
--- NOTE | 2024-06-14 08:52 | PM.NEUROCN ---
History of Present Illness Data of Consult Service Date: 06/14/24 Primary Care Provider: Derek Dia PA-C HPI Reason for consult: Intractable dizziness 24 years old woman not known to have diabetes or hypertension, smoking marijuana on regular basis, came to hospital for intractable dizziness comprising of nausea and vomiting. Apparently she came to hospital few days prior with dizziness and was prescribed Zofran. On the night of coming back to hospital, she woke up with abdominal discomfort nausea and vomiting and also had diarrhea. She was not febrile and stated that there was no cold or flu-like illness with her or anybody in the house. She has been treated with antiemetic but has not been responding. There was no associated visual symptom or any other neurological symptom. Review of Systems Review of Systems: No recent cold or flu-like symptom. She denied any ear pressure change in her hearing or ear pain. [facility] Past Medical History Medical History Rathke's cleft cyst Anxiety GERD (gastroesophageal reflux disease) Nausea Headache Family History Family History Father Heart problem Osteoarthritis Mother Mood disorder Depression Chronic mental illness Maternal Grandmother Lymphoma History of breast cancer Other Substance use disorder Surgical History Surgical History History of placement of ear tubes Social History Social History Household Members: Family Household Members Other:: Mother Housing: Apartment Do you presently have visiting nurse or other home services: No Alcohol intake: never Patient Tobacco Use Status: Never used Tobacco e-Cigarette/Vaping Use: Never Used Second Hand Smoke Exposure: No Substance Use Type: Marijuana service: No 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al status: employed 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 Cognitive needs: No Hearing needs: No Vision needs: Yes (Glasses) Meds Allergies Allergy/AdvReac Type Severity Reaction Status Date / Time seasonal Allergy Unknown sneezing, Uncoded 06/10/24 16:58 stuffy nose Active Medications: Current Medications Acetaminophen (Acetaminophen 325 Mg Tablet) 650 mg PO Q6H PRN PRN Reason: Pain, Mild 1-3,fever,headache Last Admin: 06/12/24 18:33 Dose: 650 mg Calcium Carbonate (Calcium Carbonate 750 Mg Tab.Chew) 750 mg PO Q4H PRN PRN Reason: Heartburn Capsaicin (Capsaicin 0.025% Cream 60 Gm Tube) 1 appl TOPICAL QID PRN; Protocol PRN Reason: epigastric pain/nausea/vomitin Last Admin: 06/14/24 06:53 Dose: 1 appl Enoxaparin Sodium (Enoxaparin Sodium 40 Mg/0.4 Ml Syringe) 40 mg SUBCUT Q24H [facility] Last Admin: 06/13/24 23:22 Dose: 40 mg Methylprednisolone Sodium Succinate 500 mg/ Sodium Chloride 50 mls @ 50 mls/hr IV DAILY [facility] Stop: 06/16/24 09:59 Magnesium Hydroxide (Milk Of Magnesia 30 Ml Oral.Susp) 30 ml PO DAILY PRN PRN Reason: Constipation Meclizine HCl (Meclizine Hcl 25 Mg Tablet) 25 mg PO Q6H PRN PRN Reason: dizziness Last Admin: 06/14/24 08:05 Dose: 25 mg Melatonin (Melatonin 3 Mg Tablet) 6 mg PO BEDTIME PRN PRN Reason: Insomnia Omeprazole (Omeprazole 40 Mg Capsule.Dr) 40 mg PO DAILY@0630 [facility] Last Admin: 06/14/24 05:42 Dose: 40 mg Ondansetron HCl (Ondansetron Hcl 4 Mg/2 Ml Vial) 4 mg IVPUSH Q8H PRN PRN Reason: Nausea and Vomiting Last Admin: 06/14/24 08:05 Dose: 4 mg Sodium Chloride (0.9 % Sodium Chloride Flush 3 Ml Syringe) [address] [facility] Last Admin: 06/14/24 06:50 Dose: 3 ml Home Medications ?Medication ?Instructions ?Recorded ?Confirmed ?Last Taken ?Type ibuprofen 200 mg tablet 400 mg PO Q6H PRN cramps/pain 06/11/24 06/11/24 Unknown History Physical Exam Vital Signs: Vital Signs: Last Vital Signs Temp 97.9 F 06/14/24 07:13 Pulse 75 06/14/24 07:13 Resp 16 06/14/24 07:13 BP 120/75 06/14/24 07:13 Pulse Ox 97 06/14/24 07:13 O2 Del Method Room Air 06/14/24 07:13 BMI result Body Mass Index 21.1 Neuro: Other: She is alert and awake with normal spontaneity of speech fluency comprehension and affect. When I arrived, she was retching and vomiting some saliva. Speech was normal. Pupils were equal and reactive to light. No definite nystagmus was noted. Face was symmetrical. Fdntnh-st-gabj testing was normal. Deep tendon reflexes were 1 to 2+ with flexor plantars. She was able to get up and walk around with no significant difficulty. She had difficulty doing tandem gait. Results Labs 06/11/24 10:16 06/13/24 05:49 Labs: MRI of brain without contrast revealed numerous white matter lesion suggestive of demyelinating disease. Microbiology Microbiology Results: Microbiology 06/12/24 Unknown Urine clean catch - Clean Catch Midstream Urine Culture - Preliminary Culture too young to evaluate. 06/11/24 Unknown Urine clean catch - Clean Catch Midstream Urine Culture - Final Assessment and Plan (1) Dizziness: Status: Acute 24 years old woman with intractable dizziness comprised of nausea and vomiting associated with an abnormal brain MRI suggestive of chronic demyelinating type disease. A recent viral illness might have contributed to her symptomatology but her underlying brain pathology is also significant, which could also result in intractable vomiting. On the other hand I do not see any obvious lesion associated to this type of presentation. My recommendation is to obtain MRI of brain with contrast, MRI of cervical spine with and without contrast, lumbar puncture to perform CSF glucose, protein, cells, oligoclonal bands, and g stain culture. Also, send for Lyme serology, syphilis serology, HIV test, sed rate, double-stranded DNA titer, and NORM. Consider treatment with Solu-Medrol 500 mg IV a day for 3 days with p.r.n. antiemetic. She is advised to not use cannabis. Procedures Date of Service Date of Service: 06/14/24
[2024-06-14 09:46] LABS: Anion Gap 13 (12-20); Blood Urea Nitrogen 3 mg/dL (9-16); Calcium 8.7 mg/dL (8.4-10.2); Carbon Dioxide 20 mmol/L (22-29); Chloride 110 mmol/L (96-108); Creatinine Clr Calc Pharmacy 137.2; Estimated Glomerular Filt Rate > 60; Glucose Random 86 mg/dL (60-115); Potassium 3.9 mmol/L (3.3-5.1); Sodium 139 mmol/L (135-145)
[2024-06-14] MEDS: methylPREDNISolone Sod Succ 500 MG in 0.9 % Sodium Chloride 50 ML 50 MG IV (11:04)
[2024-06-14] MEDS: iohexoL 350 MG/ML 100 ML INFUS..BTL IV (11:46)
[2024-06-14] MEDS: gadobutroL 7.5 ML VIAL IVPUSH (12:48)
--- NOTE | 2024-06-14 13:12 | P.CDIM_ITS ---
PROVIDER RESPONSE TEXT: To clarify, the appropriate diagnosis supported by the clinical indicators: Hypokalemia: resolved QUERY TEXT: PHYSICIAN'S DOCUMENTATION REQUEST Date of Query: 06/14/2024 12:14 PM EST Patient Name: Ashley Wick Admit Date: 06/11/2024 Dear Kari WARREN, A review of the medical record indicates additional documentation may be needed. Please review below and update the documentation accordingly. Clinical Indicators: LABS: potassium 3.1 3.9 Potassium Chloride Nausea/vomiting/diarrhea/PO intolerance Based on the above, could you clarify if there is a diagnosis that correlates with the above lab find ings: Hypokalemia resolved, possible, probable Labs indicate a diagnosis of (please specify) Other (explain) Clinically unable to determine (explain) Thank you, Susan Kaur, CCS, CDIS Use of terms such as suspected, likely, concern for, or probable (associated with a specific diagnosi s that is being evaluated, monitored, or treated as if it exists) are acceptable and can be coded in the inpatient se tting, when documented at the time of discharge. Please use your independent medical judgment in providing your response. THIS QUERY IS PART OF THE PERMANENT MEDICAL RECORD
[2024-06-14] MEDS: LORazepam 2 MG/ML VIAL 0.5 MG IVPUSH (13:23)
--- NOTE | 2024-06-14 14:59 | PM.PROC ---
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 Opening pressure 16 cm H2O. No immediate complications.
[2024-06-14 15:02] VITALS: BP 119/75; PULSE 71; RESP 20; TEMP 36.1; O2SAT 98
[2024-06-14 15:42] LABS: Erythrocyte Sedimentation Rate 2 MM/HR (0-20)
[2024-06-14 15:43] LABS: CSF Appearance Clear, Colorless; CSF Tube # 2
--- NOTE | 2024-06-14 15:57 | MHC.CM.PN ---
PER ROUNDS PT NOT MEDICALLY READY FOR DC
[2024-06-14 16:08] LABS: Glucose CSF 48 mg/dL
[2024-06-14 17:35] LABS: Appearance CSF CLEAR
[2024-06-14 17:36] LABS: CSF Tube # 4; Color CSF COLORLESS; Red Blood Cell CSF 2 MM*3; White Blood Cell CSF 0 MM*3
[2024-06-14 19:13] VITALS: BP 124/76; PULSE 75; RESP 20; TEMP 36.3; O2SAT 99
[2024-06-14] MEDS: Enoxaparin Sodium 40 MG/0.4 ML SYRINGE SUBCUT (23:14)
[2024-06-15 03:26] VITALS: BP 110/61; PULSE 63; RESP 16; TEMP 36.6; O2SAT 98
[2024-06-15] MEDS: Omeprazole 40 MG CAPSULE.DR PO (05:55)
[2024-06-15] MEDS: 0.9 % Sodium Chloride Flush 3 ML SYRINGE IVFLUSH ×3 (07:08→19:13)
[2024-06-15 07:39] VITALS: BP 108/61; PULSE 69; RESP 18; TEMP 36.4; O2SAT 98
[2024-06-15] MEDS: methylPREDNISolone Sod Succ 500 MG in 0.9 % Sodium Chloride 50 ML 50 MG IV (08:35)
[2024-06-15 08:40] LABS: Syphilis Screen Nonreactive (Nonreactive)
[2024-06-15 08:45] LABS: HIV AB/AG Nonreactive (Nonreactive); HIV Num 1 0.07 S/CO (0.00-0.99)
--- NOTE | 2024-06-15 09:48 | P.PNIM_ITS ---
Subjective Subjective Date of Service: 06/15/24 Interval History: seen and examined this morning follow up for likely new dx of MS dizziness improving Constitutional Constitutional: Denies chills and Denies fever(s) ENT Ears, Nose, Mouth, and Throat: Reports dizziness Cardiovascular Cardiovascular: Denies chest pain and Denies dyspnea Respiratory Respiratory: Denies dyspnea Gastrointestinal Gastrointestinal: Denies abdominal pain Neurologic Neurologic: Reports dizziness Physical Exam 2 Vital Signs: Vital Signs: Last Vital Signs Temp 97.6 F 06/15/24 07:39 Pulse 69 06/15/24 07:39 Resp 18 06/15/24 07:39 BP 108/61 06/15/24 07:39 Pulse Ox 98 06/15/24 07:39 O2 Del Method Room Air 06/15/24 07:39 BMI result Body Mass Index 21.1 Const: General: cooperative, comfortable, no acute distress, alert and awake Nutritional Appearance: average body habitus Orientation/consciousness: p atient oriented x3 Resp: Effort & Inspection: normal respiratory effort, able to speak in complete sentences, no respiratory distress and no use of accessory muscles Neuro: General: patient oriented x3, moves all extremities and CN's II-XI intact bilaterally Objective Data Active Medications Acetaminophen (Acetaminophen 325 Mg Tablet) 650 mg PO Q6H PRN PRN Reason: Pain, Mild 1-3,fever,headache Last Admin: 06/12/24 18:33 Dose: 650 mg Documented By: LAUREANO Calcium Carbonate (Calcium Carbonate 750 Mg Tab.Chew) 750 mg PO Q4H PRN PRN Reason: Heartburn Capsaicin (Capsaicin 0.025% Cream 60 Gm Tube) 1 appl TOPICAL QID PRN; Protocol PRN Reason: epigastric pain/nausea/vomitin Last Admin: 06/14/24 06:53 Dose: 1 appl Documented By: COLLETTE Enoxaparin Sodium (Enoxaparin Sodium 40 Mg/0.4 Ml Syringe) 40 mg SUBCUT Q24H [facility] Last Admin: 06/14/24 23:14 Dose: 40 mg Documented By: MELA Methylprednisolone Sodium Succinate 500 mg/ Sodium Chloride 50 mls @ 50 mls/hr IV DAILY MITZY Stop: 06/16/24 09:59 Last Infusion: 06/15/24 09:35 Dose: Infused Documented By: COLLETTE Lorazepam (Lorazepam 2 Mg/Ml Vial) 0.5 mg IVPUSH Q6H PRN PRN Reason: Anxiety Last Admin: 06/14/24 13:23 Dose: 0.5 mg Documented By: COLLETTE Magnesium Hydroxide (Milk Of Magnesia 30 Ml Oral.Susp) 30 ml PO DAILY PRN PRN Reason: Constipation Meclizine HCl (Meclizine Hcl 25 Mg Tablet) 25 mg PO Q6H PRN PRN Reason: dizziness Last Admin: 06/14/24 08:05 Dose: 25 mg Documented By: COLLETTE Melatonin (Melatonin 3 Mg Tablet) 6 mg PO BEDTIME PRN PRN Reason: Insomnia Omeprazole (Omeprazole 40 Mg Capsule.Dr) 40 mg PO DAILY@0630 [facility] Last Admin: 06/15/24 05:55 Dose: 40 mg Documented By: MELA Ondansetron HCl (Ondansetron Hcl 4 Mg/2 Ml Vial) 4 mg IVPUSH Q8H PRN PRN Reason: Nausea and Vomiting Last Admin: 06/14/24 08:05 Dose: 4 mg Documented By: COLLETTE Sodium Chloride (0.9 % Sodium Chloride Flush 3 Ml Syringe) 3 ml IVFLUSH QSHIFT [facility] Last Admin: 06/15/24 07:08 Dose: 3 ml Documented By: COLLETTE Labs 06/11/24 10:16 06/14/24 08:08 Labs: Laboratory Results - last 24 hr 06/14/24 06/14/24 06/14/24 13:46 13:46 13:46 ESR CSF Tube Number 2 Cancelled 4 CSF Volume 2.0 CSF Appearance CLEAR CSF Color COLORLESS CSF WBC 0 CSF RBC 2 CSF Appearance (b) Clear, Colorless CSF Glucose CSF Total Protein T.pallidum Ab (EIA) HIV 1&2 Ab/P24 Ag 4thGn 06/14/24 06/14/24 06/14/24 13:46 13:46 14:32 ESR CSF Tube Number CSF Volume CSF Appearance CSF Color CSF WBC CSF RBC CSF Appearance (b) Cancelled CSF Glucose 48 CSF Total Protein 53.0 H Cancelled T.pallidum Ab (EIA) Nonreactive HIV 1&2 Ab/P24 Ag 4thGn Nonreactive 06/14/24 14:33 ESR 2 CSF Tube Number CSF Volume CSF Appearance CSF Color CSF WBC CSF RBC CSF Appearance (b) CSF Glucose CSF Total Protein T.pallidum Ab (EIA) HIV 1&2 Ab/P24 Ag 4thGn Microbiology Microbiology Results: Microbiology 06/14/24 13:46 Gram Stain - Final Cerebrospinal Fluid CSF Examination - Final Fluid Description - Final CSF Culture - Preliminary No growth after 1 day 06/12/24 Unknown Urine Culture - Final Urine clean catch - Clean Catch Midstream Assessment and Plan (1) Dizziness: Status: Acute Plan This is a 24-year-old female who presents to the emergency department for evaluation of nausea and vomiting found to have white matter changes on imaging concerning for new diagnosis of MS Intractable nausea and vomiting with associated dizziness initially thought due to cannabis use vs endometirosis (sx often coincide w/menstrual cycle) vs BPPV/viral however given persistent severe symptoms brain imaging obtained which showed CT abdomen/pelvis on 06/09 without any acute abnormality. Abdominal ultrasound without any acute abnormality. recommend discontinuation of marijuana. Follow-up with OBGYN regarding endometriosis. See below Persistent vertigo/tinnitus Orthostatic VS negative, Meclizine ineffective PT eval for myriam maneuver- not tolerated with vomiting MRI of the brain w/ demyelinating disease concerning for MS seen by neurology LP obtained, protein elevated, gram stain negative, culture no growth to date; remainder of labs pending including oligoclonal bands, Lyme serology, double- stranded DNA titer and NORM syphilis, HIV negative continue 500 mg IV Solu-Medrol daily x3 days, on day 2/3 symptomatic support GERD continue PPI DVT prophylaxis: Lovenox Full code Pt requires ongoing inpatient stay due to significant nausea requiring IV antiemetics and persisting positional lightheadness resulting in gait instability now on high-dose steroids for possible MS requiring further investigation with LP and MRI Quality Stroke Does the patient have a stroke diagnosis?: No VTE Prior VTE?: No VTE Risk Level:: Medical - moderate - high VTE Device Contraindication: Treatment Not Indicated VTE Drug Contraindication: N/A - Med Ordered
[2024-06-15] MEDS: Acetaminophen 325 MG TABLET 650 MG PO (11:35)
[2024-06-15] MEDS: ondansetron HCL 4 MG/2 ML VIAL IVPUSH (11:35)
[2024-06-15 14:09] LABS: ANAchoice Screen NEGATIVE (NEGATIVE)
[2024-06-15 14:29] LABS: Oligoclonal Serum Yes
[2024-06-15 15:17] VITALS: BP 111/74; PULSE 62; RESP 18; TEMP 36.3; O2SAT 97
[2024-06-15] MEDS: Milk of Magnesia 30 ML ORAL.SUSP PO (15:20)
[2024-06-15 17:27] LABS: Lyme Abs Screen <0.90 index
[2024-06-15 23:55] VITALS: BP 109/63; PULSE 63; RESP 17; TEMP 36.3; O2SAT 97
[2024-06-16] MEDS: Enoxaparin Sodium 40 MG/0.4 ML SYRINGE SUBCUT (00:53)
[2024-06-16] MEDS: Omeprazole 40 MG CAPSULE.DR PO (05:55)
[2024-06-16 07:33] VITALS: BP 113/60; PULSE 60; RESP 17; TEMP 36.6; O2SAT 99
[2024-06-16] MEDS: methylPREDNISolone Sod Succ 500 MG in 0.9 % Sodium Chloride 50 ML 50 MG IV (08:30)
[2024-06-16] MEDS: 0.9 % Sodium Chloride Flush 3 ML SYRINGE IVFLUSH (08:30)
--- NOTE | 2024-06-16 09:19 | PM.DS ---
DS: Providers Provider Date of Service: 06/16/24 Date of admission: 06/11/24 00:45 Date of discharge: 06/16/24 Primary care physician: Derek Dia PA-C Consults: 06/13/24 13:55 Consult to Neurology Routine Consulting Provider: [facility] Reason for consultation: persistent vertigo nonrepsonsive to meclizine- concern for ms Attending physician on discharge: Prashanth Jessica Discharging clinician: Luz Bar DS: Diagnosis Discharge Diagnosis (1) Dizziness: Status: Acute DS: Summary Hospital Course Hospital Course: From H&P on the day of admission This is a 24-year-old female, not on prescription medications who presents to the emergency department for evaluation of nausea and vomiting. Patient was seen in the ER on 06/09 and discharged home with ondansetron. Patient states her nausea and vomiting have continued and she is unable to tolerate p.o. intake. Also has been having epigastric discomfort which is intermittent and unrelated to food intake. No symptoms of gastroesophageal reflux disease. Patient states she was also having diarrhea for the last 2 days but has stopped on the day of presentation. Endorses smoking marijuana every day. No dysuria, increased urinary frequency or urgency. No vaginal discharge. Patient thinks her symptoms are due to endometriosis but states she has never been diagnosed with endometriosis before. No fever, chills, chest pain, palpitations, shortness of breath, changes in urinary or bowel habits. In the emergency department, patient unable to tolerate p.o. intake and with continued nausea and vomiting. Intractable nausea and vomiting with associated dizziness initially thought due to cannabis use vs endometirosis (sx often coincide w/menstrual cycle) vs BPPV/viral however given persistent severe symptoms brain imaging obtained which showed concern for MS CT abdomen/pelvis on 06/09 without any acute abnormality. Abdominal ultrasound without any acute abnormality. recommend discontinuation of marijuana. Follow-up with OBGYN regarding endometriosis. See below Persistent vertigo/tinnitus Orthostatic VS negative, Meclizine ineffective. PT eval for myriam maneuver- not tolerated with vomiting MRI of the brain w/ demyelinating disease concerning for MS. seen by neurology who recommended 3 days of high-dose IV Solu-Medrol which she completed during her hospital stay. LP obtained, protein elevated, gram stain negative, culture no growth to date; remainder of labs pending including oligoclonal bands, Lyme serology, double-stranded DNA titer and NORM. syphilis, HIV negative Dizziness has not improved somewhat, physical therapy recommends outpatient physical therapy Time Attestation Discharge Coordination Time (in mins): 36 Quality: Safe Use of Opioids Does Pt have an Active Cancer Diagnosis on the Problem List?: No Quality: Stroke Does the patient have a stroke diagnosis?: No Physical Exam Vital Signs: Vital Signs: Last Vital Signs Temp 97.8 F 06/16/24 07:33 Pulse 60 06/16/24 07:33 Resp 17 06/16/24 07:33 BP 113/60 06/16/24 07:33 Pulse Ox 99 06/16/24 07:33 O2 Del Method Room Air 06/16/24 07:33 BMI result Body Mass Index 21.1 Const: General: cooperative, comfortable, no acute distress, alert and awake Nutritional Appearance: average body habitus Orientation/consciousness: patient oriented x3 Resp: Effort & Inspection: normal respiratory effort, able to speak in complete sentences, no respiratory distress and no use of accessory muscles Neuro: General: patient oriented x3, moves all extremities and CN's II-XI intact bilaterally DS: Data Data Completed and Pending Labs on day of discharge: Laboratory Results - last 24 hr 06/14/24 14:32 Autoimmune Screen NEGATIVE Lyme Screen IgG & IgM <0.90 Preliminary micro results at discharge 06/14/24 13:46 CSF Culture - Preliminary Cerebrospinal Fluid No growth after 1 day Discharge Plan Discharge Anticipated Discharge Date/Time: 06/16/24 09:50 Patient Disposition: Home, Self-Care Discharge Diagnosis: nausea and vomiting dizziness abnormal imaging concerning for MS Referrals: Derek Dia PA-C [Primary Care Provider] - Taryn Johnson MD [Physician] - 1 Week Discharge Medications: New ondansetron 4 mg tablet,disintegrating 4 mg PO Q8H PRN (Reason: nausea and vomiting) Qty: 20 0RF Continued ibuprofen 200 mg Tablet 400 mg PO Q6H PRN (Reason: cramps/pain) Discharge Orders: Discharge Order (Routine); Ordered 06/16/24 Ordered By: Luz Bar Activity on Discharge: As tolerated Stand Alone Forms: Patient Portal Discharge page Print Language: Sinhala Care Plan Goals: see below Health Concerns: dizziness concern for MS Plan of Treatment: recommend follow up with neurology to review results of lumbar puncture and further management recommendations Call to schedule follow-up appointment with PCP outpatient PT recommended Assessment: see discharge summary
[2024-06-16] MEDS: Acetaminophen 325 MG TABLET 650 MG PO (10:28)
[2024-06-16] MEDS: ondansetron HCL 4 MG/2 ML VIAL IVPUSH (10:38)
--- NOTE | 2024-06-16 10:44 | MHC.CM.PN ---
pt dcd home self care
[2024-06-20 17:44] LABS: Oligoclonal Banding Present (Absent)
[2024-06-20 22:42] LABS: Lyme IgG CSF Immunoblot NO BANDS DETECTED; Lyme IgM CSF Immunoblot NO BANDS DETECTED
== END 2024-06-16 11:22 | disposition home or self-care (01) | DRG 43 ==
LOC: HO.ED 21:46 → HO.EDOVER 06-11 07:27 → HO.S3 06-13 07:34
PROVIDERS: Physician Assistant; Admitting Provider Student in an Organized Health Care Education/Training Program; Emergency Provider Emergency Medicine; PCP Physician Assistant; Visit Provider Physician Assistant Medical
DX: G35 Multiple sclerosis (principal); E16.2 Hypoglycemia, unspecified; K21.9 Gastro-esophageal reflux disease without esophagitis; R42 Dizziness and giddiness; H93.19 Tinnitus, unspecified ear; R11.2 Nausea with vomiting, unspecified; F12.90 Cannabis use, unspecified, uncomplicated; Z20.822 Contact with and (suspected) exposure to COVID-19
CPT/HCPCS: 0241U; 36415; 62328; 70450; 70470; 70551; 70552; 72156; 76705; 80048; 80076; 80307; 81001; 82803; 82945; 82947; 83690; 83735; 83916; 84157; 84166; 84702; 85025; 85652; 86038; 86225; 86617; 86618; 86780; 87015; 87070; 87086; 87205; 87389; 89051; 95992; 97116; 97161; 99285; A9585; J0737; J1650; J1790; J1885; J2060; J2405; J2919; J3480; J7120; Q9967

== ENCOUNTER → 2024-06-10 22:55 | Outpatient (BNV) | payer OTHER, SELFPAY | PROVIDERS: Admitting Provider Student in an Organized Health Care Education/Training Program; Emergency Provider Emergency Medicine; PCP Physician Assistant; Visit Provider Radiology Diagnostic Radiology | DX: R10.9 Unspecified abdominal pain (principal); R11.0 Nausea | CPT/HCPCS: 76705 ==

== ENCOUNTER 2024-06-11 00:45 | Outpatient (BNV) | payer OTHER, SELFPAY | END 2024-06-14 10:56 | PROVIDERS: Admitting Provider Student in an Organized Health Care Education/Training Program; Emergency Provider Emergency Medicine; PCP Physician Assistant; Visit Provider Radiology Diagnostic Radiology | DX: E23.6 Other disorders of pituitary gland (principal); D33.0 Benign neoplasm of brain, supratentorial; R90.82 White matter disease, unspecified; R42 Dizziness and giddiness | CPT/HCPCS: 62328; 70470; 70552; 72156 ==

== ENCOUNTER 2024-06-11 00:45 | Outpatient (BNV) | payer OTHER, SELFPAY | END 2024-06-13 15:30 | PROVIDERS: Admitting Provider Student in an Organized Health Care Education/Training Program; Emergency Provider Emergency Medicine; PCP Physician Assistant; Visit Provider Radiology Diagnostic Radiology | DX: R42 Dizziness and giddiness (principal); G37.9 Demyelinating disease of central nervous system, unspecified | CPT/HCPCS: 70450; 70551 ==

== ENCOUNTER → 2024-06-11 00:45 | Outpatient (BNV) | payer OTHER, SELFPAY | PROVIDERS: Admitting Provider Student in an Organized Health Care Education/Training Program; Emergency Provider Emergency Medicine; PCP Physician Assistant; Visit Provider Student in an Organized Health Care Education/Training Program | DX: R42 Dizziness and giddiness (principal); R11.2 Nausea with vomiting, unspecified | CPT/HCPCS: 99222; 99232; 99239; 99499 ==

== ENCOUNTER → 2024-06-11 00:45 | Outpatient (BNV) | payer OTHER, SELFPAY | PROVIDERS: Admitting Provider Student in an Organized Health Care Education/Training Program; Emergency Provider Emergency Medicine; PCP Physician Assistant; Visit Provider Psychiatry & Neurology Neurology | DX: R42 Dizziness and giddiness (principal) | CPT/HCPCS: 99223 ==

== ENCOUNTER 2024-06-20 11:46 | Emergency (ER) | payer OTHER, SELFPAY ==
--- NOTE | ~2024-06-20 | XR_ITS ---
CLINICAL HISTORY: pain 1 view abdomen Comparison: US - US ABDOMEN LIMITED - 06/10/24 22:[address]/[place] - CT ABDOMEN PELVIS W IV CON - 06/09/24 08:24 EST Findings: No abnormal bowel dilation to suggest obstruction. No abnormal calcifications. No acute fractures. IMPRESSION: No evidence of bowel obstruction. This document has been electronically signed by: Barrett March DO on 06/20/2024 18:18:43
[2024-06-20 12:22] VITALS: BP 132/75; PULSE 75; RESP 18; TEMP 36.9; O2SAT 100; BMI 19.9
--- NOTE | 2024-06-20 12:22 | ED.GENADULT ---
HPI - General Adult General Chief complaint: Abdominal Pain Stated complaint: Nausea, vomiting, headache Time Seen by Provider: 06/20/24 16:55 Source: patient Limitations: no limitations History of Present Illness ED Provider: Marie Apple PA-C HPI narrative: 24-year-old female who is currently amidst assessment to determine if she has MS versus refractory vertigo, who presents with ongoing nausea vomiting. Patient states she continues to have upper abdominal discomfort, and she is unable to tolerate oral intake. Patient states she has been struggling with constipation, her last bowel movement was Wednesday. Denies abdominal distention or inability to pass flatus. Patient states she was just discharged from the hospital on June 16, her symptoms were improved over the weekend, however she woke this morning with nausea vomiting and abdominal discomfort. During her hospital course, she had a negative CT abdomen and pelvis and abdominal ultrasound, she had an MRI of the brain which was concerning for early signs of MS, she had a lumbar puncture, she currently is pending laboratory studies. She has pending follow up with Neurology. Related Data Home Medications ?Medication ?Instructions ?Recorded ?Confirmed ibuprofen 200 mg tablet 400 mg PO Q6H PRN cramps/pain 06/11/24 06/11/24 Previous Rx's ?Medication ?Instructions ?Recorded ondansetron 4 mg disintegrating 4 mg PO Q8H PRN nausea and 06/16/24 tablet vomiting #20 tabs metoclopramide HCl 10 mg tablet 10 mg PO Q6H PRN nausea and 06/20/24 vomiting #16 tabs Allergies Allergy/AdvReac Type Severity Reaction Status Date / Time seasonal Allergy Unknown sneezing, Uncoded 06/20/24 12:23 stuffy nose Review of Systems Review of Systems: Yes all other systems are reviewed and are negative Constitutional: Constitutional: Denies fatigue and Denies fever(s) Cardiovascular: Cardiovascular: Denies chest pain and Denies dyspnea Respiratory: Respiratory: Denies dyspnea Gastrointestinal: Gastrointestinal: Reports abdominal pain, Reports constipation, Reports nausea and Reports vomiting Endocrine: Endocrine: Denies fatigue PMFSH Past Medical History Attestation statement: The following information was validated with the patient. Medical History Rathke's cleft cyst Anxiety GERD (gastroesophageal reflux disease) Nausea Headache Surgical History History of placement of ear tubes Family History Family History Father Heart problem Osteoarthritis Mother Mood disorder Depression Chronic mental illness Maternal Grandmother Lymphoma History of breast cancer Other Substance use disorder Social History Social History Household Members: Family Household Members Other:: Mother Housing: Apartment Do you presently have visiting nurse or other home services: No Alcohol intake: never Patient Tobacco Use Status: Never used Tobacco Smoked in Last 30 Days: No e-Cigarette/Vaping Use: Never Used Second Hand Smoke Exposure: No Substance Use Type: Marijuana Substance Use Frequency: Occasionally Advance Directives: No Advance Directives Information Provided: No service: No 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al status: employed 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) Cognitive needs: No Hearing needs: No Vision needs: Yes (Glasses) Physical Exam ED Vital Signs: Vital Signs - 24 hr 06/20/24 12:22 06/20/24 17:12 Temperature 98.4 F 98.4 F Pulse Rate 75 70 Respiratory Rate 18 16 Blood Pressure 132/75 109/67 Pulse Oximetry 100 98 Oxygen Delivery Method Nasal Cannula Room Air BMI result Body Mass Index 19.9 Const Other: Alert well-appearing Orientation/consciousness: patient oriented x3 Resp Effort & Inspection: normal respiratory effort Cardio Other: Normal peripheral perfusion GI Other: Abdomen is soft, nondistended, generalized tenderness over upper mid to right abdomen without guarding Skin Other: Warm dry no rash Neuro General: patient oriented x3, gait normal, no focal motor deficits and CN's II-XI intact bilaterally Psych Other: Cooperative Course Course Course Narrative: RME, this is a rapid medical exam performed by Jett Ferreira please refer to primary provider for complete H&P- 24-year-old female presents for evaluation of vomiting and dizziness. Patient was recently discharged from this facility last week. Patient had a brain MRI of the did show enhancing lesions, she was currently being worked up for multiple sclerosis. She reports that she has had persistent nausea,, abdominal pain and feels weaker than when she was discharged. Plan for repeat labs and . Medications Administered Discontinued Medications Generic Name Dose Route Start Last Admin Trade Name Freq PRN Reason Stop Dose Admin Sodium Chloride 1,000 mls @ 999 mls/hr 06/20/24 17:15 06/20/24 18:38 Ns IV 06/20/24 18:15 Infused .Q1H1M MITZY Infusion Metoclopramide HCl 10 mg 06/20/24 17:06 06/20/24 17:20 Metoclopramide Hcl 10 Mg/2 Ml Vial IVPUSH 06/20/24 17:07 10 mg ONCE ONE Administration Medical Decision Making Medical Decision Making [facility] Narrative: 24-year-old female who is currently amidst assessment to determine if she has MS versus refractory vertigo, who presents with ongoing nausea vomiting. Patient states she continues to have upper abdominal discomfort, and she is unable to tolerate oral intake. Patient states she has been struggling with constipation, her last bowel movement was Wednesday. Denies abdominal distention or inability to pass flatus. Patient states she was just discharged from the hospital on June 16, her symptoms were improved over the weekend, however she woke this morning with nausea vomiting and abdominal discomfort. During her hospital course, she had a negative CT abdomen and pelvis and abdominal ultrasound, she had an MRI of the brain which was concerning for early signs of MS, she had a lumbar puncture, she currently is pending laboratory studies. She has pending follow up with Neurology. Problem: Refractory nausea vomiting dizziness, a potential diagnosis of MS History: Per patient I have considered the following differential diagnoses: Plan: Screening labs and a viral panel were obtained from triage, everything is completely normal, we will be giving fluid Reglan and obtain a KUB to assess her current stool burden. I am not reimaging her abdomen with an advanced study, she has no new symptoms, and again her labs are completely normal, with a benign abdominal exam. I have independently reviewed the following tests: Labs: No leukocytosis, not anemic, no electrolyte abnormality, not , viral panel negative, urine not infected KUB:Findings: No abnormal bowel dilation to suggest obstruction. No abnormal calcifications. No acute fractures. IMPRESSION: No evidence of bowel obstruction. Lab Data 06/20/24 13:10 06/20/24 13:10 Labs: Lab Results 06/20/24 06/20/24 Range/Units 13:10 13:12 WBC 7.9 (4.8-10.8) X10*3/uL RBC 4.62 (4.20-5.50) X10*6/uL Hgb 14.3 (12.0-16.0) g/dl Hct 41.7 (37.0-47.0) % MCV 90.3 (80.0-98.0) fL MCH 31.0 (27.0-33.0) pg MCHC 34.3 (31.0-35.0) g/dl RDW 13.0 (11.0-16.0) % Plt Count 344 (160-400) X10*3/uL MPV 9.6 (9.4-12.3) fL Immature Gran % (Auto) 0.5 H (0.0-0.4) % Neut % (Auto) 70.1 (45-73) % Lymph % (Auto) 21.4 (20-40) % [place] % (Auto) 6.4 (2-11) % Eos % (Auto) 0.8 (0-4) % Baso % (Auto) 0.8 (0-2) % Lymph # (Auto) 1.7 (1.2-4.9) X10*3/uL [place] # (Auto) 0.5 (0.1-1.2) X10*3/uL Eos # (Auto) 0.1 (0.0-0.4) X10*3/uL Baso # (Auto) 0.1 (0.0-0.2) X10*3/uL Abs Immat Gran (auto) 0.04 H (0.00-0.03) X10*3/uL Absolute Neuts (auto) 5.6 (2.0-8.3) x10*3/uL Absolute Nucleated RBC 0.000 (0.0-0.012) X10*3/uL Nucleated RBC % (auto) 0.0 (0.0-0.2) /100WBC Sodium 138 (135-145) mmol/L Potassium 4.5 (3.3-5.1) mmol/L Chloride 107 (96-108) mmol/L Carbon Dioxide 24 (22-29) mmol/L Anion Gap 12 (12-20) BUN 9 (9-16) mg/dL Creatinine 0.60 (0.5-1.4) mg/dL Estim Creat Clear Calc 112.5 Estimated GFR > 60 Random Glucose 81 (60-115) mg/dL Calcium 9.4 D (8.4-10.2) mg/dL Total Bilirubin 0.8 (0.0-1.0) mg/dL AST 23 (5-31) U/L ALT 36 H (0-31) U/L Alkaline Phosphatase 46 (39-117) U/L Total Protein 7.9 (6.5-8.0) g/dL Albumin 4.5 (3.5-5.0) g/dL Lipase 10 (8-78) U/L Beta HCG, Quant < 2 mIU/mL Urine Color Yellow Urine Appearance Turbid Urine pH 8.5 (5.0-9.0) Ur Specific [place] 1.015 (1.005-1.025) Urine Protein Negative (Neg-Trace) mg/dL Urine Glucose (UA) Negative (Negative) mg/dL Urine Ketones 40 (Negative) mg/dL Urine Blood Negative (Negative) Urine Nitrite Negative (Negative) Ur Leukocyte Esterase Negative (Negative) Urine RBC 0-2 (0-2) /HPF Urine WBC 0-5 (0-5) /HPF Ur Squamous Epith Cells 3-5 (0-2) /HPF Other Crystals Present Urine Bacteria None Seen (None Seen) Hyaline Casts 0-2 (0-2) /LPF Influenza Type A (PCR) NEGATIVE (Negative) Influenza Type B (PCR) NEGATIVE (Negative) RSV RNA Qual (PCR) NEGATIVE (Negative) SARS-CoV-2 RNA (RT-PCR) NEGATIVE (Negative) Discharge Plan Discharge Clinical Impression: Constipation Patient Disposition: Home, Self-Care Instructions: Constipation (ED) Additional Instructions: You were extremely constipated, without any lab abnormalities today. See home care instructions. Purchase Colace this is a stool softener, use it twice a day. Purchase MiraLax, drink 1 cup every hour until you are defecating clear liquid. Use the metoclopramide as needed for nausea, to note this is also a motility agent for your bowel. Keep your pending follow up with Gastroenterology and Neurology. Prescriptions: New metoclopramide HCl 10 mg tablet 10 mg PO Q6H PRN (Reason: nausea and vomiting) Qty: 16 0RF No Action ibuprofen 200 mg Tablet 400 mg PO Q6H PRN (Reason: cramps/pain) ondansetron 4 mg tablet,disintegrating 4 mg PO Q8H PRN (Reason: nausea and vomiting) Qty: 20 0RF Print Language: Telugu
[2024-06-20 13:18] LABS: Basophils Absolute Auto 0.1 X10*3/uL (0.0-0.2); Basophils Percent Auto 0.8 % (0-2); Eosinophils Absolute Auto 0.1 X10*3/uL (0.0-0.4); Eosinophils Percent Auto 0.8 % (0-4); Hematocrit 41.7 % (37.0-47.0); Hemoglobin 14.3 g/dl (12.0-16.0); Imm Gran Abs Auto 0.04 X10*3/uL (0.00-0.03); Imm Gran Pct Auto 0.5 % (0.0-0.4); Lymphocytes Absolute Auto 1.7 X10*3/uL (1.2-4.9); Lymphocytes Percent Auto 21.4 % (20-40); MANUAL DIFF FLAG NO; Mean Corpuscular HGB Conc 34.3 g/dl (31.0-35.0); Mean Corpuscular Volume 90.3 fL (80.0-98.0); Mean Platelet Volume 9.6 fL (9.4-12.3); Monocytes Absolute Auto 0.5 X10*3/uL (0.1-1.2); Monocytes Percent Auto 6.4 % (2-11); Neutrophils Absolute Auto 5.6 x10*3/uL (2.0-8.3); Neutrophils Percent Auto 70.1 % (45-73); Platelet Count 344 X10*3/uL (160-400); Red Blood Count 4.62 X10*6/uL (4.20-5.50); White Blood Count 7.9 X10*3/uL (4.8-10.8)
[2024-06-20 13:23] LABS: Appearance Urine Turbid; Color Urine Yellow; Glucose Urine UA Negative (Negative); Leukocyte Esterase Urine Negative (Negative); Nitrite Urine Negative (Negative); PH 8.5 (5.0-9.0); Specific Gravity - Urine 1.015 (1.005-1.025); Urine Blood Negative (Negative); Urine Ketones 40 mg/dL (Negative); Urine Protein Negative (Neg-Trace)
[2024-06-20 13:29] LABS: Bacteria Urine None Seen (None Seen); Hyaline Casts Urine 0-2 /LPF (0-2); RBC Urine 0-2 /HPF (0-2); WBC Urine 0-5 /HPF (0-5)
[2024-06-20 13:31] LABS: Other Crystals Urine Present
[2024-06-20 13:37] LABS: Alanine Aminotransferase 36 U/L (0-31); Albumin Level 4.5 g/dL (3.5-5.0); Alkaline Phosphatase 46 U/L (39-117); Anion Gap 12 (12-20); Aspartate Amino Transferase 23 U/L (5-31); Bilirubin Total 0.8 mg/dL (0.0-1.0); Blood Urea Nitrogen 9 mg/dL (9-16); Calcium 9.4 mg/dL (8.4-10.2); Carbon Dioxide 24 mmol/L (22-29); Chloride 107 mmol/L (96-108); Creatinine Clr Calc Pharmacy 112.5; Estimated Glomerular Filt Rate > 60; Glucose Random 81 mg/dL (60-115); Lipase 10 U/L (8-78); Potassium 4.5 mmol/L (3.3-5.1); Sodium 138 mmol/L (135-145); Total Protein 7.9 g/dL (6.5-8.0)
[2024-06-20 13:46] LABS: HCG Quantitative < 2 mIU/mL
[2024-06-20 13:57] LABS: Influenza A PCR NEGATIVE (Negative); Influenza B PCR NEGATIVE (Negative); Resp Syncy Virus RNA Qual PCR NEGATIVE (Negative); SARS COV2 PCR INHOUSE NEGATIVE (Negative)
[2024-06-20 17:12] VITALS: BP 109/67; PULSE 70; RESP 16; TEMP 36.9; O2SAT 98
[2024-06-20] MEDS: 0.9 % Sodium Chloride 1,000 ML 999 ML IV (17:20)
[2024-06-20] MEDS: Metoclopramide HCl 10 MG/2 ML VIAL IVPUSH (17:20)
[2024-06-20 18:54] VITALS: BP 112/79; PULSE 68; RESP 20; TEMP 36.8; O2SAT 100
--- OUTSIDE RECORDS SUMMARY | 2024-06-20 19:30 | XMS_ITS | Clinical Summary ---
Author Organization [facility] ity Address [address] [place] [address] Care Team Providers Care Lead Welder Name Role Phone Derek Dia Primary Care Provider [phone] Allergies No known active allergies Medications desogestreL-ethi [...] PM EDT Office Visit Orthopedic Surgery - [place] [address] [phone] William Atkins, DPRashad [address] [address] Health Maintenance Due Date Last Done Comments [...] age to complete this topic Care Teams Lead Welder Relationship Specialty Start Date End Date Derek Dia PA [address] [place] [id number] PCP - General 09/22/23
== END 2024-06-20 18:55 | disposition home or self-care (01) ==
PROVIDERS: Physician Assistant; Emergency Provider Emergency Medicine Emergency Medical Services; PCP Physician Assistant
DX: K59.00 Constipation, unspecified (principal); R11.2 Nausea with vomiting, unspecified; R42 Dizziness and giddiness; R51.9 Headache, unspecified; R10.2 Pelvic and perineal pain; Z03.818 Encounter for observation for suspected exposure to other biological agents ruled out; Z79.899 Other long term (current) drug therapy
CPT/HCPCS: 0241U; 36415; 74018; 80053; 81001; 83690; 84702; 85025; 96361; 96374; 99284; J2765

== ENCOUNTER → 2024-06-20 17:06 | Outpatient (BNV) | payer OTHER, SELFPAY | PROVIDERS: Emergency Provider Emergency Medicine Emergency Medical Services; PCP Physician Assistant; Visit Provider Radiology Diagnostic Radiology | DX: R10.9 Unspecified abdominal pain (principal) | CPT/HCPCS: 74018 ==

== ENCOUNTER 2024-06-21 15:01 | Outpatient (AMB) | payer OTHER, SELFPAY ==
--- NOTE | 2024-06-21 15:07 | A.OFFPC_ITS ---
Vital Signs 06/21/24 15:08 Height 5 ft 2 in Weight 111 lb BMI 20.3 BP 102/68 Blood Pressure Location Lt brachial Position Sitting Pulse 77 Pulse Source Pulse Oximeter Pulse Oximetry (%) 99 Oxygen Delivery Method Room Air Intake Visit Reasons: [facility] 06/16 nausea & vomiting Software Project Lead Required: No Accompanied by: Self / Same As Patient Allergies seasonal Allergy (Unknown, Uncoded 06/21/24 15:17) sneezing, stuffy nose Medication List - Last Reconciled 06/21/24 by Derek Dia PA-C ibuprofen 400 mg PO Q6H PRN metoclopramide HCl 10 mg PO Q6H PRN ondansetron 4 mg PO Q8H PRN Tobacco use date assessed: 06/21/24 Dental Screening Dental Screen Date: 06/21/24 Did you have a dental visit in the last 12 months?: Yes Did you have a dental problem in the last 6 months where you did not have access to dental care?: No Was dental information given to patient?: Patient has dentist HPI [facility] 06/16 nausea & vomiting HPI Details The patient is a 24-year-old female presenting with ongoing neurologic symptoms and a follow-up for possible multiple sclerosis. Recent hospitalization revealed a demyelinating condition, with MRI studies indicating potential multiple sclerosis. A lumbar puncture has been performed with results pending. The patient has experienced persistent balance issues, exacerbated by episodes of vertigo and dizziness, impacting her ability to perform daily tasks and work- related activity. Constipation-induced nausea and vomiting led to ER visits, and MiraLAX provided moderate relief. The onset of symptoms and an unsuccessful prior treatment pathway have prompted further evaluation by multiple specialists. [facility] Medical History Cannabis abuse with unspecified cannabis-induced disorder Rathke's cleft cyst Anxiety GERD (gastroesophageal reflux disease) Nausea Headache Surgical History History of placement of ear tubes Family History Father Heart problem Osteoarthritis Mother Mood disorder Depression Chronic mental illness Maternal Grandmother Lymphoma History of breast cancer Other Substance use disorder Social History Household Members: Family Household Members Other:: Mother Housing: Apartment Do you presently have visiting nurse or other home services: No Alcohol intake: never Patient Tobacco Use Status: Never used Tobacco e-Cigarette/Vaping Use: Never Used Second Hand Smoke Exposure: No Substance Use Type: Marijuana service: No 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al status: employed 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 1. Little interest or pleasure in doing things: not at all 2. Feeling down, depressed, or hopeless: not at all 3. Trouble falling or staying asleep, or sleeping too much: not at all 4. Feeling tired or having little energy: not at all 5. Poor appetite or overeating: not at all 6. Feeling bad about yourself - or that you are a failure or have let yourself or your family down: not at all 7. Trouble concentrating on things, such as reading the newspaper or watching television: not at all 8. Moving or speaking so slowly that other people could have noticed. Or the opposite - being so fidgety or restless that you have been moving around a lot more than usual: not at all 9. Thoughts that you would be better off or of hurting yourself in some way: not at all Total score: 0 Depression Screening Interpretation: Negative Depression Screening Done: Yes 60627 - PHQ-9 Billing: Yes Source: Developed by Drs. Emmanuel Shea, Natalie Brown, Jey Diez and colleagues, with an educational marilee from [employer]. Thrive Questionnaire Date Thrive assessed: 06/21/24 I am a: Patient What is your living situation today?: I have a steady place to live Within the past 12 months, did the food you bought not last and you didn't have the money to get more?: Never true Within the past 12 months, did you worry whether your food would run out before you got money to buy more?: Never true Do you have trouble paying for medicines?: No Do you have trouble getting transportation to medical appointments?: No Do you have trouble paying your heating and electricity bill?: No Do you have trouble taking care of your child, family member or friend?: No Do you have trouble with day-to-day activities such as bathing, preparing meals, shopping, managing finances, etc.?: No Are you currently unemployed and looking for a job?: No Are you interested in more education?: No Please select the resources that you would like help with: None Currently or been in a relationship where the following occur: No concerns reported THRIVE Score: 0 AUDIT C Alcohol Use Questionnaire (AUDIT-C) 1. How often do you have a drink containing alcohol?: Never Total Score: 0 CISCO-7 AMB Questionnaire CISCO-7 Date CISCO - 7 assessed: 06/21/24 Feeling nervous, anxious, or on edge: 0 = Not at all Not being able to stop or control worryin = Not at all Worrying too much about different things: 0 = Not at all Trouble relaxin = Not at all Being so restless that it is hard to sit still: 0 = Not at all Becoming easily annoyed or irritable: 0 = Not at all Feeling afraid as if something awful might happen: 0 = Not at all Total CISCO-7 score (0-4 normal; 5-9 mild; 10-14 moderate; 15-21 severe): 0 Source: Developed by Drs. Emmanuel Shea, Natalie Brown, Jey Diez and colleagues, with an educational marilee from [employer]. CISCO-7 Assessment Billing CISCO-7 Assessment Tool: CISCO-7 Assessment 87141 Review of Systems Const Reports fatigue, Denies headache(s), Reports lethargy and Reports malaise Eyes Denies loss of vision ENT Denies vertigo, Reports dizziness, Denies headache(s) and Denies sore throat Card Denies chest pain, Denies leg edema and Denies lightheadedness Resp Denies cough, Denies hemoptysis and Denies wheezing GI Denies abdominal pain, Denies melena, Reports constipation, Denies diarrhea and Denies vomiting Denies urinary frequency, Denies dysuria and Denies urinary urgency Musc Denies arthralgias, Denies joint swelling, Denies numbness and Denies tingling Neuro Denies Abnormal speech present, Denies behavioral changes, Denies vertigo, Reports dizziness, Denies headache(s), Denies loss of vision, Denies memory loss, Denies numbness and Denies tingling Psych Denies anxiety, Denies behavioral changes, Denies depression, Denies memory loss and Denies panic attacks Endo Reports fatigue Jaspreet/Lymph Denies easy bleeding and Denies easy bruising Aller/Immun Denies wheezing Physical exam (Primary Care) Vital Signs: Last Vital Signs Pulse 77 06/21/24 15:08 BP 102/68 06/21/24 15:08 Pulse Ox 99 06/21/24 15:08 Oxygen Delivery Method Room Air 06/21/24 15:08 BMI result Body Mass Index 20.3 Tobacco/Smoking Status: Tobacco use Status Tobacco use date assessed 06/21/24 06/21/24 15:13 Patient Tobacco Use Status Never used Tobacco 06/21/24 15:13 e-Cigarette/Vaping Use Never Used 06/21/24 15:13 PHQ-9: PHQ-9 Score PHQ-9: Total score 0 06/21/24 15:13 Depression Screening Interpretation: Negative Thrive Assessment: Date of Thrive Assessment Date Thrive assessed 06/21/24 06/21/24 15:13 Currently or been in a relationship where the following occur: No concerns reported Const General: healthy appearing, no acute distress, alert and awake Nutritional Appearance: well nourished Orientation/consciousness: oriented to person, oriented to place and oriented to time HENMT Ears: TM's normal bilaterally General nose exam: Normal nasal mucous membranes and turbinates present Eyes Conjunctivae: conjunctivae normal Sclerae: sclerae normal Pupils: Equal, round and reactive pupils present Neck Neck: Yes no lymphadenopathy and Yes no JVD Thyroid: Thyroid normal Carotids: no bruits Resp Effort & Inspection: normal respiratory effort and not tachypneic Auscultation: no crackles, no rales, no rhonchi and no wheezes Cardio Rate: regular rate Rhythm: regular rhythm Heart sounds: no murmurs and normal S1 and S2 GI Palpation (GI): Soft to palpation, nontender, no hepatomegaly and no splenomegaly Auscultation: normal bowel sounds Skin General skin exam: no rashes or lesions noted and dry skin Neuro General: oriented to person, oriented to place and oriented to time Cranial nerves: Yes Equal, round and reactive pupils present Speech: No Abnormal speech present Gait exam (Neuro): Normal gait present Motor exam (neuro): no tremor noted Extrem Right upper extremity: full ROM Left upper extremity: full ROM Right lower extremity: full ROM; no edema Left lower extremity: full ROM; no edema Psych Mental Status: mental status grossly normal Speech and movement: Normal speech and movement present Affect: normal affect Attitude: cooperative Thought process: Normal thought process present Coding Level of Care Code Est Pt Level 4 (68075) Diagnoses Demyelinating changes in brain G37.9 Balance disorder R26.89 Slow transit constipation K59.01 Constipation type: slow transit constipation Additional Codes PHQ-9 - 26173 - PHQ-9 Billing: Yes ([id number]) CISCO-7 Assessment Billing - CISCO-7 Assessment Tool: CISCO-7 Assessment 74612 ([id number]) Assessment & Plan Assessment & Plan (1) Demyelinating changes in brain: Code(s): G37.9 - Demyelinating disease of central nervous system, unspecified Category: Medical Plan: The patient is being evaluated for multiple sclerosis with pending lumbar punc ture results. Neurology referral is in place for further management and evaluation of possible treatment options such as infusion therapy or steroids. (2) Balance disorder: Code(s): R26.89 - Other abnormalities of gait and mobility Category: Medical Plan: Physical therapy is recommended to improve balance disturbances. Neurological investigation is ongoing to assess the link between balance issues and demyelinating disease. (3) Constipation: Code(s): K59.00 - Constipation, unspecified Category: Medical Qualifiers: Constipation type: slow transit constipation Qualified Code(s): K59.01 - Slow transit constipation Plan: Implementation of a bowel regimen with MiraLAX is advised. Continued evaluation by gastroenterology to manage gastrointestinal symptoms intertwined with neurol [facility] health Orders: Orders PT Evaluation and Treatment Today R26.89 - Other abnormalities of gait and mobility Referrals Neurology Referral G37.9 - Demyelinating disease of central nervous system, unspecified Gastroenterology Referral K59.01 - Slow transit constipation Medications: New lactulose 20 grams (30 mL) PO BID 15 days PRN 946 mL 0RF laxative effect K59.01 - Slow transit constipation
[2024-06-21 15:08] VITALS: BP 102/68; PULSE 77; O2SAT 99; BMI 20.3
--- OUTSIDE RECORDS SUMMARY | 2024-06-21 17:38 | XMS_ITS | Clinical Summary ---
Author Organization [facility] ity Address [address] [place] [id number] Care Team Providers Care Plug Cutter Name Role Phone Derek Dia Primary Care Provider Allergies No known active allergies Medications desogestreL-ethi [...] PM EDT Office Visit [facility] [place] [address] [phone] William Atkins, DPRashad [address] [address] Health Maintenance Due Date Last Done Comments [...] age to complete this topic Care Teams Plug Cutter Relationship Specialty Start Date End Date Derek Dia PA [address] [place] [id number] PCP - General 09/22/23
== END 2024-06-21 15:37 | disposition home or self-care (01) ==
LOC: HO.HMCH 15:02
PROVIDERS: PCP Physician Assistant; Visit Provider Physician Assistant
DX: G37.9 Demyelinating disease of central nervous system, unspecified (principal); R26.89 Other abnormalities of gait and mobility; K59.01 Slow transit constipation

== ENCOUNTER → 2024-06-21 15:01 | Outpatient (BNVA) | payer OTHER, SELFPAY | PROVIDERS: PCP Physician Assistant; Visit Provider Physician Assistant | DX: G37.9 Demyelinating disease of central nervous system, unspecified (principal); R26.89 Other abnormalities of gait and mobility; K59.01 Slow transit constipation | CPT/HCPCS: 96127; 99212 ==